=== PATIENT | male | born 1945 | race Hispanic/Latino ===

== ENCOUNTER 2018-02-08 18:35 | Emergency (ER) | payer OTHER ==
--- OUTSIDE RECORDS SUMMARY | 2018-02-08 18:37 | XMS REPORT | Clinical Summary ---
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 qualitative assessment is normal (55-60%). Normal diastolic function. LA size is normal (16-34 ml/m2). 2. The right ventricular chamber size and systolic function are within normal limits. RA cavity size is normal. Unable to estimate peak systolic PA pressure; inadequate TR velocity signal. 3. No significant valvular abnormalities. Previous Study No prior exam available for comparison. Signature Findings Technical Quality: Technically adequate exam. Rhythm/BP Sinus bradycardia during the exam. Left Ventricle The LV endocardium is partially visualized. Consider IV ultrasound enhancing agent for improved endocardial border detection. The left ventricle is chamber size (by PSLAX dimension) is normal (male - LVIDd 4.2-5.8cm) . Mild concentric LV hypertrophy. All of the LV segments contract normally . Global LV systolic function normal . Estimated LVEF by qualitative assessment is normal (55-60%) . Normal diastolic function. Left Atrium LA is adequately visualized. LA size is normal (16-34 ml/m2) . Right Ventricle The right ventricular chamber size and systolic function are within normal limits. Right Atrium The RA is well visualized. RA cavity size is normal . Aortic Valve Mild AoV cusp thickening. No evidence of aortic stenosis. No evidence of aortic regurgitation. Mitral Valve Normal MV structure. Trace mitral regurgitation. Tricuspid Valve TV structure is normal. A trace of tricuspid regurgitation. Unable to estimate peak systolic PA pressure; inadequate TR velocity signal. Pulmonic Valve Normal PV structure and function by limited views and Doppler. Aorta Aortic root size (SInus of Valsalva diameter) is normal . Pericardium No pericardial effusion is visualized. IVC/SVC/PA/PV/Pleural The inferior vena cava is adequately visualized. The inferior vena cava size is normal . The estimated RA pressure by IVC dynamics 5-10mmHg . A left pleural effusion is noted. Left pleural effusion appears small in size. Chambers/Structures Left Atrium LA Dimension: 3.76 cm LA Area: 19.72 cm^2 LA Volume: 54.78 ml LA Vol. Index: 29 ml/m^2 Left Ventricle LVIDd: 4.8 cm LVIDs: 3.27 cm LV Septum Diastolic: 1.27 cm LV PW Diastolic: 1.22 cm LV FS: 31.9 % LVOT Diameter: 2.1 cm Aorta Ao Root S of Wendy.: 2.99 cm Doppler/Quantitative Measurements Mitral Valve MV Peak E-Wave: 0.75 m/s MV Peak A-Wave: 0.51 m/s E/A Ratio: 1.49 Peak Gradient: 2.26 mmHg Deceleration Time: 144.6 msec MV Fabian. Peak: Tissue Doppler E' Lateral Velocity: 0.12 m/s A' Lateral Velocity: 0.08 m/s E/E': 6.38 Aortic Valve Peak Velocity: 0.82 m/s Mean Velocity: 0.59 m/s Peak Gradient: 2.67 mmHg Mean Gradient: 1.51 mmHg AV Area (continuity): 2.89 cm^2 AV VTI: 19.28 cm AV DVI: 0.84 LVOT Peak Velocity: 0.68 m/s Peak Gradient: 1.85 mmHg Mean Velocity: 0.44 m/s Mean Gradient: 0.92 mmHg LVOT Diameter: 2.1 cm LVOT VTI: 16.11 cm LVOT Area: 3.46 cm^2 LVOT SV:55.77 ml LVOT CO: 3.29 l/min LVOT CI: 1.73 l/min/m^2 Troponin I (07/12/2017 11:08 PM) Component Value Ref Range Troponin I 0.03 0.00 - 0.03 ng/mL Specimen Performing Laboratory Blood [address] [address] Narrative Troponin I (TnI) levels must be interpreted in the context of the presenting symptoms and the clinical findings. Elevated TnI levels indicate myocardial damage, but are not specific for ischemic heart disease. Elevated TnI levels are seen in patients with other cardiac conditions (including myocarditis and congestive heart failure), and slight TnI elevations occur in patients with other conditions, including sepsis, renal failure, acidosis, acute neurological disease, and persistent tachyarrhythmia. Creatine Kinase (CK), Total and MB (07/12/2017 11:08 PM) Component Value Ref Range Total CK 224 (H) 29 - 200 U/L CK-MB 2.8 0.0 - 6.6 ng/mL MB Relative Index 1.3 % Specimen Performing Laboratory Blood [address] [address] Narrative CK-MB Reference Range: <6.7Normal 6.7-10.0Borderline >10.0 Abnormal Blood gas, arterial (07/09/2017 6:32 PM) Component Value Ref Range pH, Arterial 7.34 (L) 7.35 - 7.45 pCO2, Arterial 43 35 - 45 mmHg pO2, Arterial 86 80 - 90 mmHg O2 Sat, Arterial 96.0 96.0 - 97.0 % HCO3, Arterial 23 21 - 29 mmol/L Base Excess, Arterial -3.2 (L) -2.0 - 3.0 mmol/L Patient Temperature 37.0 C FIO2 36.0 % Specimen Performing Laboratory Blood, Arterial - Line, Arterial [address] [address] CBC with platelet count + automated diff (07/09/2017 6:30 PM)Only the most recent of3 resultswithin the time period is included. Component Value Ref Range WBC 15.2 (H) 3.5 - 10.5 K/L RBC 3.37 (L) 4.63 - 6.08 M/L Hemoglobin 11.1 (L) 13.7 - 17.5 GM/DL Hematocrit 32.7 (L) 40.1 - 51.0 % MCV 97.0 (H) 79.0 - 92.2 fL MCH 32.9 (H) 25.7 - 32.2 pg MCHC 33.9 32.3 - 36.5 GM/DL RDW 13.1 11.6 - 14.4 % Platelets 428 150 - 450 K/CU MM MPV 9.3 (L) 9.4 - 12.4 fL nRBC 0 0 - 0 /100 WBC % Neutros 80 % % Lymphs 14 % % Monos 4 % % Eos 0 % % Baso 0 % # Neutros 12.19 (H) 1.78 - 5.38 K/L # Lymphs 2.11 1.32 - 3.57 K/L # Monos 0.66 0.30 - 0.82 K/L # Eos 0.03 (L) 0.04 - 0.54 K/L # Baso 0.06 0.01 - 0.08 K/L Immature Granulocytes-Relative 1 0 - 1 % Specimen Performing Laboratory Blood [address] [address] Prothrombin time/INR (07/09/2017 6:30 PM)Only the most recent of4 resultswithin the time period is included. Component Value Ref Range Protime 14.6 11.7 - 14.7 seconds INR 1.1 <=5.9 Specimen Performing Laboratory Blood [address] [address] Narrative RECOMMENDED COUMADIN/WARFARIN INR THERAPY RANGES STANDARD DOSE: 2.0 - 3.0 Includes: PROPHYLAXIS for venous thrombosis, systemic embolization; TREATMENT for venous thrombosis and/or pulmonary embolus. HIGH RISK: Target INR is 2.5-3.5 for patients with mechanical heart valves. CBC with platelet count + automated diff (07/09/2017 6:30 PM)Only the most recent of3 resultswithin the time period is included. Specimen Performing Laboratory Blood Narrative The following orders were created for panel order CBC with platelet count + automated diff. Procedure Abnormality Status --------- ------ CBC with platelet count ...[[id number]]AbnormalFinal result Please view results for these tests on the individual orders. Comprehensive metabolic panel (07/09/2017 6:30 PM) Component Value Ref Range Protein, Total 6.4 6.0 - 8.3 gm/dL Albumin 2.7 (L) 3.5 - 5.0 g/dL Alkaline Phosphatase 121 40 - 150 U/L Total Bilirubin 0.5 0.2 - 1.2 mg/dL Sodium 135 (L) 136 - 145 meq/L Potassium 3.3 (L) 3.5 - 5.1 meq/L Chloride 106 98 - 107 meq/L CO2 22 22 - 29 meq/L BUN 6 (L) 7 - 21 mg/dL Creatinine 0.55 (L) 0.57 - 1.25 mg/dL Glucose 108 (H) 70 - 105 mg/dL Calcium 8.5 8.4 - 10.2 mg/dL AST 27 5 - 34 U/L ALT 16 6 - 55 U/L EGFR 147Comment: ESTIMATED GFR IS NOT ACCURATE mL/min/1.73 sq m CREATININE CLEARANCE IN PREDICTING GLOMERULAR FILTRATION RATE. ESTIMATED GFR IS NOT APPLICABLE FOR DIALYSIS PATIENTS. Specimen Performing Laboratory Blood [address] [address] POC ACTIVATED CLOTTING TIME (07/09/2017 4:51 PM)Only the most recent of4 resultswithin the time period is included. Component Value Ref Range Activated Clotting Time 142Comment: TESTED AT [address] sec [address] Specimen Performing Laboratory [address] [address] Electrolytes (07/06/2017 1:11 PM) Component Value Ref Range Sodium 134 (L) 136 - 145 meq/L Potassium 3.9 3.5 - 5.1 meq/L Chloride 98 98 - 107 meq/L CO2 27 22 - 29 meq/L Specimen Performing Laboratory Blood [address] [address] PERIPHERAL VASCULAR REPORT - SCAN (07/02/2017 12:50 PM)Only the most recent of2 resultswithin the time period is included.Arterial doppler legs bilateral (07/02 9:30 AM) Component Value Ref Range Ejection Fraction Specimen Performing Laboratory [facility] CPACS Impressions Right Impression 1. The common femoral and profunda arteries are patent with triphasic/biphasic flow and calcified vessels. 2. There is > 50% stenosis of the common femoral artery with a peak velocity of 220 cm/s. 3. The superficial femoral, popliteal, peroneal and proximal and mid posterior tibial arteries are occluded. 4. The femoral to posterior tibial bypass is occluded. 5. The anterior tibial artery is patent with slow velocity monophasic flow. 6. The PT and DP MARC's were unobtainable due to the doppler not being able to milk pickup truck driver the low monophasic flow. 7. The TBI was unobtainable for the toes had no detectable flow by PPG. Left Impression 1. The common femoral, profunda femoral, popliteal, and anterior tibial arteries are patent with triphasic to monophasic Doppler waveforms throughout with calcified vessels. 2. The superficial femoral, posterior tibial and peroneal arteries are occluded. 3. There is > 50% stenosis of the proximal anterior tibial artery with an elevated velocity of 256 cm/s. 4. The PT MARC is unobtainable. The DP MARC is 0.58, within severe obstruction range. 5. The TBI was unobtainable for the digit had no flow by PPG. 6. Digits two through five had reduced flow by PPG. Digit one had no flow by PPG. Conclusions Summary Arterial pressures and Doppler analysis were performed bilaterally. Adequate Doppler signals were obtained. On the right, the common femoral and profunda arteries were patent with triphasic/biphasic flow and calcified vessels. There was stenosis of the femoral artery. The superficial femoral, popliteal, peroneal and proximal and mid posterior tibial, and the femoral to posterior tibial bypass are occluded. The anterior tibial artery was patent with slow velocity monophasic flow. The PT and DP MARC's were unobtainable due to the doppler not being able to milk pickup truck driver the low monophasic flow. The TBI was unobtainable for the toes had no detectable flow by PPG. On the left, the common femoral, profunda femoral, popliteal, and anterior tibial arteries were patent with triphasic to monophasic Doppler waveforms throughout with calcified vessels. The superficial femoral, posterior tibial and peroneal arteries were occluded. There was stenosis of the proximal anterior tibial artery. The PT MARC was unobtainable. The DP MARC was within the severe obstruction range. The TBI was unobtainable for the digit had no flow by PPG. Digits two through five had reduced flow by PPG. Digit one had no flow by PPG. Signature Velocities are measured in cm/s ; Diameters are measured in cm LE Duplex Measurements Right Left + + + + + + + + + + !Location ! !PSV !EDV!Waveform ! !PSV !EDV!Waveform ! + + + + + + + + + + !Mid Common Femoral ! !220 ! !Triphasic! !149 ! !Triphasic! + + + + + + + + + + !Prox PFA ! !87.4! !Biphasic ! !111 ! !Biphasic ! + + + + + + + + + + !Prox SFA ! !! !Absent ! !! !Absent ! + + + + + + + + + + !Mid SFA ! !! !Absent ! !! !Absent ! + + + + + + + + + + !Dist SFA ! !! !Absent ! !! !Absent ! + + + + + + + + + + !Prox Popliteal ! !! !Absent ! !57.4! !Monophasic ! + + + + + + + + + + !Dist Popliteal ! !! !Absent ! !58.1! !Monophasic ! + + + + + + + + + + !Prox WORKFORCE CONSULTANT ! !! !Absent ! !! !Absent ! + + + + + + + + + + !Mid WORKFORCE CONSULTANT ! !! !Absent ! !! !Absent ! + + + + + + + + + + !Dist WORKFORCE CONSULTANT ! !24.4! !Monophasic ! !! !Absent ! + + + + + + + + + + !Prox LEIDY ! !17.9! !Monophasic ! !256 ! !Monophasic ! + + + + + + + + + + !Mid LEIDY ! !17.9! !Monophasic ! !44.4! !Monophasic ! + + + + + + + + + + !Dist LEIDY ! !11.8! !Monophasic ! !53! !Monophasic ! + + + + + + + + + + !Prox Peroneal ! !! !Absent ! !! !Absent ! + + + + + + + + + + !Dist Peroneal ! !! !Absent ! !! !Absent ! + + + + + + + + + + Narrative [facility] - Lower Extremity Arterial Duplex Demographics Patient NameJOSE DANIEL WALKER Date of Study 07/02/2017 72 Visit [id number] Male of 1945 Number Referring Orlin MainRoom Number 1110 Physician Dietary Internship Robert William. InterpretingJ. Meek Gutierres RVT, Theodora NARVAEZ, RPVI Procedure Type of Study: Extremities Arteries: Lower Extremities Arterial Duplex, ARTERIAL DOPPLER LEGS, BILATERAL. Patient Status:TODAY. Study Location:Vascular Lab. Technical Quality:Adequate visualization. Risk Factors History of Disease + + + + !Diagnosis !Date!Comments ! + + + + !History/Risk Factors: !06/30/2017!PVD ! !!!Smoker ! !!!HTN ! !!!S/P Right LE bypass graft(occluded) ! + + + + Procedure Note Interface, External Ris In - 07/02/2017 12:06 PM CDT [facility] - Lower Extremity Arterial Duplex Demographics Patient Name JOSE DANIEL WALKER Date of Study 07/02/2017 Age 72 Visit Number [id number] Gender Male Date of 1945 Number Referring Orlin Main Room Number 1110 Physician Dietary Internship Robert William. Stefan Gutierres Pawan, ARS Physician , RPELE Procedure Type of Study: Extremities Arteries: Lower Extremities Arterial Duplex, ARTERIAL DOPPLER LEGS, BILATERAL. Patient Status:TODAY. Study Location:Vascular Lab. Technical Quality:Adequate visualization. Risk Factors History of Disease + + + + !Diagnosis !Date !Comments ! + + + + !History/Risk Factors: !06/30/2017!PVD ! ! ! !Smoker ! ! ! !HTN ! ! ! !S/P Right LE bypass graft(occluded) ! + + + + Impressions Right Impression 1. The common femoral and profunda arteries are patent with triphasic/biphasic flow and calcified vessels. 2. There is > 50% stenosis of the common femoral artery with a peak velocity of 220 cm/s. 3. The superficial femoral, popliteal, peroneal and proximal and mid posterior tibial arteries are occluded. 4. The femoral to posterior tibial bypass is occluded. 5. The anterior tibial artery is patent with slow velocity monophasic flow. 6. The PT and DP MARC's were unobtainable due to the doppler not being able to milk pickup truck driver the low monophasic flow. 7. The TBI was unobtainable for the toes had no detectable flow by PPG. Left Impression 1. The common femoral, profunda femoral, popliteal, and anterior tibial arteries are patent with triphasic to monophasic Doppler waveforms throughout with calcified vessels. 2. The superficial femoral, posterior tibial and peroneal arteries are occluded. 3. There is > 50% stenosis of the proximal anterior tibial artery with an elevated velocity of 256 cm/s. 4. The PT MARC is unobtainable. The DP MARC is 0.58, within severe obstruction range. 5. The TBI was unobtainable for the digit had no flow by PPG. 6. Digits two through five had reduced flow by PPG. Digit one had no flow by PPG. Conclusions Summary Arterial pressures and Doppler analysis were performed bilaterally. Adequate Doppler signals were obtained. On the right, the common femoral and profunda arteries were patent with triphasic/biphasic flow and calcified vessels. There was stenosis of the femoral artery. The superficial femoral, popliteal, peroneal and proximal and mid posterior tibial, and the femoral to posterior tibial bypass are occluded. The anterior tibial artery was patent with slow velocity monophasic flow. The PT and DP MARC's were unobtainable due to the doppler not being able to milk pickup truck driver the low monophasic flow. The TBI was unobtainable for the toes had no detectable flow by PPG. On the left, the common femoral, profunda femoral, popliteal, and anterior tibial arteries were patent with triphasic to monophasic Doppler waveforms throughout with calcified vessels. The superficial femoral, posterior tibial and peroneal arteries were occluded. There was stenosis of the proximal anterior tibial artery. The PT MRAC was unobtainable. The DP MARC was within the severe obstruction range. The TBI was unobtainable for the digit had no flow by PPG. Digits two through five had reduced flow by PPG. Digit one had no flow by PPG. Signature Velocities are measured in cm/s ; Diameters are measured in cm LE Duplex Measurements Right Left + + + ------+ + + + +-------- ---------+ + !Location ! !PSV !EDV !Waveform ! !PSV !EDV !Waveform ! + + + ------+ + + + +-------- ---------+ + !Mid Common Femoral ! !220 ! !Triphasic ! !149 ! !Triphasic ! + + + ------+ + + + +-------- ---------+ + !Prox PFA ! !87.4 ! !Biphasic ! !111 ! !Biphasic ! + + + ------+ + + + +-------- ---------+ + !Prox SFA ! ! ! !Absent ! ! ! !Absent ! + + + ------+ + + + +-------- ---------+ + !Mid SFA ! ! ! !Absent ! ! ! !Absent ! + + + ------+ + + + +-------- ---------+ + !Dist SFA ! ! ! !Absent ! ! ! !Absent ! + + + ------+ + + + +-------- ---------+ + !Prox Popliteal ! ! ! !Absent ! !57.4 ! !Monophasic ! + + + ------+ + + + +-------- ---------+ + !Dist Popliteal ! ! ! !Absent ! !58.1 ! !Monophasic ! + + + ------+ + + + +-------- ---------+ + !Prox WORKFORCE CONSULTANT ! ! ! !Absent ! ! ! !Absent ! + + + ------+ + + + +-------- ---------+ + !Mid WORKFORCE CONSULTANT ! ! ! !Absent ! ! ! !Absent ! + + + ------+ + + + +-------- ---------+ + !Dist WORKFORCE CONSULTANT ! !24.4 ! !Monophasic ! ! ! !Absent ! + + + ------+ + + + +-------- ---------+ + !Prox LEIDY ! !17.9 ! !Monophasic ! !256 ! !Monophasic ! + + + ------+ + + + +-------- ---------+ + !Mid LEIDY ! !17.9 ! !Monophasic ! !44.4 ! !Monophasic ! + + + ------+ + + + +-------- ---------+ + !Dist LEIDY ! !11.8 ! !Monophasic ! !53 ! !Monophasic ! + + + ------+ + + + +-------- ---------+ + !Prox Peroneal ! ! ! !Absent ! ! ! !Absent ! + + + ------+ + + + +-------- ---------+ + !Dist Peroneal ! ! ! !Absent ! ! ! !Absent ! + + + ------+ + + + +-------- ---------+ + PT/aPTT (07/02/2017 3:55 AM) Component Value Ref Range Protime 14.6 11.7 - 14.7 seconds INR 1.2 <=5.9 PTT 39.3 (H) 22.5 - 36.0 seconds Specimen Performing Laboratory [place] [address] Narrative RECOMMENDED COUMADIN/WARFARIN INR THERAPY RANGES STANDARD DOSE: 2.0 - 3.0 Includes: PROPHYLAXIS for venous thrombosis, systemic embolization; TREATMENT for venous thrombosis and/or pulmonary embolus. HIGH RISK: Target INR is 2.5-3.5 for patients with mechanical heart valves. Vein Mapping Legs Bilateral (06/30/2017 6:35 PM) Component Value Ref Range Ejection Fraction Specimen Performing Laboratory [facility] CPACS Impressions Right Impression 1. There is no deep venous venous obstruction in the common femoral, profunda femoral, femoral, popliteal or posterior tibial veins. 2. Both peroneal and one posterior tibial veins are not seen. 3. The Great saphenous vein graft is occluded. 4. Small saphenous vein is not seen. Left Impression 1. There is no deep venous venous obstruction in the common femoral, profunda femoral, femoral, popliteal or posterior tibial veins. 2. Both peroneal and one posterior tibial veins are not seen. 3. There is no superficial venous obstruction in the great saphenous vein. 4. Small saphenous vein is not seen. Conclusions Summary Venous duplex imaging and compression of the bilateral lower extremities was performed. The veins were difficult to visualize due to arterial wall calcific shadowing. The bilateral deep venous systems were patent and compressible with no evidence of thrombus where visualized. The right Great saphenous vein graft is occluded. Usable greater Saphenous vein conduit in the left lower extremity. Superficial venous measurements are documented below. The venous Doppler waveforms were phasic with respiration. Signature Velocities are measured in cm/s ; Diameters are measured in cm LE Vein Mapping Superficial - Great Saphenous Vein Right Left + + + + + + + + !Location ! !Diameter!Depth ! !Diameter!Depth ! + + + + + + + + !GSV High Thigh ! !0.31 ! ! + + + + ------ -----+ !GSV Mid Thigh ! !0.35 ! ! + + + + ------ -----+ !GSV Low Thigh ! !0.36 ! ! + + + + ------ -----+ !GSV High Calf ! !0.35 ! ! + + + + ------ -----+ !GSV Mid Calf ! !0.34 ! ! + + + + ------ -----+ !GSV Low Calf ! !0.33 ! ! + + + + ------ -----+ !GSV Ankle ! !0.36 ! ! + + + + ------ -----+ Narrative [facility] - Lower Extremities Vein Mapping Demographics Patient Name El WALKER of Study06/30/2017 [id number] Age72 Visit Number [id number] Gender Male Accession Number [id number] [facility] of [facility]1945 [facility] [id number] Physician Brandi MenaInterpreting Aliza Wilder MD, VI Procedure Type of Study: Veins: Lower Extremity Vein Mapping, VEIN MAPPING, LOWER EXTREMITY, BILATERAL. Indications for Study:Pre-Op Vein Mapping for Arterial Venous Fistula or Graft. Patient Status:TODAY. Study Location:Portable. Technical Quality:Technically Difficult. Risk Factors History of Disease + + + + !Diagnosis !Date!Comments ! + + + + !History/Risk Factors: !06/30/2017!PVD ! !!!Smoker ! !!!HTN ! !!!S/P Right LE bypass graft(occluded) ! + + + + Procedure Note Interface, External Ris In - 07/01/2017 6:18 AM CDT [facility] - Lower Extremities Vein Mapping Demographics Patient Name JOSE DANIEL WALKER Date of Study 06/30/2017 Age 72 Visit Number [id number] Gender Male Accession Number [id number] Date of 1945 Referring Orlin Main Room Number 1110 Physician Dietary Internship Caitlin Gutierres T Physician , RPVI Procedure Type of Study: Veins: Lower Extremity Vein Mapping, VEIN MAPPING, LOWER EXTREMITY, BILATERAL. Indications for Study:Pre-Op Vein Mapping for Arterial Venous Fistula or Graft. Patient Status:TODAY. Study Location:Portable. Technical Quality:Technically Difficult. Risk Factors History of Disease + + + + !Diagnosis !Date !Comments ! + + + + !History/Risk Factors: !06/30/2017!PVD ! ! ! !Smoker ! ! ! !HTN ! ! ! !S/P Right LE bypass graft(occluded) ! + + + + Impressions Right Impression 1. There is no deep venous venous obstruction in the common femoral, profunda femoral, femoral, popliteal or posterior tibial veins. 2. Both peroneal and one posterior tibial veins are not seen. 3. The Great saphenous vein graft is occluded. 4. Small saphenous vein is not seen. Left Impression 1. There is no deep venous venous obstruction in the common femoral, profunda femoral, femoral, popliteal or posterior tibial veins. 2. Both peroneal and one posterior tibial veins are not seen. 3. There is no superficial venous obstruction in the great saphenous vein. 4. Small saphenous vein is not seen. Conclusions Summary Venous duplex imaging and compression of the bilateral lower extremities was performed. The veins were difficult to visualize due to arterial wall calcific shadowing. The bilateral deep venous systems were patent and compressible with no evidence of thrombus where visualized. The right Great saphenous vein graft is occluded. Usable greater Saphenous vein conduit in the left lower extremity. Superficial venous measurements are documented below. The venous Doppler waveforms were phasic with respiration. Signature Velocities are measured in cm/s ; Diameters are measured in cm LE Vein Mapping Superficial - Great Saphenous Vein Right Left + + + + + + -----+ + !Location ! !Diameter !Depth ! !Diameter !Depth ! + + + + + + -----+ + !GSV High Thigh ! !0.31 ! ! + + + ------+ + !GSV Mid Thigh ! !0.35 ! ! + + + ------+ + !GSV Low Thigh ! !0.36 ! ! + + + ------+ + !GSV High Calf ! !0.35 ! ! + + + ------+ + !GSV Mid Calf ! !0.34 ! ! + + + ------+ + !GSV Low Calf ! !0.33 ! ! + + + ------+ + !GSV Ankle ! !0.36 ! ! + + + ------+ + XR chest AP portable (06/27/2017 10:40 PM) Specimen Performing Laboratory GE RIS Narrative FINAL REPORT Comparison examination: None No pneumothorax, focal pulmonary consolidation, or significant pleural effusion. Normal cardiomediastinal contours. Demineralized skeleton. Multiple old healed left rib fractures. Normal soft tissues. Impression: No acute abnormality. Signed: Edmar Carmona MD Report Verified Date/Time:06/28/2017 01:35:21 Reading Location: [facility] [id number] Ortho Consult Reading Room Procedure Note Interface, External Ris In - 06/28/2017 1:37 AM CDT FINAL REPORT Comparison examination: None No pneumothorax, focal pulmonary consolidation, or significant pleural effusion. Normal cardiomediastinal contours. Demineralized skeleton. Multiple old healed left rib fractures. Normal soft tissues. Impression: No acute abnormality. Signed: Edmar Carmona MD Report Verified Date/Time: 06/28/2017 01:35:21 Reading Location: [facility] [address] [id number] Ortho Consult Reading Room after 02/07/2017
--- OUTSIDE RECORDS SUMMARY | 2018-02-08 18:39 | XMS REPORT ---
:1945 [facility] Address [address] [place] [address] Care Team Providers Name Role Phone STEPHANIE BONE Unavailable Unavailable EMORYBARBER Unavailable Unavailable Problems This patient has no known problems. Allergies, Adverse Reactions, Alerts This patient has no known allergies or adverse reactions. Medications This patient has no known medications. Results Test Description Test Time Test Comments Text Results Atomic Results Result Comments TISSUE EXAM 2017-07-30 11:00:00 Surgical Pathology Report Case: [id number] Authorizing Provider: Stephanie Bone MD Collected: 07/22/2017 1348 Ordering Location: [facility] PERI[facility] Received: 07/23/2017 0851 SERVICES Pathologist: Marquis Carolina MD Specimen: Leg, Right, RIGHT ABOVE KNEE AMPUTATION BONE AND SOFT TISSUE, RIGHT LEG, AMPUTATION: -GANGRENOUS NECROSIS -BONE AND SOFT TISSUE MARGINS VIABLE Signing Pathologist Direct Phone Line: [phone] signed by Marquis Carolina MD on 07/30/2017 at 11:00 [id number] leg acute ischemiaRight above-knee amputation The specimen is received in a biohazard bag labeled with the patient's information and labeled "right above-knee amputation" and consists of a right majra-vrb-uwup amputation with exposed femur measuring 7 cm in length x 3 cm in diameter, leg from resection margin to heel measuring 20 x 9 cm and foot from heel to great toe measuring 21 x 7 cm. The entire foot has a blue-purple discoloration with all toes completely involved with gangrene. The area measures ___ 13 x 7 cm in greatest dimension. There are also two gangrenous wounds, one on the lateral malleolus measuring 1.5 cm and on the heel measuring 4 cm in greatest dimension. The anterior and posterior tibialis vessels have atherosclerotic changes with thrombi.Section code: A1, skin margin en face; A2, area of gangrene and underlying bone on lateral malleolus; A3, gangrenous skin from other areas described; A4, cross section of 5th digit submitted for decalcification; A5, femoropopliteal vessels; A6, anterior tibialis vessels; A7, posterior tibialis vessels (A5 through A7 for light decal); A8, bone marrow from femur submitted for light decal. CG/ewThe soft tissue sections demonstrate marked acute and chronic inflammation with necrosis and overlying ulceration of the epidermis. The bone shows marrow necrosis with fibrovascular replacement, chronic inflammation, and bony remodeling POCT-GLUCOSE METER 2017-07-25 12:09:00 Test Item Value Reference Range Comments POC-GLUCOSE METER (BEAKER) (test 100 mg/dL 70-110 TESTED AT [facility] [address] [facility] exgc=5360) [facility] [address] [id number] 09:25:00 Test Item Value Reference Range Comments PHOSPHORUS (BEAKER) (test dfua=680) 2.8 mg/dL 2.3-4.7 [id number] 09:25:00 Test Item Value Reference Range Comments MAGNESIUM (BEAKER) (test buvr=363) 1.9 mg/dL 1.6-2.6 BASIC METABOLIC [id number] 09:25:00 Test Item Value Reference Range Comments SODIUM (BEAKER) (test 129 meq/L 136-145 bpgn=248) POTASSIUM (BEAKER) (test 4.5 meq/L 3.5-5.1 widu=187) CHLORIDE (BEAKER) (test 98 meq/L 98-107 jale=256) CO2 (BEAKER) (test 23 meq/L 22-29 ooge=889) BLOOD UREA NITROGEN 10 mg/dL 7-21 (BEAKER) (test bqmn=567) CREATININE (BEAKER) (test 0.57 mg/dL 0.57-1.25 ktgi=231) GLUCOSE RANDOM (BEAKER) 92 mg/dL 70-105 (test phak=237) CALCIUM (BEAKER) (test 8.7 mg/dL 8.4-10.2 medc=249) EGFR (BEAKER) (test 141 mL/min/1.73 sq m ESTIMATED GFR IS NOT iljk=9627) ACCURATE CREATININE CLEARANCE IN PREDICTING GLOMERULAR FILTRATION RATE. ESTIMATED GFR IS NOT APPLICABLE FOR DIALYSIS PATIENTS. POCT-GLUCOSE [id number] 08:41:00 Test Item Value Reference Range Comments POC-GLUCOSE METER (BEAKER) 94 mg/dL 70-110 TESTED AT [address] (test hylr=3436) [facility] [address] CBC (HEMOGRAM ONLY)2017-07-25 07:20:00 Test Item Value Reference Range Comments WHITE BLOOD CELL COUNT (BEAKER) (test mkij=108) 10.3 K/ L 3.5-10.5 RED BLOOD CELL COUNT (BEAKER) (test lyco=585) 3.19 M/ L 4.63-6.08 HEMOGLOBIN (BEAKER) (test sqca=785) 10.0 GM/DL 13.7-17.5 HEMATOCRIT (BEAKER) (test gvjd=261) 30.3 % 40.1-51.0 MEAN CORPUSCULAR VOLUME (BEAKER) (test sicy=565) 95.0 fL 79.0-92.2 MEAN CORPUSCULAR HEMOGLOBIN (BEAKER) (test 31.3 pg 25.7-32.2 zwlj=720) MEAN CORPUSCULAR HEMOGLOBIN CONC (BEAKER) (test 33.0 GM/DL 32.3-36.5 dkdz=827) RED CELL DISTRIBUTION WIDTH (BEAKER) (test 13.8 % 11.6-14.4 uuil=787) PLATELET COUNT (BEAKER) (test fksl=022) 576 K/CU MM 150-450 MEAN PLATELET VOLUME (BEAKER) (test tpyh=104) 9.2 fL 9.4-12.4 NUCLEATED RED BLOOD CELLS (BEAKER) (test 0 /100 WBC 0-0 zsnl=161) POCT-GLUCOSE [id number] 22:44:00 Test Item Value Reference Range Comments POC-GLUCOSE METER (BEAKER) 118 mg/dL 70-110 TESTED AT [address] (test wtax=0868) [facility] [address] POCT-GLUCOSE [id number] 17:45:00 Test Item Value Reference Range Comments POC-GLUCOSE METER (BEAKER) 96 mg/dL 70-110 TESTED AT [address] (test fgxy=2415) [place] [id number] POCT-GLUCOSE [id number] 12:54:00 Test Item Value Reference Range Comments POC-GLUCOSE METER (BEAKER) 94 mg/dL 70-110 TESTED AT [facility] [address] [facility] (test irhb=7675) [facility] [address] POCT-GLUCOSE [id number] 07:59:00 Test Item Value Reference Range Comments POC-GLUCOSE METER (BEAKER) 123 mg/dL 70-110 TESTED AT [facility] [address] [facility] (test cjtr=8688) [facility] [address] [id number] 07:44:00 Test Item Value Reference Range Comments MAGNESIUM (BEAKER) (test ppso=069) 1.8 mg/dL 1.6-2.6 [id number] 07:44:00 Test Item Value Reference Range Comments PHOSPHORUS (BEAKER) (test svwr=539) 3.3 mg/dL 2.3-4.7 BASIC METABOLIC [id number] 07:44:00 Test Item Value Reference Range Comments SODIUM (BEAKER) (test 132 meq/L 136-145 yqmb=832) POTASSIUM (BEAKER) (test 3.7 meq/L 3.5-5.1 catl=611) CHLORIDE (BEAKER) (test 100 meq/L 98-107 kkig=316) CO2 (BEAKER) (test 26 meq/L 22-29 evlt=982) BLOOD UREA NITROGEN 5 mg/dL 7-21 (BEAKER) (test ztyl=329) CREATININE (BEAKER) (test 0.56 mg/dL 0.57-1.25 lfhc=958) GLUCOSE RANDOM (BEAKER) 87 mg/dL 70-105 (test pewh=053) CALCIUM (BEAKER) (test 8.6 mg/dL 8.4-10.2 hvkl=284) EGFR (BEAKER) (test 144 mL/min/1.73 sq m ESTIMATED GFR IS NOT xtvm=1643) ACCURATE CREATININE CLEARANCE IN PREDICTING GLOMERULAR FILTRATION RATE. ESTIMATED GFR IS NOT APPLICABLE FOR DIALYSIS PATIENTS. CBC (HEMOGRAM ONLY)2017-07-24 07:38:00 Test Item Value Reference Range Comments WHITE BLOOD CELL COUNT (BEAKER) (test wmxh=090) 10.1 K/ L 3.5-10.5 RED BLOOD CELL COUNT (BEAKER) (test szyx=155) 3.07 M/ L 4.63-6.08 HEMOGLOBIN (BEAKER) (test wiiu=878) 9.7 GM/DL 13.7-17.5 HEMATOCRIT (BEAKER) (test evvt=994) 28.9 % 40.1-51.0 MEAN CORPUSCULAR VOLUME (BEAKER) (test qhkq=436) 94.1 fL 79.0-92.2 MEAN CORPUSCULAR HEMOGLOBIN (BEAKER) (test 31.6 pg 25.7-32.2 fvwt=015) MEAN CORPUSCULAR HEMOGLOBIN CONC (BEAKER) (test 33.6 GM/DL 32.3-36.5 gwjq=515) RED CELL DISTRIBUTION WIDTH (BEAKER) (test 14.0 % 11.6-14.4 grwu=237) PLATELET COUNT (BEAKER) (test ecxi=569) 576 K/CU MM 150-450 MEAN PLATELET VOLUME (BEAKER) (test icam=463) 9.4 fL 9.4-12.4 NUCLEATED RED BLOOD CELLS (BEAKER) (test 0 /100 WBC 0-0 dkxk=827) POCT-GLUCOSE [id number] 21:18:00 Test Item Value Reference Range Comments POC-GLUCOSE METER (BEAKER) 122 mg/dL 70-110 TESTED AT [address] (test zzhf=5469) [place] [address] POCT-GLUCOSE [id number] 17:07:00 Test Item Value Reference Range Comments POC-GLUCOSE METER (BEAKER) 99 mg/dL 70-110 TESTED AT [address] (test bxtz=8663) [place] [address] POCT-GLUCOSE [id number] 11:53:00 Test Item Value Reference Range Comments POC-GLUCOSE METER (BEAKER) 123 mg/dL 70-110 TESTED AT [address] (test ikxj=5542) [place] [address] POCT-GLUCOSE [id number] 08:08:00 Test Item Value Reference Range Comments POC-GLUCOSE METER (BEAKER) 124 mg/dL 70-110 TESTED AT [address] (test tnxe=9127) [place] [address] [id number] 06:48:00 Test Item Value Reference Range Comments MAGNESIUM (BEAKER) (test 1.8 mg/dL 1.6-2.6 Specimen slightly hemolyzed lhts=263) [id number] 06:48:00 Test Item Value Reference Range Comments PHOSPHORUS (BEAKER) (test 3.5 mg/dL 2.3-4.7 Specimen slightly hemolyzed ymyl=888) BASIC METABOLIC [id number] 06:48:00 Test Item Value Reference Range Comments SODIUM (BEAKER) (test 129 meq/L 136-145 dyow=392) POTASSIUM (BEAKER) (test 4.0 meq/L 3.5-5.1 Specimen slightly enuv=031) hemolyzed CHLORIDE (BEAKER) (test 98 meq/L 98-107 dmxf=817) CO2 (BEAKER) (test 23 meq/L 22-29 bkni=096) BLOOD UREA NITROGEN 5 mg/dL 7-21 (BEAKER) (test wimk=614) CREATININE (BEAKER) (test 0.57 mg/dL 0.57-1.25 Specimen slightly nrgr=223) hemolyzed GLUCOSE RANDOM (BEAKER) 123 mg/dL 70-105 (test rkeb=044) CALCIUM (BEAKER) (test 8.8 mg/dL 8.4-10.2 mudm=764) EGFR (BEAKER) (test 141 mL/min/1.73 sq m ESTIMATED GFR IS NOT aznu=8423) ACCURATE CREATININE CLEARANCE IN PREDICTING GLOMERULAR FILTRATION RATE. ESTIMATED GFR IS NOT APPLICABLE FOR DIALYSIS PATIENTS. CBC (HEMOGRAM ONLY)2017-07-23 06:23:00 Test Item Value Reference Range Comments WHITE BLOOD CELL COUNT (BEAKER) (test bjtm=990) 14.6 K/ L 3.5-10.5 RED BLOOD CELL COUNT (BEAKER) (test hxtu=686) 3.43 M/ L 4.63-6.08 HEMOGLOBIN (BEAKER) (test dffm=364) 10.9 GM/DL 13.7-17.5 HEMATOCRIT (BEAKER) (test tmio=476) 32.2 % 40.1-51.0 MEAN CORPUSCULAR VOLUME (BEAKER) (test eomy=400) 93.9 fL 79.0-92.2 MEAN CORPUSCULAR HEMOGLOBIN (BEAKER) (test 31.8 pg 25.7-32.2 vkfw=710) MEAN CORPUSCULAR HEMOGLOBIN CONC (BEAKER) (test 33.9 GM/DL 32.3-36.5 qcoo=136) RED CELL DISTRIBUTION WIDTH (BEAKER) (test 13.7 % 11.6-14.4 tnaa=193) PLATELET COUNT (BEAKER) (test tpeh=014) 565 K/CU MM 150-450 MEAN PLATELET VOLUME (BEAKER) (test jjvd=321) 9.5 fL 9.4-12.4 NUCLEATED RED BLOOD CELLS (BEAKER) (test 0 /100 WBC 0-0 ddgr=177) POCT-GLUCOSE [id number] 07:35:00 Test Item Value Reference Range Comments POC-GLUCOSE METER (BEAKER) 106 mg/dL 70-110 TESTED AT [facility] [address] [facility] (test bvid=5569) [facility] [address] [id number] 06:24:00 Test Item Value Reference Range Comments PHOSPHORUS (BEAKER) (test ubmm=326) 3.3 mg/dL 2.3-4.7 [id number] 06:24:00 Test Item Value Reference Range Comments MAGNESIUM (BEAKER) (test cyab=101) 1.9 mg/dL 1.6-2.6 BASIC METABOLIC [id number] 06:24:00 Test Item Value Reference Range Comments SODIUM (BEAKER) (test 131 meq/L 136-145 kpnh=376) POTASSIUM (BEAKER) (test 4.4 meq/L 3.5-5.1 ptlk=391) CHLORIDE (BEAKER) (test 99 meq/L 98-107 atdy=974) CO2 (BEAKER) (test 24 meq/L 22-29 xnqu=895) BLOOD UREA NITROGEN 3 mg/dL 7-21 (BEAKER) (test jdxp=990) CREATININE (BEAKER) (test 0.60 mg/dL 0.57-1.25 dwfs=665) GLUCOSE RANDOM (BEAKER) 101 mg/dL 70-105 (test aqsx=663) CALCIUM (BEAKER) (test 8.7 mg/dL 8.4-10.2 jnxz=164) EGFR (BEAKER) (test 133 mL/min/1.73 sq m ESTIMATED GFR IS NOT pjek=0411) ACCURATE CREATININE CLEARANCE IN PREDICTING GLOMERULAR FILTRATION RATE. ESTIMATED GFR IS NOT APPLICABLE FOR DIALYSIS PATIENTS. CBC (HEMOGRAM ONLY)2017-07-22 06:15:00 Test Item Value Reference Range Comments WHITE BLOOD CELL COUNT (BEAKER) (test avki=306) 10.7 K/ L 3.5-10.5 RED BLOOD CELL COUNT (BEAKER) (test jvbp=334) 3.54 M/ L 4.63-6.08 HEMOGLOBIN (BEAKER) (test ewnr=889) 11.2 GM/DL 13.7-17.5 HEMATOCRIT (BEAKER) (test njan=232) 33.0 % 40.1-51.0 MEAN CORPUSCULAR VOLUME (BEAKER) (test magy=365) 93.2 fL 79.0-92.2 MEAN CORPUSCULAR HEMOGLOBIN (BEAKER) (test 31.6 pg 25.7-32.2 hbwy=901) MEAN CORPUSCULAR HEMOGLOBIN CONC (BEAKER) (test 33.9 GM/DL 32.3-36.5 wtxr=063) RED CELL DISTRIBUTION WIDTH (BEAKER) (test 13.7 % 11.6-14.4 yjqd=029) PLATELET COUNT (BEAKER) (test kgke=453) 548 K/CU MM 150-450 MEAN PLATELET VOLUME (BEAKER) (test cgqg=567) 8.9 fL 9.4-12.4 NUCLEATED RED BLOOD CELLS (BEAKER) (test 0 /100 WBC 0-0 ezqw=082) POCT-GLUCOSE [id number] 21:17:00 Test Item Value Reference Range Comments POC-GLUCOSE METER (BEAKER) 121 mg/dL 70-110 TESTED AT [address] (test khbo=8671) [place] [address] POCT-GLUCOSE [id number] 17:44:00 Test Item Value Reference Range Comments POC-GLUCOSE METER (BEAKER) 128 mg/dL 70-110 TESTED AT [address] (test mwns=5780) [place] [address] POCT-GLUCOSE [id number] 12:33:00 Test Item Value Reference Range Comments POC-GLUCOSE METER (BEAKER) 107 mg/dL 70-110 TESTED AT [address] (test gqii=8423) [place] [address] CBC (HEMOGRAM ONLY)2017-07-21 08:20:00 Test Item Value Reference Range Comments WHITE BLOOD CELL COUNT (BEAKER) (test qkpy=512) 12.1 K/ L 3.5-10.5 RED BLOOD CELL COUNT (BEAKER) (test wtst=829) 3.67 M/ L 4.63-6.08 HEMOGLOBIN (BEAKER) (test hiys=378) 11.6 GM/DL 13.7-17.5 HEMATOCRIT (BEAKER) (test qaqo=442) 34.6 % 40.1-51.0 MEAN CORPUSCULAR VOLUME (BEAKER) (test hogk=702) 94.3 fL 79.0-92.2 MEAN CORPUSCULAR HEMOGLOBIN (BEAKER) (test 31.6 pg 25.7-32.2 jhqo=926) MEAN CORPUSCULAR HEMOGLOBIN CONC (BEAKER) (test 33.5 GM/DL 32.3-36.5 crks=845) RED CELL DISTRIBUTION WIDTH (BEAKER) (test 13.9 % 11.6-14.4 gvzk=578) PLATELET COUNT (BEAKER) (test tpim=018) 566 K/CU MM 150-450 MEAN PLATELET VOLUME (BEAKER) (test hekg=269) 9.4 fL 9.4-12.4 NUCLEATED RED BLOOD CELLS (BEAKER) (test 0 /100 WBC 0-0 ttgs=507) [id number] 07:52:00 Test Item Value Reference Range Comments PHOSPHORUS (BEAKER) (test ffhw=997) 3.3 mg/dL 2.3-4.7 [id number] 07:52:00 Test Item Value Reference Range Comments MAGNESIUM (BEAKER) (test xcck=018) 1.7 mg/dL 1.6-2.6 BASIC METABOLIC [id number] 07:52:00 Test Item Value Reference Range Comments SODIUM (BEAKER) (test 129 meq/L 136-145 illl=419) POTASSIUM (BEAKER) (test 4.1 meq/L 3.5-5.1 xttw=567) CHLORIDE (BEAKER) (test 97 meq/L 98-107 yvir=803) CO2 (BEAKER) (test 25 meq/L 22-29 aksa=059) BLOOD UREA NITROGEN 4 mg/dL 7-21 (BEAKER) (test mqrg=620) CREATININE (BEAKER) (test 0.62 mg/dL 0.57-1.25 qamu=903) GLUCOSE RANDOM (BEAKER) 90 mg/dL 70-105 (test vxkv=503) CALCIUM (BEAKER) (test 8.7 mg/dL 8.4-10.2 sgyv=874) EGFR (BEAKER) (test 128 mL/min/1.73 sq m ESTIMATED GFR IS NOT cvli=9671) ACCURATE CREATININE CLEARANCE IN PREDICTING GLOMERULAR FILTRATION RATE. ESTIMATED GFR IS NOT APPLICABLE FOR DIALYSIS PATIENTS. POCT-GLUCOSE [id number] 22:43:00 Test Item Value Reference Range Comments POC-GLUCOSE METER (BEAKER) 99 mg/dL 70-110 TESTED AT [place] [id number] [facility] (test jjvc=2133) [facility] [address] POCT-GLUCOSE [id number] 12:13:00 Test Item Value Reference Range Comments POC-GLUCOSE METER (BEAKER) 97 mg/dL 70-110 TESTED AT [address] (test xmlw=6464) [facility] [address] [id number] 06:22:00 Test Item Value Reference Range Comments PHOSPHORUS (BEAKER) (test aybj=030) 3.5 mg/dL 2.3-4.7 [id number] 06:22:00 Test Item Value Reference Range Comments MAGNESIUM (BEAKER) (test vjno=282) 1.8 mg/dL 1.6-2.6 BASIC METABOLIC [id number] 06:22:00 Test Item Value Reference Range Comments SODIUM (BEAKER) (test 132 meq/L 136-145 uyni=433) POTASSIUM (BEAKER) (test 4.2 meq/L 3.5-5.1 daqy=520) CHLORIDE (BEAKER) (test 101 meq/L 98-107 jumc=388) CO2 (BEAKER) (test 23 meq/L 22-29 rlrm=612) BLOOD UREA NITROGEN 7 mg/dL 7-21 (BEAKER) (test zoyc=008) CREATININE (BEAKER) (test 0.60 mg/dL 0.57-1.25 kedd=607) GLUCOSE RANDOM (BEAKER) 95 mg/dL 70-105 (test suym=110) CALCIUM (BEAKER) (test 8.5 mg/dL 8.4-10.2 vomx=428) EGFR (BEAKER) (test 133 mL/min/1.73 sq m ESTIMATED GFR IS NOT zaci=5949) ACCURATE CREATININE CLEARANCE IN PREDICTING GLOMERULAR FILTRATION RATE. ESTIMATED GFR IS NOT APPLICABLE FOR DIALYSIS PATIENTS. CBC (HEMOGRAM ONLY)2017-07-20 05:43:00 Test Item Value Reference Range Comments WHITE BLOOD CELL COUNT (BEAKER) (test cvxh=678) 10.9 K/ L 3.5-10.5 RED BLOOD CELL COUNT (BEAKER) (test qeos=544) 3.58 M/ L 4.63-6.08 HEMOGLOBIN (BEAKER) (test iypq=911) 11.2 GM/DL 13.7-17.5 HEMATOCRIT (BEAKER) (test hhco=549) 33.6 % 40.1-51.0 MEAN CORPUSCULAR VOLUME (BEAKER) (test frzl=547) 93.9 fL 79.0-92.2 MEAN CORPUSCULAR HEMOGLOBIN (BEAKER) (test 31.3 pg 25.7-32.2 oltv=054) MEAN CORPUSCULAR HEMOGLOBIN CONC (BEAKER) (test 33.3 GM/DL 32.3-36.5 regv=084) RED CELL DISTRIBUTION WIDTH (BEAKER) (test 14.0 % 11.6-14.4 mkux=200) PLATELET COUNT (BEAKER) (test cjtv=762) 532 K/CU MM 150-450 MEAN PLATELET VOLUME (BEAKER) (test pevm=469) 9.3 fL 9.4-12.4 NUCLEATED RED BLOOD CELLS (BEAKER) (test 0 /100 WBC 0-0 gulh=744) POCT-GLUCOSE [id number] 20:13:00 Test Item Value Reference Range Comments POC-GLUCOSE METER (BEAKER) 113 mg/dL 70-110 TESTED AT [address] (test yftt=9612) [facility] [address] POCT-GLUCOSE [id number] 08:04:00 Test Item Value Reference Range Comments POC-GLUCOSE METER (BEAKER) 101 mg/dL 70-110 TESTED AT [address] (test hicr=9573) [facility] [address] [id number] 05:24:00 Test Item Value Reference Range Comments PHOSPHORUS (BEAKER) (test bzaz=860) 3.4 mg/dL 2.3-4.7 [id number] 05:24:00 Test Item Value Reference Range Comments MAGNESIUM (BEAKER) (test tuja=403) 1.8 mg/dL 1.6-2.6 BASIC METABOLIC [id number] 05:24:00 Test Item Value Reference Range Comments SODIUM (BEAKER) (test 128 meq/L 136-145 vcqn=669) POTASSIUM (BEAKER) (test 4.1 meq/L 3.5-5.1 ccgz=418) CHLORIDE (BEAKER) (test 96 meq/L 98-107 vxyn=887) CO2 (BEAKER) (test 23 meq/L 22-29 oeca=462) BLOOD UREA NITROGEN 4 mg/dL 7-21 (BEAKER) (test oktc=841) CREATININE (BEAKER) (test 0.64 mg/dL 0.57-1.25 swzp=702) GLUCOSE RANDOM (BEAKER) 105 mg/dL 70-105 (test qdao=492) CALCIUM (BEAKER) (test 9.1 mg/dL 8.4-10.2 bbxx=727) EGFR (BEAKER) (test 124 mL/min/1.73 sq m ESTIMATED GFR IS NOT lyec=5614) ACCURATE CREATININE CLEARANCE IN PREDICTING GLOMERULAR FILTRATION RATE. ESTIMATED GFR IS NOT APPLICABLE FOR DIALYSIS PATIENTS. CBC (HEMOGRAM ONLY)2017-07-19 05:20:00 Test Item Value Reference Range Comments WHITE BLOOD CELL COUNT (BEAKER) (test zogg=979) 11.1 K/ L 3.5-10.5 RED BLOOD CELL COUNT (BEAKER) (test ffiy=470) 3.72 M/ L 4.63-6.08 HEMOGLOBIN (BEAKER) (test yper=244) 11.7 GM/DL 13.7-17.5 HEMATOCRIT (BEAKER) (test opfd=904) 34.5 % 40.1-51.0 MEAN CORPUSCULAR VOLUME (BEAKER) (test jwbb=355) 92.7 fL 79.0-92.2 MEAN CORPUSCULAR HEMOGLOBIN (BEAKER) (test 31.5 pg 25.7-32.2 wyet=815) MEAN CORPUSCULAR HEMOGLOBIN CONC (BEAKER) (test 33.9 GM/DL 32.3-36.5 ezpn=942) RED CELL DISTRIBUTION WIDTH (BEAKER) (test 14.2 % 11.6-14.4 dntr=966) PLATELET COUNT (BEAKER) (test rnlm=138) 519 K/CU MM 150-450 MEAN PLATELET VOLUME (BEAKER) (test qptj=646) 9.1 fL 9.4-12.4 NUCLEATED RED BLOOD CELLS (BEAKER) (test 0 /100 WBC 0-0 mifj=242) POCT-GLUCOSE [id number] 22:11:00 Test Item Value Reference Range Comments POC-GLUCOSE METER (BEAKER) 98 mg/dL 70-110 TESTED AT [place] [id number] [facility] (test qhok=3961) [facility] [address] POCT-GLUCOSE [id number] 07:39:00 Test Item Value Reference Range Comments POC-GLUCOSE METER (BEAKER) 96 mg/dL 70-110 TESTED AT [address] (test auaw=3928) [facility] [address] [id number] 05:43:00 Test Item Value Reference Range Comments PHOSPHORUS (BEAKER) (test qiyc=586) 3.3 mg/dL 2.3-4.7 [id number] 05:43:00 Test Item Value Reference Range Comments MAGNESIUM (BEAKER) (test fkqy=020) 1.9 mg/dL 1.6-2.6 BASIC METABOLIC [id number] 05:43:00 Test Item Value Reference Range Comments SODIUM (BEAKER) (test 130 meq/L 136-145 uhfp=841) POTASSIUM (BEAKER) (test 4.1 meq/L 3.5-5.1 tujz=588) CHLORIDE (BEAKER) (test 98 meq/L 98-107 cwce=245) CO2 (BEAKER) (test 24 meq/L 22-29 xpio=650) BLOOD UREA NITROGEN 4 mg/dL 7-21 (BEAKER) (test ozdh=631) CREATININE (BEAKER) (test 0.60 mg/dL 0.57-1.25 usiw=593) GLUCOSE RANDOM (BEAKER) 100 mg/dL 70-105 (test myet=692) CALCIUM (BEAKER) (test 8.7 mg/dL 8.4-10.2 saxx=465) EGFR (BEAKER) (test 133 mL/min/1.73 sq m ESTIMATED GFR IS NOT wwqh=2381) ACCURATE CREATININE CLEARANCE IN PREDICTING GLOMERULAR FILTRATION RATE. ESTIMATED GFR IS NOT APPLICABLE FOR DIALYSIS PATIENTS. CBC (HEMOGRAM ONLY)2017-07-18 05:15:00 Test Item Value Reference Range Comments WHITE BLOOD CELL COUNT (BEAKER) (test eepu=936) 11.9 K/ L 3.5-10.5 RED BLOOD CELL COUNT (BEAKER) (test etgi=174) 3.72 M/ L 4.63-6.08 HEMOGLOBIN (BEAKER) (test owzw=533) 11.8 GM/DL 13.7-17.5 HEMATOCRIT (BEAKER) (test smxe=617) 34.4 % 40.1-51.0 MEAN CORPUSCULAR VOLUME (BEAKER) (test lnzs=621) 92.5 fL 79.0-92.2 MEAN CORPUSCULAR HEMOGLOBIN (BEAKER) (test 31.7 pg 25.7-32.2 qufv=905) MEAN CORPUSCULAR HEMOGLOBIN CONC (BEAKER) (test 34.3 GM/DL 32.3-36.5 maim=039) RED CELL DISTRIBUTION WIDTH (BEAKER) (test 14.6 % 11.6-14.4 mtto=021) PLATELET COUNT (BEAKER) (test zhhh=014) 519 K/CU MM 150-450 MEAN PLATELET VOLUME (BEAKER) (test vvhh=332) 9.2 fL 9.4-12.4 NUCLEATED RED BLOOD CELLS (BEAKER) (test 0 /100 WBC 0-0 kopk=743) POCT-GLUCOSE [id number] 20:53:00 Test Item Value Reference Range Comments POC-GLUCOSE METER (BEAKER) 113 mg/dL 70-110 TESTED AT [address] (test dzst=6986) [facility] [address] [facility], MULTI, PHARM, [id number] 20:10:00FINAL REPORT PROCEDURE: Rest/Stress MYOCARDIAL PERFUSION SPECT with regadenoson\\XA9\\ CPT CODE: 29449 INDICATION: Preoperative evaluation, PAD HISTORY:Cardiac risk factors: Hypertension, hyperlipidemia, tobacco use. Other cardiovascular history: No reported CAD. Current cardiovascular-related medications: Aspirin, amiodarone, atorvastatin, metoprolol, heparin. PROTOCOL: 10.1 mCi of Tc-99m sestamibi was injected iv at rest, and SPECT (tomographic) images were obtained. Also, 30.6 mCi of Tc-99m sestamibi was injected iv at expected peak pharmacologiceffect, and gated SPECT images were obtained. PRELIMINARY STRESS TEST DATA FROM NONINVASIVE CARDIOLOGY : Pharmacologic stress was by 10-second iv infusion of 0.4 mg of regadenoson. Radiotracer was injected 30 seconds after start of stress. Heart rate was 68 beats/min at rest and 82 beats/min (54 % ofMPHR) at tracer injection. BP was 153 /55 mmHg at rest and 144/48 mmHg at [...] wall motion and thickening. QGS LVEF is >70% . IMPRESSION: 1. Normal study. 2. Appropriate pharmacologic stress. 3. Normal myocardial perfusion. 4. Normal resting LV function. 5. Normal extracardiac tracer distribution. 6. No previous [facility] study for comparison. Signed: Jeanie Carolina MDReport Verified Date/Time: 07/17/2017 20:10:02 Reading Location: [address] Reading Room POCT-GLUCOSE [id number] 14: 53:00 Test Item Value Reference Range Comments POC-GLUCOSE METER (BEAKER) 93 mg/dL 70-110 TESTED AT [address] (test doqy=0491) [facility] [address] POCT-GLUCOSE [id number] 08:04:00 Test Item Value Reference Range Comments POC-GLUCOSE METER (BEAKER) 109 mg/dL 70-110 TESTED AT [address] (test sjff=3273) [facility] [address] [id number] 04:51:00 Test Item Value Reference Range Comments PHOSPHORUS (BEAKER) (test oyeq=660) 3.3 mg/dL 2.3-4.7 [id number] 04:51:00 Test Item Value Reference Range Comments MAGNESIUM (BEAKER) (test tnan=902) 1.8 mg/dL 1.6-2.6 BASIC METABOLIC [id number] 04:51:00 Test Item Value Reference Range Comments SODIUM (BEAKER) (test 131 meq/L 136-145 bsma=134) POTASSIUM (BEAKER) (test 3.8 meq/L 3.5-5.1 zmgz=498) CHLORIDE (BEAKER) (test 98 meq/L 98-107 ohah=569) CO2 (BEAKER) (test 24 meq/L 22-29 zsnv=464) BLOOD UREA NITROGEN 5 mg/dL 7-21 (BEAKER) (test vzyk=259) CREATININE (BEAKER) (test 0.59 mg/dL 0.57-1.25 sbvg=905) GLUCOSE RANDOM (BEAKER) 98 mg/dL 70-105 (test ddsn=162) CALCIUM (BEAKER) (test 8.8 mg/dL 8.4-10.2 lfwy=940) EGFR (BEAKER) (test 136 mL/min/1.73 sq m ESTIMATED GFR IS NOT iyub=8249) ACCURATE CREATININE CLEARANCE IN PREDICTING GLOMERULAR FILTRATION RATE. ESTIMATED GFR IS NOT APPLICABLE FOR DIALYSIS PATIENTS. CBC (HEMOGRAM ONLY)2017-07-17 04:33:00 Test Item Value Reference Range Comments WHITE BLOOD CELL COUNT (BEAKER) (test nzze=416) 11.4 K/ L 3.5-10.5 RED BLOOD CELL COUNT (BEAKER) (test vggl=671) 3.61 M/ L 4.63-6.08 HEMOGLOBIN (BEAKER) (test bneu=401) 11.3 GM/DL 13.7-17.5 HEMATOCRIT (BEAKER) (test gqeg=638) 33.2 % 40.1-51.0 MEAN CORPUSCULAR VOLUME (BEAKER) (test rzbz=103) 92.0 fL 79.0-92.2 MEAN CORPUSCULAR HEMOGLOBIN (BEAKER) (test 31.3 pg 25.7-32.2 gojx=780) MEAN CORPUSCULAR HEMOGLOBIN CONC (BEAKER) (test 34.0 GM/DL 32.3-36.5 xhgk=010) RED CELL DISTRIBUTION WIDTH (BEAKER) (test 14.7 % 11.6-14.4 ebbb=107) PLATELET COUNT (BEAKER) (test gyvc=887) 498 K/CU MM 150-450 MEAN PLATELET VOLUME (BEAKER) (test ygur=147) 9.2 fL 9.4-12.4 NUCLEATED RED BLOOD CELLS (BEAKER) (test 0 /100 WBC 0-0 pngm=951) POCT-GLUCOSE [id number] 21:21:00 Test Item Value Reference Range Comments POC-GLUCOSE METER (BEAKER) 120 mg/dL 70-110 TESTED AT [facility] [address] [facility] (test ddys=3475) [facility] [id number] BASIC METABOLIC [id number] 19:38:00 Test Item Value Reference Range Comments SODIUM (BEAKER) (test 131 meq/L 136-145 zqki=548) POTASSIUM (BEAKER) (test 4.1 meq/L 3.5-5.1 lsjx=134) CHLORIDE (BEAKER) (test 98 meq/L 98-107 sfbc=994) CO2 (BEAKER) (test 27 meq/L 22-29 qahs=269) BLOOD UREA NITROGEN 6 mg/dL 7-21 (BEAKER) (test mlpy=657) CREATININE (BEAKER) (test 0.61 mg/dL 0.57-1.25 imgt=827) GLUCOSE RANDOM (BEAKER) 98 mg/dL 70-105 (test ulqe=572) CALCIUM (BEAKER) (test 8.9 mg/dL 8.4-10.2 zdio=503) EGFR (BEAKER) (test 131 mL/min/1.73 sq m ESTIMATED GFR IS NOT dbay=4200) ACCURATE CREATININE CLEARANCE IN PREDICTING GLOMERULAR FILTRATION RATE. ESTIMATED GFR IS NOT APPLICABLE FOR DIALYSIS PATIENTS. [id number] 19:25:00 Test Item Value Reference Range Comments PARTIAL THROMBOPLASTIN TIME (BEAKER) (test 35.0 seconds 22.5-36.0 xpaw=353) CBC (HEMOGRAM ONLY)2017-07-16 19:13:00 Test Item Value Reference Range Comments WHITE BLOOD CELL COUNT (BEAKER) (test xkzq=866) 12.7 K/ L 3.5-10.5 RED BLOOD CELL COUNT (BEAKER) (test ojlv=716) 3.65 M/ L 4.63-6.08 HEMOGLOBIN (BEAKER) (test namy=760) 11.5 GM/DL 13.7-17.5 HEMATOCRIT (BEAKER) (test chwp=707) 33.5 % 40.1-51.0 MEAN CORPUSCULAR VOLUME (BEAKER) (test pofx=591) 91.8 fL 79.0-92.2 MEAN CORPUSCULAR HEMOGLOBIN (BEAKER) (test 31.5 pg 25.7-32.2 rgue=657) MEAN CORPUSCULAR HEMOGLOBIN CONC (BEAKER) (test 34.3 GM/DL 32.3-36.5 zhep=451) RED CELL DISTRIBUTION WIDTH (BEAKER) (test 14.8 % 11.6-14.4 ilgh=798) PLATELET COUNT (BEAKER) (test xaot=748) 495 K/CU MM 150-450 MEAN PLATELET VOLUME (BEAKER) (test hozq=313) 9.0 fL 9.4-12.4 NUCLEATED RED BLOOD CELLS (BEAKER) (test 0 /100 WBC 0-0 jjlz=703) POCT-GLUCOSE [id number] 07:50:00 Test Item Value Reference Range Comments POC-GLUCOSE METER (BEAKER) 109 mg/dL 70-110 TESTED AT [facility] [address] [facility] (test uwmb=6590) [facility] [address] [id number] 07:16:00 Test Item Value Reference Range Comments PARTIAL THROMBOPLASTIN TIME (BEAKER) (test 101.3 seconds 22.5-36.0 aoea=933) [id number] 05:32:00 Test Item Value Reference Range Comments MAGNESIUM (BEAKER) (test 1.8 mg/dL 1.6-2.6 Specimen slightly hemolyzed bwlj=309) [id number] 05:32:00 Test Item Value Reference Range Comments PHOSPHORUS (BEAKER) (test 3.7 mg/dL 2.3-4.7 Specimen slightly hemolyzed fysj=160) BASIC METABOLIC [id number] 05:32:00 Test Item Value Reference Range Comments SODIUM (BEAKER) (test 132 meq/L 136-145 niss=649) POTASSIUM (BEAKER) (test 3.9 meq/L 3.5-5.1 Specimen slightly ruve=428) hemolyzed CHLORIDE (BEAKER) (test 99 meq/L 98-107 jjcg=922) CO2 (BEAKER) (test 25 meq/L 22-29 varl=081) BLOOD UREA NITROGEN 4 mg/dL 7-21 (BEAKER) (test bswz=161) CREATININE (BEAKER) (test 0.60 mg/dL 0.57-1.25 Specimen slightly mhvp=881) hemolyzed GLUCOSE RANDOM (BEAKER) 102 mg/dL 70-105 (test drxa=675) CALCIUM (BEAKER) (test 8.8 mg/dL 8.4-10.2 dnzr=897) EGFR (BEAKER) (test 133 mL/min/1.73 sq m ESTIMATED GFR IS NOT oeel=5341) ACCURATE CREATININE CLEARANCE IN PREDICTING GLOMERULAR FILTRATION RATE. ESTIMATED GFR IS NOT APPLICABLE FOR DIALYSIS PATIENTS. CBC (HEMOGRAM ONLY)2017-07-16 05:14:00 Test Item Value Reference Range Comments WHITE BLOOD CELL COUNT (BEAKER) (test druv=584) 10.4 K/ L 3.5-10.5 RED BLOOD CELL COUNT (BEAKER) (test ngyn=426) 3.29 M/ L 4.63-6.08 HEMOGLOBIN (BEAKER) (test blif=907) 10.8 GM/DL 13.7-17.5 HEMATOCRIT (BEAKER) (test yjrr=123) 30.7 % 40.1-51.0 MEAN CORPUSCULAR VOLUME (BEAKER) (test ejoq=868) 93.3 fL 79.0-92.2 MEAN CORPUSCULAR HEMOGLOBIN (BEAKER) (test 32.8 pg 25.7-32.2 kykf=000) MEAN CORPUSCULAR HEMOGLOBIN CONC (BEAKER) (test 35.2 GM/DL 32.3-36.5 cfyh=157) RED CELL DISTRIBUTION WIDTH (BEAKER) (test 13.2 % 11.6-14.4 yfes=926) PLATELET COUNT (BEAKER) (test mbdz=347) 529 K/CU MM 150-450 MEAN PLATELET VOLUME (BEAKER) (test mbwo=485) 9.4 fL 9.4-12.4 NUCLEATED RED BLOOD CELLS (BEAKER) (test 0 /100 WBC 0-0 tjyk=797) POCT-GLUCOSE [id number] 20:54:00 Test Item Value Reference Range Comments POC-GLUCOSE METER (BEAKER) 114 mg/dL 70-110 TESTED AT [address] (test zlsf=2630) [facility] [address] POCT-GLUCOSE [id number] 17:52:00 Test Item Value Reference Range Comments POC-GLUCOSE METER (BEAKER) 113 mg/dL 70-110 TESTED AT [address] (test cuuc=4933) [facility] [address] POCT-GLUCOSE [id number] 17:50:00 Test Item Value Reference Range Comments POC-GLUCOSE METER (BEAKER) 136 mg/dL 70-110 TESTED AT [address] (test dvnj=3085) [facility] [address] [id number] 14:38:00 Test Item Value Reference Range Comments PARTIAL THROMBOPLASTIN TIME (BEAKER) (test 90.2 seconds 22.5-36.0 zroc=625) [id number] 09:03:00 Test Item Value Reference Range Comments PARTIAL THROMBOPLASTIN TIME (BEAKER) (test 77.5 seconds 22.5-36.0 ctvp=092) POCT-GLUCOSE [id number] 08:06:00 Test Item Value Reference Range Comments POC-GLUCOSE METER (BEAKER) 89 mg/dL 70-110 TESTED AT [address] (test poxh=9371) [facility] [address] BASIC METABOLIC [id number] 01:59:00 Test Item Value Reference Range Comments SODIUM (BEAKER) (test 133 meq/L 136-145 yjtb=701) POTASSIUM (BEAKER) (test 3.9 meq/L 3.5-5.1 trga=958) CHLORIDE (BEAKER) (test 99 meq/L 98-107 oahm=436) CO2 (BEAKER) (test 23 meq/L 22-29 cvvq=706) BLOOD UREA NITROGEN 4 mg/dL 7-21 (BEAKER) (test hqeb=939) CREATININE (BEAKER) (test 0.59 mg/dL 0.57-1.25 fyjz=580) GLUCOSE RANDOM (BEAKER) 94 mg/dL 70-105 (test rdwa=071) CALCIUM (BEAKER) (test 8.8 mg/dL 8.4-10.2 kfvj=470) EGFR (BEAKER) (test 136 mL/min/1.73 sq m ESTIMATED GFR IS NOT rvuu=5598) ACCURATE CREATININE CLEARANCE IN PREDICTING GLOMERULAR FILTRATION RATE. ESTIMATED GFR IS NOT APPLICABLE FOR DIALYSIS PATIENTS. [id number] 01:58:00 Test Item Value Reference Range Comments PHOSPHORUS (BEAKER) (test cmmo=888) 3.7 mg/dL 2.3-4.7 [id number] 01:58:00 Test Item Value Reference Range Comments MAGNESIUM (BEAKER) (test gere=061) 1.8 mg/dL 1.6-2.6 [id number] 01:54:00 Test Item Value Reference Range Comments PARTIAL THROMBOPLASTIN TIME (BEAKER) (test 58.6 seconds 22.5-36.0 xgai=543) CBC (HEMOGRAM ONLY)2017-07-15 01:46:00 Test Item Value Reference Range Comments WHITE BLOOD CELL COUNT (BEAKER) (test kuxs=256) 11.0 K/ L 3.5-10.5 RED BLOOD CELL COUNT (BEAKER) (test pujg=258) 3.49 M/ L 4.63-6.08 HEMOGLOBIN (BEAKER) (test qaej=452) 11.5 GM/DL 13.7-17.5 HEMATOCRIT (BEAKER) (test iqvq=919) 33.1 % 40.1-51.0 MEAN CORPUSCULAR VOLUME (BEAKER) (test swvp=047) 94.8 fL 79.0-92.2 MEAN CORPUSCULAR HEMOGLOBIN (BEAKER) (test 33.0 pg 25.7-32.2 ipcx=078) MEAN CORPUSCULAR HEMOGLOBIN CONC (BEAKER) (test 34.7 GM/DL 32.3-36.5 jauf=549) RED CELL DISTRIBUTION WIDTH (BEAKER) (test 13.2 % 11.6-14.4 zxwx=246) PLATELET COUNT (BEAKER) (test pmbf=829) 495 K/CU MM 150-450 MEAN PLATELET VOLUME (BEAKER) (test fmdj=700) 9.1 fL 9.4-12.4 NUCLEATED RED BLOOD CELLS (BEAKER) (test 0 /100 WBC 0-0 mdem=359) [id number] 23:30:00 Test Item Value Reference Range Comments PARTIAL THROMBOPLASTIN TIME (BEAKER) (test 116.8 seconds 22.5-36.0 bqxc=613) POCT-GLUCOSE [id number] 21:26:00 Test Item Value Reference Range Comments POC-GLUCOSE METER (BEAKER) 101 mg/dL 70-110 TESTED AT [facility] [address] [facility] (test evid=8349) [facility] [address] POCT-GLUCOSE [id number] 18:14:00 Test Item Value Reference Range Comments POC-GLUCOSE METER (BEAKER) 82 mg/dL 70-110 TESTED AT [address] (test cpys=2439) [facility] [address] [id number] 15:43:00 Test Item Value Reference Range Comments PARTIAL THROMBOPLASTIN TIME (BEAKER) (test 65.7 seconds 22.5-36.0 ackb=949) POCT-GLUCOSE [id number] 12:44:00 Test Item Value Reference Range Comments POC-GLUCOSE METER (BEAKER) 121 mg/dL 70-110 TESTED AT [address] (test jzux=5177) [place] [id number] POCT-GLUCOSE [id number] 08:26:00 Test Item Value Reference Range Comments POC-GLUCOSE METER (BEAKER) 99 mg/dL 70-110 TESTED AT [address] (test qerq=6112) [facility] [address] [id number] 07:58:00 Test Item Value Reference Range Comments PHOSPHORUS (BEAKER) (test owpw=287) 2.4 mg/dL 2.3-4.7 [id number] 07:58:00 Test Item Value Reference Range Comments MAGNESIUM (BEAKER) (test jjdq=835) 1.6 mg/dL 1.6-2.6 BASIC METABOLIC [id number] 07:58:00 Test Item Value Reference Range Comments SODIUM (BEAKER) (test 131 meq/L 136-145 cuza=039) POTASSIUM (BEAKER) (test 4.8 meq/L 3.5-5.1 rzib=118) CHLORIDE (BEAKER) (test 102 meq/L 98-107 xztw=218) CO2 (BEAKER) (test 22 meq/L 22-29 toji=288) BLOOD UREA NITROGEN 3 mg/dL 7-21 (BEAKER) (test bnyb=852) CREATININE (BEAKER) (test 0.58 mg/dL 0.57-1.25 tmgx=063) GLUCOSE RANDOM (BEAKER) 102 mg/dL 70-105 (test nefq=177) CALCIUM (BEAKER) (test 8.8 mg/dL 8.4-10.2 nkey=066) EGFR (BEAKER) (test 139 mL/min/1.73 sq m ESTIMATED GFR IS NOT viuo=9981) ACCURATE CREATININE CLEARANCE IN PREDICTING GLOMERULAR FILTRATION RATE. ESTIMATED GFR IS NOT APPLICABLE FOR DIALYSIS PATIENTS. [id number] 07:22:00 Test Item Value Reference Range Comments PARTIAL THROMBOPLASTIN TIME (BEAKER) (test 64.2 seconds 22.5-36.0 hlej=381) CBC (HEMOGRAM ONLY)2017-07-14 07:07:00 Test Item Value Reference Range Comments WHITE BLOOD CELL COUNT (BEAKER) (test agcw=127) 10.5 K/ L 3.5-10.5 RED BLOOD CELL COUNT (BEAKER) (test bdlq=520) 3.56 M/ L 4.63-6.08 HEMOGLOBIN (BEAKER) (test vvcj=149) 11.8 GM/DL 13.7-17.5 HEMATOCRIT (BEAKER) (test hnce=944) 34.6 % 40.1-51.0 MEAN CORPUSCULAR VOLUME (BEAKER) (test idfo=492) 97.2 fL 79.0-92.2 MEAN CORPUSCULAR HEMOGLOBIN (BEAKER) (test 33.1 pg 25.7-32.2 iuok=529) MEAN CORPUSCULAR HEMOGLOBIN CONC (BEAKER) (test 34.1 GM/DL 32.3-36.5 xhdx=304) RED CELL DISTRIBUTION WIDTH (BEAKER) (test 13.2 % 11.6-14.4 mdhj=730) PLATELET COUNT (BEAKER) (test vmac=222) 458 K/CU MM 150-450 MEAN PLATELET VOLUME (BEAKER) (test khyr=492) 9.2 fL 9.4-12.4 NUCLEATED RED BLOOD CELLS (BEAKER) (test 0 /100 WBC 0-0 miqs=695) [id number] 22:44:00 Test Item Value Reference Range Comments PARTIAL THROMBOPLASTIN TIME (BEAKER) (test 47.9 seconds 22.5-36.0 xthw=874) POCT-GLUCOSE [id number] 21:32:00 Test Item Value Reference Range Comments POC-GLUCOSE METER (BEAKER) 110 mg/dL 70-110 TESTED AT [address] (test nzlo=8673) [facility] [address] POCT-GLUCOSE [id number] 18:25:00 Test Item Value Reference Range Comments POC-GLUCOSE METER (BEAKER) 109 mg/dL 70-110 TESTED AT [address] (test wyat=3465) [facility] [address] [id number] 14:09:00 Test Item Value Reference Range Comments PARTIAL THROMBOPLASTIN TIME (BEAKER) (test 42.7 seconds 22.5-36.0 sqri=500) [id number] 10:34:00 Test Item Value Reference Range Comments PARTIAL THROMBOPLASTIN TIME (BEAKER) (test 124.2 seconds 22.5-36.0 ktoq=196) [id number] 01:47:00 Test Item Value Reference Range Comments PHOSPHORUS (BEAKER) (test rfnq=933) 2.5 mg/dL 2.3-4.7 [id number] 01:47:00 Test Item Value Reference Range Comments MAGNESIUM (BEAKER) (test lviy=888) 1.9 mg/dL 1.6-2.6 BASIC METABOLIC [id number] 01:47:00 Test Item Value Reference Range Comments SODIUM (BEAKER) (test 133 meq/L 136-145 sagm=076) POTASSIUM (BEAKER) (test 3.5 meq/L 3.5-5.1 jlbv=340) CHLORIDE (BEAKER) (test 101 meq/L 98-107 mran=370) CO2 (BEAKER) (test 26 meq/L 22-29 jsub=758) BLOOD UREA NITROGEN 4 mg/dL 7-21 (BEAKER) (test hysv=946) CREATININE (BEAKER) (test 0.53 mg/dL 0.57-1.25 muwr=402) GLUCOSE RANDOM (BEAKER) 125 mg/dL 70-105 (test umev=840) CALCIUM (BEAKER) (test 8.2 mg/dL 8.4-10.2 hyaf=124) EGFR (BEAKER) (test 154 mL/min/1.73 sq m ESTIMATED GFR IS NOT dizn=3494) ACCURATE CREATININE CLEARANCE IN PREDICTING GLOMERULAR FILTRATION RATE. ESTIMATED GFR IS NOT APPLICABLE FOR DIALYSIS PATIENTS. CBC (HEMOGRAM ONLY)2017-07-13 01:31:00 Test Item Value Reference Range Comments WHITE BLOOD CELL COUNT (BEAKER) (test osbn=187) 7.9 K/ L 3.5-10.5 RED BLOOD CELL COUNT (BEAKER) (test sgtv=958) 3.16 M/ L 4.63-6.08 HEMOGLOBIN (BEAKER) (test gwsn=146) 10.4 GM/DL 13.7-17.5 HEMATOCRIT (BEAKER) (test quol=734) 30.1 % 40.1-51.0 MEAN CORPUSCULAR VOLUME (BEAKER) (test gubn=653) 95.3 fL 79.0-92.2 MEAN CORPUSCULAR HEMOGLOBIN (BEAKER) (test 32.9 pg 25.7-32.2 tpxz=138) MEAN CORPUSCULAR HEMOGLOBIN CONC (BEAKER) (test 34.6 GM/DL 32.3-36.5 xnaw=162) RED CELL DISTRIBUTION WIDTH (BEAKER) (test 13.0 % 11.6-14.4 lizz=777) PLATELET COUNT (BEAKER) (test qnmk=434) 417 K/CU MM 150-450 MEAN PLATELET VOLUME (BEAKER) (test rzpe=097) 8.9 fL 9.4-12.4 NUCLEATED RED BLOOD CELLS (BEAKER) (test 0 /100 WBC 0-0 zeet=836) CREATINE KINASE (CK), TOTAL AND [id number] 23:45:00 Test Item Value Reference Range Comments CREATINE KINASE TOTAL (BEAKER) (test svvc=662) 224 U/L 29-200 CREATINE KINASE-MB (BEAKER) (test lpwt=877) 2.8 ng/mL 0.0-6.6 CREATINE KINASE-MB INDEX (BEAKER) (test vjwj=743) 1.3 % CK-MB Reference Range:<6.7 Normal6.7-10.0 Borderline>10.0 AbnormalTROPONIN [id number] 23:45:00 Test Item Value Reference Range Comments TROPONIN I (BEAKER) (test lzbz=455) 0.03 ng/mL 0.00-0.03 Troponin I (TnI) levels must be interpreted [...] failure, acidosis, acute neurological disease, and persistent tachyarrhythmia.[id number] 23:39:00 Test Item Value Reference Range Comments MAGNESIUM (BEAKER) (test gcdj=378) 1.5 mg/dL 1.6-2.6 BASIC METABOLIC [id number] 23:39:00 Test Item Value Reference Range Comments SODIUM (BEAKER) (test 135 meq/L 136-145 xxpm=699) POTASSIUM (BEAKER) (test 3.7 meq/L 3.5-5.1 fvxc=579) CHLORIDE (BEAKER) (test 100 meq/L 98-107 wdsf=546) CO2 (BEAKER) (test 27 meq/L 22-29 mnjn=535) BLOOD UREA NITROGEN 4 mg/dL 7-21 (BEAKER) (test pzxh=218) CREATININE (BEAKER) (test 0.54 mg/dL 0.57-1.25 cioi=280) GLUCOSE RANDOM (BEAKER) 117 mg/dL 70-105 (test hgmu=851) CALCIUM (BEAKER) (test 8.3 mg/dL 8.4-10.2 pgia=779) EGFR (BEAKER) (test 150 mL/min/1.73 sq m ESTIMATED GFR IS NOT rjem=6000) ACCURATE CREATININE CLEARANCE IN PREDICTING GLOMERULAR FILTRATION RATE. ESTIMATED GFR IS NOT APPLICABLE FOR DIALYSIS PATIENTS. POCT-GLUCOSE [id number] 17:55:00 Test Item Value Reference Range Comments POC-GLUCOSE METER (BEAKER) 93 mg/dL 70-110 TESTED AT [address] (test yvdh=0171) [place] [address] POCT-GLUCOSE [id number] 17:24:00 Test Item Value Reference Range Comments POC-GLUCOSE METER (BEAKER) 101 mg/dL 70-110 TESTED AT [address] (test yaid=4066) [place] [id number] POCT-GLUCOSE [id number] 06:58:00 Test Item Value Reference Range Comments POC-GLUCOSE METER (BEAKER) 116 mg/dL 70-110 TESTED AT [address] (test nstc=1195) [place] [address] [id number] 06:07:00 Test Item Value Reference Range Comments PHOSPHORUS (BEAKER) (test aovn=373) 2.3 mg/dL 2.3-4.7 [id number] 06:07:00 Test Item Value Reference Range Comments MAGNESIUM (BEAKER) (test ybea=179) 1.7 mg/dL 1.6-2.6 BASIC METABOLIC [id number] 06:07:00 Test Item Value Reference Range Comments SODIUM (BEAKER) (test 134 meq/L 136-145 wtmf=643) POTASSIUM (BEAKER) (test 3.3 meq/L 3.5-5.1 qdpa=435) CHLORIDE (BEAKER) (test 98 meq/L 98-107 vkvz=577) CO2 (BEAKER) (test 28 meq/L 22-29 slyf=018) BLOOD UREA NITROGEN 4 mg/dL 7-21 (BEAKER) (test mqtw=491) CREATININE (BEAKER) (test 0.57 mg/dL 0.57-1.25 iuch=577) GLUCOSE RANDOM (BEAKER) 94 mg/dL 70-105 (test tosl=263) CALCIUM (BEAKER) (test 8.6 mg/dL 8.4-10.2 hkxz=185) EGFR (BEAKER) (test 141 mL/min/1.73 sq m ESTIMATED GFR IS NOT kmim=5836) ACCURATE CREATININE CLEARANCE IN PREDICTING GLOMERULAR FILTRATION RATE. ESTIMATED GFR IS NOT APPLICABLE FOR DIALYSIS PATIENTS. [id number] 05:55:00 Test Item Value Reference Range Comments PARTIAL THROMBOPLASTIN TIME (BEAKER) (test 81.2 seconds 22.5-36.0 qbjv=235) CBC (HEMOGRAM ONLY)2017-07-12 05:52:00 Test Item Value Reference Range Comments WHITE BLOOD CELL COUNT (BEAKER) (test eopj=951) 10.9 K/ L 3.5-10.5 RED BLOOD CELL COUNT (BEAKER) (test rlzq=115) 3.63 M/ L 4.63-6.08 HEMOGLOBIN (BEAKER) (test sdce=668) 11.8 GM/DL 13.7-17.5 HEMATOCRIT (BEAKER) (test qcbr=293) 35.3 % 40.1-51.0 MEAN CORPUSCULAR VOLUME (BEAKER) (test rmxm=751) 97.2 fL 79.0-92.2 MEAN CORPUSCULAR HEMOGLOBIN (BEAKER) (test 32.5 pg 25.7-32.2 ogax=019) MEAN CORPUSCULAR HEMOGLOBIN CONC (BEAKER) (test 33.4 GM/DL 32.3-36.5 ccca=119) RED CELL DISTRIBUTION WIDTH (BEAKER) (test 13.2 % 11.6-14.4 kdxb=094) PLATELET COUNT (BEAKER) (test kbuc=161) 406 K/CU MM 150-450 MEAN PLATELET VOLUME (BEAKER) (test csxt=615) 9.5 fL 9.4-12.4 NUCLEATED RED BLOOD CELLS (BEAKER) (test 0 /100 WBC 0-0 kiub=175) POCT-GLUCOSE [id number] 23:45:00 Test Item Value Reference Range Comments POC-GLUCOSE METER (BEAKER) 110 mg/dL 70-110 TESTED AT [address] (test dvgf=6477) [place] [address] [id number] 21:27:00 Test Item Value Reference Range Comments PARTIAL THROMBOPLASTIN TIME (BEAKER) (test 75.7 seconds 22.5-36.0 auxg=541) POCT-GLUCOSE [id number] 17:45:00 Test Item Value Reference Range Comments POC-GLUCOSE METER (BEAKER) 117 mg/dL 70-110 TESTED AT [address] (test hwij=6032) [place] [address] [id number] 14:32:00 Test Item Value Reference Range Comments PARTIAL THROMBOPLASTIN TIME (BEAKER) (test 59.1 seconds 22.5-36.0 jrfz=012) POCT-GLUCOSE [id number] 12:34:00 Test Item Value Reference Range Comments POC-GLUCOSE METER (BEAKER) 104 mg/dL 70-110 TESTED AT [address] (test yvmv=2467) [place] [address] [id number] 07:53:00 Test Item Value Reference Range Comments PHOSPHORUS (BEAKER) (test arob=403) 2.5 mg/dL 2.3-4.7 [id number] 07:53:00 Test Item Value Reference Range Comments MAGNESIUM (BEAKER) (test mqhy=564) 1.7 mg/dL 1.6-2.6 BASIC METABOLIC [id number] 07:53:00 Test Item Value Reference Range Comments SODIUM (BEAKER) (test 134 meq/L 136-145 uuod=994) POTASSIUM (BEAKER) (test 3.6 meq/L 3.5-5.1 zqtv=705) CHLORIDE (BEAKER) (test 99 meq/L 98-107 niit=157) CO2 (BEAKER) (test 26 meq/L 22-29 crzb=193) BLOOD UREA NITROGEN 3 mg/dL 7-21 (BEAKER) (test hemf=976) CREATININE (BEAKER) (test 0.57 mg/dL 0.57-1.25 upxd=737) GLUCOSE RANDOM (BEAKER) 98 mg/dL 70-105 (test xgml=746) CALCIUM (BEAKER) (test 8.4 mg/dL 8.4-10.2 pglw=169) EGFR (BEAKER) (test 141 mL/min/1.73 sq m ESTIMATED GFR IS NOT kbqw=2628) ACCURATE CREATININE CLEARANCE IN PREDICTING GLOMERULAR FILTRATION RATE. ESTIMATED GFR IS NOT APPLICABLE FOR DIALYSIS PATIENTS. [id number] 07:31:00 Test Item Value Reference Range Comments PARTIAL THROMBOPLASTIN TIME (BEAKER) (test 65.4 seconds 22.5-36.0 xwnu=718) CBC (HEMOGRAM ONLY)2017-07-11 07:17:00 Test Item Value Reference Range Comments WHITE BLOOD CELL COUNT (BEAKER) (test murr=444) 10.9 K/ L 3.5-10.5 RED BLOOD CELL COUNT (BEAKER) (test mbws=833) 3.66 M/ L 4.63-6.08 HEMOGLOBIN (BEAKER) (test qhcd=910) 12.0 GM/DL 13.7-17.5 HEMATOCRIT (BEAKER) (test jdtv=489) 36.3 % 40.1-51.0 MEAN CORPUSCULAR VOLUME (BEAKER) (test inth=958) 99.2 fL 79.0-92.2 MEAN CORPUSCULAR HEMOGLOBIN (BEAKER) (test 32.8 pg 25.7-32.2 qpqh=911) MEAN CORPUSCULAR HEMOGLOBIN CONC (BEAKER) (test 33.1 GM/DL 32.3-36.5 odmf=723) RED CELL DISTRIBUTION WIDTH (BEAKER) (test 13.4 % 11.6-14.4 pitg=724) PLATELET COUNT (BEAKER) (test nkdb=892) 373 K/CU MM 150-450 MEAN PLATELET VOLUME (BEAKER) (test mqao=652) 9.3 fL 9.4-12.4 NUCLEATED RED BLOOD CELLS (BEAKER) (test 0 /100 WBC 0-0 vtkg=874) [id number] 00:35:00 Test Item Value Reference Range Comments PARTIAL THROMBOPLASTIN TIME (BEAKER) (test 112.1 seconds 22.5-36.0 ohqi=049) [id number] 19:22:00 Test Item Value Reference Range Comments PARTIAL THROMBOPLASTIN TIME (BEAKER) (test 62.3 seconds 22.5-36.0 wwfc=803) POCT-GLUCOSE [id number] 18:01:00 Test Item Value Reference Range Comments POC-GLUCOSE METER (BEAKER) 101 mg/dL 70-110 TESTED AT [address] (test nrfo=3433) [place] [id number] 17:27:00 Test Item Value Reference Range Comments PARTIAL THROMBOPLASTIN TIME (BEAKER) (test 132.8 seconds 22.5-36.0 psrt=531) POCT-GLUCOSE [id number] 11:28:00 Test Item Value Reference Range Comments POC-GLUCOSE METER (BEAKER) 105 mg/dL 70-110 TESTED AT [address] (test xazp=0108) [place] [id number] 09:30:00 Test Item Value Reference Range Comments PARTIAL THROMBOPLASTIN TIME (BEAKER) (test 47.3 seconds 22.5-36.0 svgb=036) Prior to initiating [id number] 06:09:00 Test Item Value Reference Range Comments PHOSPHORUS (BEAKER) (test xpkg=481) 1.8 mg/dL 2.3-4.7 [id number] 06:09:00 Test Item Value Reference Range Comments MAGNESIUM (BEAKER) (test zcyi=857) 1.9 mg/dL 1.6-2.6 BASIC METABOLIC [id number] 06:09:00 Test Item Value Reference Range Comments SODIUM (BEAKER) (test 133 meq/L 136-145 kmvp=805) POTASSIUM (BEAKER) (test 3.9 meq/L 3.5-5.1 xtrk=055) CHLORIDE (BEAKER) (test 103 meq/L 98-107 bsrh=597) CO2 (BEAKER) (test 22 meq/L 22-29 fzel=300) BLOOD UREA NITROGEN 4 mg/dL 7-21 (BEAKER) (test bidz=279) CREATININE (BEAKER) (test 0.57 mg/dL 0.57-1.25 vxzd=820) GLUCOSE RANDOM (BEAKER) 98 mg/dL 70-105 (test faba=976) CALCIUM (BEAKER) (test 8.0 mg/dL 8.4-10.2 zaud=712) EGFR (BEAKER) (test 141 mL/min/1.73 sq m ESTIMATED GFR IS NOT aeio=9024) ACCURATE CREATININE CLEARANCE IN PREDICTING GLOMERULAR FILTRATION RATE. ESTIMATED GFR IS NOT APPLICABLE FOR DIALYSIS PATIENTS. CBC (HEMOGRAM ONLY)2017-07-10 04:55:00 Test Item Value Reference Range Comments WHITE BLOOD CELL COUNT (BEAKER) (test duhd=797) 11.8 K/ L 3.5-10.5 RED BLOOD CELL COUNT (BEAKER) (test hctk=959) 3.18 M/ L 4.63-6.08 HEMOGLOBIN (BEAKER) (test uxlf=778) 10.5 GM/DL 13.7-17.5 HEMATOCRIT (BEAKER) (test gmbo=374) 30.3 % 40.1-51.0 MEAN CORPUSCULAR VOLUME (BEAKER) (test zobm=400) 95.3 fL 79.0-92.2 MEAN CORPUSCULAR HEMOGLOBIN (BEAKER) (test 33.0 pg 25.7-32.2 noap=426) MEAN CORPUSCULAR HEMOGLOBIN CONC (BEAKER) (test 34.7 GM/DL 32.3-36.5 bfst=338) RED CELL DISTRIBUTION WIDTH (BEAKER) (test 13.1 % 11.6-14.4 ovvo=634) PLATELET COUNT (BEAKER) (test ztbn=648) 420 K/CU MM 150-450 MEAN PLATELET VOLUME (BEAKER) (test ntfz=164) 9.4 fL 9.4-12.4 NUCLEATED RED BLOOD CELLS (BEAKER) (test 0 /100 WBC 0-0 sgmw=527) [id number] 19:26:00 Test Item Value Reference Range Comments PHOSPHORUS (BEAKER) (test tewy=855) 3.5 mg/dL 2.3-4.7 [id number] 19:26:00 Test Item Value Reference Range Comments MAGNESIUM (BEAKER) (test gmiv=400) 1.5 mg/dL 1.6-2.6 COMPREHENSIVE METABOLIC [id number] 19:26:00 Test Item Value Reference Range Comments TOTAL PROTEIN (BEAKER) 6.4 gm/dL 6.0-8.3 (test xbav=341) ALBUMIN (BEAKER) (test 2.7 g/dL 3.5-5.0 dtpz=1391) ALKALINE PHOSPHATASE 121 U/L 40-150 (BEAKER) (test xhmv=210) BILIRUBIN TOTAL (BEAKER) 0.5 mg/dL 0.2-1.2 (test adtj=670) SODIUM (BEAKER) (test 135 meq/L 136-145 phso=556) POTASSIUM (BEAKER) (test 3.3 meq/L 3.5-5.1 msfg=710) CHLORIDE (BEAKER) (test 106 meq/L 98-107 ijpk=536) CO2 (BEAKER) (test 22 meq/L 22-29 qslc=398) BLOOD UREA NITROGEN 6 mg/dL 7-21 (BEAKER) (test vplp=288) CREATININE (BEAKER) (test 0.55 mg/dL 0.57-1.25 rmot=745) GLUCOSE RANDOM (BEAKER) 108 mg/dL 70-105 (test lqqc=301) CALCIUM (BEAKER) (test 8.5 mg/dL 8.4-10.2 kxkv=696) AST (SGOT) (BEAKER) (test 27 U/L 5-34 mshs=055) ALT (SGPT) (BEAKER) (test 16 U/L 6-55 bkvd=782) EGFR (BEAKER) (test 147 mL/min/1.73 sq ESTIMATED GFR IS NOT vwhs=9963) m ACCURATE CREATININE CLEARANCE IN PREDICTING GLOMERULAR FILTRATION RATE. ESTIMATED GFR IS NOT APPLICABLE FOR DIALYSIS PATIENTS. CBC W/PLT COUNT & AUTO [id number] 19:24:00 Test Item Value Reference Range Comments WHITE BLOOD CELL COUNT (BEAKER) (test xkpl=522) 15.2 K/ L 3.5-10.5 RED BLOOD CELL COUNT (BEAKER) (test mlbq=295) 3.37 M/ L 4.63-6.08 HEMOGLOBIN (BEAKER) (test frxb=064) 11.1 GM/DL 13.7-17.5 HEMATOCRIT (BEAKER) (test ekgj=814) 32.7 % 40.1-51.0 MEAN CORPUSCULAR VOLUME (BEAKER) (test zfzz=192) 97.0 fL 79.0-92.2 MEAN CORPUSCULAR HEMOGLOBIN (BEAKER) (test 32.9 pg 25.7-32.2 cibp=368) MEAN CORPUSCULAR HEMOGLOBIN CONC (BEAKER) (test 33.9 GM/DL 32.3-36.5 hsze=771) RED CELL DISTRIBUTION WIDTH (BEAKER) (test 13.1 % 11.6-14.4 ticf=448) PLATELET COUNT (BEAKER) (test uqdk=468) 428 K/CU MM 150-450 MEAN PLATELET VOLUME (BEAKER) (test jrxa=613) 9.3 fL 9.4-12.4 NUCLEATED RED BLOOD CELLS (BEAKER) (test 0 /100 WBC 0-0 uurh=704) NEUTROPHILS RELATIVE PERCENT (BEAKER) (test 80 % frym=152) LYMPHOCYTES RELATIVE PERCENT (BEAKER) (test 14 % lhdq=318) MONOCYTES RELATIVE PERCENT (BEAKER) (test 4 % hftw=420) EOSINOPHILS RELATIVE PERCENT (BEAKER) (test 0 % ulee=919) BASOPHILS RELATIVE PERCENT (BEAKER) (test 0 % hxap=449) NEUTROPHILS ABSOLUTE COUNT (BEAKER) (test 12.19 K/ L 1.78-5.38 lsvf=332) LYMPHOCYTES ABSOLUTE COUNT (BEAKER) (test 2.11 K/ L 1.32-3.57 qmby=833) MONOCYTES ABSOLUTE COUNT (BEAKER) (test 0.66 K/ L 0.30-0.82 zsqd=668) EOSINOPHILS ABSOLUTE COUNT (BEAKER) (test 0.03 K/ L 0.04-0.54 uljo=327) BASOPHILS ABSOLUTE COUNT (BEAKER) (test 0.06 K/ L 0.01-0.08 liqu=732) IMMATURE GRANULOCYTES-RELATIVE PERCENT (BEAKER) 1 % 0-1 (test pqtq=5440) PROTHROMBIN [id number] 18:59:00 Test Item Value Reference Range Comments PROTIME (BEAKER) (test wdgt=281) 14.6 seconds 11.7-14.7 INR (BEAKER) (test qwax=561) 1.1 <=5.9 RECOMMENDED COUMADIN/WARFARIN INR THERAPY RANGESSTANDARD DOSE: 2.0 - 3.0 Includes: PROPHYLAXIS forvenous thrombosis, systemic embolization; TREATMENT for venous thrombosis and/or pulmonary embolus.HIGH RISK: Target INR is 2.5-3.5 for patients with mechanical heart valves.[id number] 18:59:00 Test Item Value Reference Range Comments PARTIAL THROMBOPLASTIN TIME (BEAKER) (test 37.7 seconds 22.5-36.0 soyu=700) BLOOD GAS, [id number] 18:46:00 Test Item Value Reference Range Comments PH ARTERIAL (BEAKER) (test kkbh=582) 7.34 7.35-7.45 PCO2 ARTERIAL (BEAKER) (test zvhu=715) 43 mmHg 35-45 PO2 ARTERIAL (BEAKER) (test uggs=530) 86 mmHg 80-90 O2 SATURATION ARTERIAL (BEAKER) (test pxxo=260) 96.0 % 96.0-97.0 HCO3 ARTERIAL (BEAKER) (test fduz=881) 23 mmol/L 21-29 BASE EXCESS ARTERIAL (BEAKER) (test xarc=978) -3.2 mmol/L -2.0-3.0 PATIENT TEMPERATURE (BEAKER) (test wudu=4367) 37.0 C FIO2 (BEAKER) (test xicb=6027) 36.0 % POCT-GLUCOSE [id number] 18:10:00 Test Item Value Reference Range Comments POC-GLUCOSE METER (BEAKER) 116 mg/dL 70-110 TESTED AT [address] (test tjpz=7087) [place] [address] [id number] 16:58:00 Test Item Value Reference Range Comments ACTIVATED CLOTTING TIME 142 sec TESTED AT [address] [facility] (test wrmt=094) [place] [address] [id number] 16:58:00 Test Item Value Reference Range Comments ACTIVATED CLOTTING TIME 230 sec TESTED AT [address] ([facility]) (test yioj=972) [place] [address] [id number] 16:58:00 Test Item Value Reference Range Comments ACTIVATED CLOTTING TIME 208 sec TESTED AT [address] ([facility]) (test kztv=828) [place] [address] [id number] 16:57:00 Test Item Value Reference Range Comments ACTIVATED CLOTTING TIME 268 sec TESTED AT [facility] [address] (BEAKER) (test laxz=319) [place] [address] [id number] 13:32:00 Test Item Value Reference Range Comments SODIUM (BEAKER) (test jzsd=015) 134 meq/L 136-145 POTASSIUM (BEAKER) (test geap=281) 3.9 meq/L 3.5-5.1 CHLORIDE (BEAKER) (test sfxs=640) 98 meq/L 98-107 CO2 (BEAKER) (test vsdx=594) 27 meq/L 22-29 POCT-GLUCOSE [id number] 12:08:00 Test Item Value Reference Range Comments POC-GLUCOSE METER (BEAKER) 80 mg/dL 70-110 TEST[facility] AT [place] [address] [facility] (test bvpa=0461[facility] [place] [address] [id number] 05:22:00 Test Item Value Reference Range Comments PHOSPHORUS (BEAKER) (test gtsq=278) 3.1 mg/dL 2.3-4.7 [id number] 05:22:00 Test Item Value Reference Range Comments MAGNESIUM (BEAKER) (test umzh=947) 1.6 mg/dL 1.6-2.6 BASIC METABOLIC [id number] 05:22:00 Test Item Value Reference Range Comments SODIUM (BEAKER) (test 131 meq/L 136-145 nasa=463) POTASSIUM (BEAKER) (test 3.2 meq/L 3.5-5.1 ystl=235) CHLORIDE (BEAKER) (test 96 meq/L 98-107 kksz=375) CO2 (BEAKER) (test 25 meq/L 22-29 dvhb=057) BLOOD UREA NITROGEN 9 mg/dL 7-21 (BEAKER) (test ztbi=259) CREATININE (BEAKER) (test 0.61 mg/dL 0.57-1.25 hbgz=723) GLUCOSE RANDOM (BEAKER) 63 mg/dL 70-105 (test mhqx=359) CALCIUM (BEAKER) (test 9.3 mg/dL 8.4-10.2 slpk=225) EGFR (BEAKER) (test 131 mL/min/1.73 sq m ESTIMATED GFR IS NOT hfcy=7798) ACCURATE CREATININE CLEARANCE IN PREDICTING GLOMERULAR FILTRATION RATE. ESTIMATED GFR IS NOT APPLICABLE FOR DIALYSIS PATIENTS. [id number] 05:21:00 Test Item Value Reference Range Comments PROTIME (BEAKER) (test blsd=492) 14.6 seconds 11.7-14.7 INR (BEAKER) (test nyvc=115) 1.2 <=5.9 PARTIAL THROMBOPLASTIN TIME (BEAKER) (test 39.3 seconds 22.5-36.0 yjcf=821) RECOMMENDED COUMADIN/WARFARIN INR THERAPY RANGESSTANDARD DOSE: 2.0 - 3.0 Includes: PROPHYLAXIS forvenous thrombosis, systemic embolization; TREATMENT for venous thrombosis and/or pulmonary embolus.HIGH RISK: Target INR is 2.5-3.5 for patients with mechanical heart valves.CBC W/PLT COUNT & AUTO [id number] 05:03:00 Test Item Value Reference Range Comments WHITE BLOOD CELL COUNT (BEAKER) (test dgow=060) 10.2 K/ L 3.5-10.5 RED BLOOD CELL COUNT (BEAKER) (test trem=574) 3.69 M/ L 4.63-6.08 HEMOGLOBIN (BEAKER) (test mgfa=170) 12.4 GM/DL 13.7-17.5 HEMATOCRIT (BEAKER) (test lrvt=734) 35.2 % 40.1-51.0 MEAN CORPUSCULAR VOLUME (BEAKER) (test xamt=646) 95.4 fL 79.0-92.2 MEAN CORPUSCULAR HEMOGLOBIN (BEAKER) (test 33.6 pg 25.7-32.2 igao=471) MEAN CORPUSCULAR HEMOGLOBIN CONC (BEAKER) (test 35.2 GM/DL 32.3-36.5 ktfx=029) RED CELL DISTRIBUTION WIDTH (BEAKER) (test 12.1 % 11.6-14.4 sxiq=097) PLATELET COUNT (BEAKER) (test gqty=306) 389 K/CU MM 150-450 MEAN PLATELET VOLUME (BEAKER) (test pndm=684) 9.9 fL 9.4-12.4 NUCLEATED RED BLOOD CELLS (BEAKER) (test 0 /100 WBC 0-0 utku=985) NEUTROPHILS RELATIVE PERCENT (BEAKER) (test 69 % lclh=672) LYMPHOCYTES RELATIVE PERCENT (BEAKER) (test 18 % lueo=834) MONOCYTES RELATIVE PERCENT (BEAKER) (test 10 % ycas=755) EOSINOPHILS RELATIVE PERCENT (BEAKER) (test 1 % lllh=388) BASOPHILS RELATIVE PERCENT (BEAKER) (test 1 % mbxj=359) NEUTROPHILS ABSOLUTE COUNT (BEAKER) (test 7.01 K/ L 1.78-5.38 qwfm=977) LYMPHOCYTES ABSOLUTE COUNT (BEAKER) (test 1.85 K/ L 1.32-3.57 xhgm=292) MONOCYTES ABSOLUTE COUNT (BEAKER) (test 1.06 K/ L 0.30-0.82 grqz=709) EOSINOPHILS ABSOLUTE COUNT (BEAKER) (test 0.13 K/ L 0.04-0.54 vevi=121) BASOPHILS ABSOLUTE COUNT (BEAKER) (test 0.07 K/ L 0.01-0.08 gupi=411) IMMATURE GRANULOCYTES-RELATIVE PERCENT (BEAKER) 0 % 0-1 (test gpxi=6900) POCT-GLUCOSE [id number] 16:38:00 Test Item Value Reference Range Comments POC-GLUCOSE METER (BEAKER) 106 mg/dL 70-110 TESTED AT [address] (test yksf=8593) [facility] [address] [id number] 06:15:00 Test Item Value Reference Range Comments PARTIAL THROMBOPLASTIN TIME (BEAKER) (test 40.6 seconds 22.5-36.0 ijao=710) PROTHROMBIN [id number] 06:14:00 Test Item Value Reference Range Comments PROTIME (BEAKER) (test tzso=455) 15.5 seconds 11.7-14.7 INR (BEAKER) (test nhew=314) 1.2 <=5.9 RECOMMENDED COUMADIN/WARFARIN INR THERAPY RANGESSTANDARD DOSE: 2.0 - 3.0 Includes: PROPHYLAXIS forvenous thrombosis, systemic embolization; TREATMENT for venous thrombosis and/or pulmonary embolus.HIGH RISK: Target INR is 2.5-3.5 for patients with mechanical heart valves.PROTHROMBIN [id number] 07:07: 00 Test Item Value Reference Range Comments PROTIME (BEAKER) (test zjbi=477) 15.4 seconds 11.7-14.7 INR (BEAKER) (test akoj=245) 1.2 <=5.9 RECOMMENDED COUMADIN/WARFARIN INR THERAPY RANGESSTANDARD DOSE: 2.0 - 3.0 Includes: PROPHYLAXIS forvenous thrombosis, systemic embolization; TREATMENT for venous thrombosis and/or pulmonary embolus.HIGH RISK: Target INR is 2.5-3.5 for patients with mechanical heart valves.[id number] 07:07:00 Test Item Value Reference Range Comments PARTIAL THROMBOPLASTIN TIME (BEAKER) (test 33.4 seconds 22.5-36.0 mhro=496) RAD, CHEST, 1 VIEW, NON [id number] 01:35:00Reason for exam:->preopShould this be performed at the bedside?->YesFINAL REPORT Comparison examination: None No pneumothorax, focal pulmonary consolidation, or significant pleural effusion. Normal cardiomediastinal contours. Demineralized skeleton. Multiple old healed left rib fractures. Normal soft tissues. Impression: No acute abnormality. Signed: Edmar Carmona MDReport Verified Date/Time: 06/28/2017 01:35:21 Reading Location: [address] Ortho Consult Reading Room Electronically signed by: EDMAR CARMONA M.D. on 06/28 01:35 AMBASIC METABOLIC [id number] 00:18:00 Test Item Value Reference Range Comments SODIUM (BEAKER) (test 133 meq/L 136-145 ynfq=220) POTASSIUM (BEAKER) (test 3.8 meq/L 3.5-5.1 Specimen slightly wvlz=705) hemolyzed CHLORIDE (BEAKER) (test 99 meq/L 98-107 jbcj=902) CO2 (BEAKER) (test 25 meq/L 22-29 vtfb=063) BLOOD UREA NITROGEN 5 mg/dL 7-21 (BEAKER) (test ihlm=978) CREATININE (BEAKER) (test 0.71 mg/dL 0.57-1.25 Specimen slightly xlvf=281) hemolyzed GLUCOSE RANDOM (BEAKER) 96 mg/dL 70-105 (test encn=517) CALCIUM (BEAKER) (test 9.4 mg/dL 8.4-10.2 kzvc=122) EGFR (BEAKER) (test 110 mL/min/1.73 sq m ESTIMATED GFR IS NOT wzyf=4348) ACCURATE CREATININE CLEARANCE IN PREDICTING GLOMERULAR FILTRATION RATE. ESTIMATED GFR IS NOT APPLICABLE FOR DIALYSIS PATIENTS. [id number] 00:08:00 Test Item Value Reference Range Comments PARTIAL THROMBOPLASTIN TIME (BEAKER) (test 38.7 seconds 22.5-36.0 cwab=204) PROTHROMBIN [id number] 00:07:00 Test Item Value Reference Range Comments PROTIME (BEAKER) (test okjw=918) 13.6 seconds 11.7-14.7 INR (BEAKER) (test rpkn=502) 1.1 <=5.9 RECOMMENDED COUMADIN/WARFARIN INR THERAPY RANGESSTANDARD DOSE: 2.0 - 3.0 Includes: PROPHYLAXIS forvenous thrombosis, systemic embolization; TREATMENT for venous thrombosis and/or pulmonary embolus.HIGH RISK: Target INR is 2.5-3.5 for patients with mechanical heart valves.CBC W/PLT COUNT & AUTO [id number] 23:56:00 Test Item Value Reference Range Comments WHITE BLOOD CELL COUNT (BEAKER) (test lqeu=207) 9.8 K/ L 3.5-10.5 RED BLOOD CELL COUNT (BEAKER) (test zmxx=644) 4.08 M/ L 4.63-6.08 HEMOGLOBIN (BEAKER) (test rjhi=873) 13.7 GM/DL 13.7-17.5 HEMATOCRIT (BEAKER) (test dzzq=009) 40.0 % 40.1-51.0 MEAN CORPUSCULAR VOLUME (BEAKER) (test hkae=913) 98.0 fL 79.0-92.2 MEAN CORPUSCULAR HEMOGLOBIN (BEAKER) (test 33.6 pg 25.7-32.2 kbbr=837) MEAN CORPUSCULAR HEMOGLOBIN CONC (BEAKER) (test 34.3 GM/DL 32.3-36.5 txbr=616) RED CELL DISTRIBUTION WIDTH (BEAKER) (test 12.6 % 11.6-14.4 rzuz=973) PLATELET COUNT (BEAKER) (test aure=168) 408 K/CU MM 150-450 MEAN PLATELET VOLUME (BEAKER) (test lnyx=506) 9.0 fL 9.4-12.4 NUCLEATED RED BLOOD CELLS (BEAKER) (test 0 /100 WBC 0-0 lwpw=301) NEUTROPHILS RELATIVE PERCENT (BEAKER) (test 61 % mcfx=096) LYMPHOCYTES RELATIVE PERCENT (BEAKER) (test 29 % gdxu=600) MONOCYTES RELATIVE PERCENT (BEAKER) (test 8 % hqyi=931) EOSINOPHILS RELATIVE PERCENT (BEAKER) (test 1 % kbbi=092) BASOPHILS RELATIVE PERCENT (BEAKER) (test 1 % vhqx=752) NEUTROPHILS ABSOLUTE COUNT (BEAKER) (test 5.98 K/ L 1.78-5.38 nhgy=310) LYMPHOCYTES ABSOLUTE COUNT (BEAKER) (test 2.81 K/ L 1.32-3.57 edgi=659) MONOCYTES ABSOLUTE COUNT (BEAKER) (test 0.82 K/ L 0.30-0.82 ftxw=861) EOSINOPHILS ABSOLUTE COUNT (BEAKER) (test 0.13 K/ L 0.04-0.54 ltpp=859) BASOPHILS ABSOLUTE COUNT (BEAKER) (test 0.08 K/ L 0.01-0.08 uevl=922) IMMATURE GRANULOCYTES-RELATIVE PERCENT (BEAKER) 0 % 0-1 (test ofte=3437)
[2018-02-08] MEDS ORDERED: ALBUTEROL 2.5 MG/3 ML NEB SOL ONE ×2 (19:19→19:23)
--- NOTE | 2018-02-08 20:05 | RAD REPORT ---
EXAM DESCRIPTION: Gerri Holland (2 Views)02/08/2018 7:59 pm CLINICAL HISTORY: Cough COMPARISON: June 2017 FINDINGS: The lungs appear clear of acute infiltrate. The heart is normal size Old rib fractures are present IMPRESSION: No acute abnormalities displayed
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
--- NOTE | 2018-02-08 20:08 | RAD REPORT ---
EXAM DESCRIPTION: RAD - Lumbar Spine 3 Views - 02/08/2018 7:53 pm CLINICAL HISTORY: Back pain FINDINGS: The alignment of the lumbar spine is satisfactory. The bones are osteoporotic. Mild compression deformity involves the L4 vertebral body. Prior exams are not available for comparis on. I suspect it is old. If the patient has clinical symptoms to suggest that this is acute then MRI would be recommended. Osteoarthritis involves the facet joints of the lower lumbar spine. Spinal stenosis is suspected. Mil d spondylosis is seen
--- NOTE | 2018-02-08 20:10 | RAD REPORT ---
EXAM DESCRIPTION: RADSacrum And Coccyx02/08/2018 7:55 pm CLINICAL HISTORY: Back pain status post fall FINDINGS: The bones are osteoporotic. No gross fracture is seen
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
[2018-02-08 22:04] VITALS: TEMP 97.6
[2018-02-08 22:07] VITALS: BP 145/61; O2SAT 96
== END 2018-02-08 20:35 | disposition home or self-care (01) ==
LOC: ER 18:35
DX: R05 Cough (principal); W19.XXXA Unspecified fall, initial encounter; Y93.9 Activity, unspecified; Y92.9 Unspecified place or not applicable; Z72.0 Tobacco use; I10 Essential (primary) hypertension
CPT/HCPCS: 71046; 72100; 72170; 72220; 99285

== ENCOUNTER 2018-06-04 18:16 | Emergency (ER) | payer OTHER ==
--- OUTSIDE RECORDS SUMMARY | 2018-06-04 18:17 | XMS REPORT | Clinical Summary ---
:[address] [facility] Address [address] [place] [address] Phone Care Team Providers Name Role Phone [...] Ryan Cook OR CASE CANCELED IN A., [facility] ROOM 07/11/2017 Anesthesia Event Adrien Heredia MD 07/09/2017 - Hospital Encounter Cardiology Stephanie Bone, Gangrene of right foot 07/25/2017 ([facility]);Ischemic Shiekh foot;Gangrene of toe Juana Chacon of right foot MD Roland ([facility]);PAD (peripheral Gadicherla, artery disease) Ellen ([facility]);Acute blood loss MD Indira as cause of [place]kov[place]uri, postoperative MD Faby anemia;Acute post-operative pain;Hypertension, unspecified type;Hypophosphatemia; Dilutional hyponatremia;Paroxysma l atrial fibrillation ([facility]);Preop cardiovascular exam 07/09/2017 Anesthesia Event Joey Syed AA 07/09/2017 Procedure Pass 07/09/2017 Surgery Stephanie Bone, BYPASS,FEMORAL-TIBIAL 07/06/2017 Hospital Encounter Pre-Admission Stephanie Bone Testing 06/29/2017 Procedure Pass 06/29/2017 Surgery Stephanie Bone ANGIOGRAM,CORONARY 06/27/2017 - Hospital Encounter Cardiology Juanpablo Ordaz PAD (peripheral artery 07/03/2017 MD Ian disease) Stephanie Bone, ([facility]);Gangrene of toe MD of right foot ([facility]);Ischemic foot;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, stage 4 ([facility]);Onychomycosis of right great toe;Onychomycosis of left great toe;Ingrown left greater toenail;Ingrown right greater toenail;Dystrophic nail;Preoperative cardiovascular examination after 06/03/2017 Social History Tobacco Use Types Packs/Day Years [...] Taken Blood Pressure 114/53 07/25/2017 11:00 AM [employer] Pulse 53 07/25/2017 11:00 AM [employer] Temperature 36.9 C (98.4 F) 07/25/2017 11:00 AM [employer] Respiratory Rate 18 07/25/2017 11:00 AM [employer] Oxygen Saturation 100% 07/25/2017 11:00 AM [employer] Inhaled Oxygen Concentration - - Weight 59.1 kg (130 lb 3.2 oz) 07/25/2017 6:09 AM [employer] Height 182.9 cm (6') 07/09/2017 11:24 AM [employer] Body Mass Index 17.66 07/25/2017 6:09 AM [employer] Plan of Treatment Not on file Implants Implanted Type Area Wheel Tuner Device Expiration Model / Identifier Date Serial / Lot Device Clsr Angio-Seal Vip 6fr [id number] - [id number] Cardiovascular N/A: [employer] 04/02/2018 [id number] / Implanted: Qty: 1 on 06/29/2017 by Stephanie Bone MD Groin MED:CARDIAC [id number] / SURG Device Clsr Angio-Seal Vip 6fr [id number] - [id number] Cardiovascular Left: [employer] 05/03/2018 [id number] / Implanted: Qty: 1 on 07/16/2017 by Stephanie Bone MD Grond MED:CARDIAC / SURG [id number] Grft Eptfe-Heparin Rng [id number] - [id number] Graft/Patch Right: BEN GORE & 07/11/2020 [id number] / Implanted: Qty: 1 on 07/09/2017 by Stephanie Bone MD Leg ASSC:MED PRDT [id number] / Synergy Stents-Periphera BOSTON [id number] 10/23/2017 [id number] / Implanted: Qty: 1 on 07/16/2017 by Stephanie Bone MD [facility] / [id number] Procedures Procedure Name Priority Date/Time Associated Diagnosis Comments AMPUTATION,ABOVE KNEE 07/22/2017 1:00 PM RIGHT LEG ACUTE [employer] ESCHEMIA Special Needs (REQ. 1100) ANGIOGRAM,CORONARY 07/16/2017 10:07 AM [employer] chest pain right lower ext angios OR CASE CANCELED IN ROOM 07/12/2017 8:34 PM [employer] Gangrene (HCC) Special Needs (PULSE LAVAGE, GRAFT JACKET, WOUND VAC)REQ TO FOLLOW BYPASS,FEMORAL-TIBIAL 07/09/2017 4:00 PM [employer] PAD (peripheral artery disease) ([facility]) ANGIOGRAM,CORONARY 06/29/2017 1:50 PM CDT PAD (peripheral artery disease) ([facility]) Case Notes POP6 R LOWER ANGIOGRAM W/POSSIBLE INTERVENTION Special Needs PER SUSY LIU TO ADD NEXT DAY PER RADHA REQ CASE TO FOLLOW 11AM after 06/03/2017 Results RHYTHM STRIP - SCAN (07/31/2017 8:52 AM)Only the most recent of4 resultswithin the time period is included.POC-Glucose meter (07/25/2017 12:05 PM)Only the most recent of46 resultswithin the time period is included. Component Value Ref Range POC-Glucose Meter 100Comment: TESTED AT [address] 70 - 110 mg/dL [address] Specimen Performing Laboratory Blood [address] [address] CBC (Hemogram only) (07/25/2017 6:14 AM)Only the [...] WBC Specimen Performing Laboratory Blood - Arm, [address] [address] Phosphorus (07/25/2017 6:14 AM)Only the most recent of18 resultswithin the time period is included. Component Value Ref Range Phosphorus 2.8 2.3 - 4.7 mg/dL Specimen Performing Laboratory Blood - Arm, [address] [place] [address] Magnesium (07/25/2017 6:14 AM)Only the most recent of19 resultswithin the time period is included. Component Value Ref Range Magnesium 1.9 1.6 - 2.6 mg/dL Specimen Performing Laboratory Blood - Arm, [address] [address] Basic Metabolic Panel (07/25/2017 6:14 AM)Only the [...] PATIENTS. Specimen Performing Laboratory Blood - Arm, [address] [address] ECG 12 lead (07/24/2017 3:03 PM)Only the most recent of9 resultswithin the time period is included. Specimen Performing Laboratory GE MUSE Narrative Ventricular Rate 129 BPM Atrial Rate 147 BPM QRS Duration 80 ms Q-T Interval 316 ms QTC Calculation(Bazett) 462 ms R [place] 9 degrees T [place] 68 degrees Atrial fibrillation with rapid ventricular [...] External Ris In - 07/25/2017 6:16 AM [employer] Ventricular Rate 129 BPM Atrial Rate 147 BPM QRS Duration 80 ms Q-T Interval 316 ms QTC Calculation(Bazett) 462 ms R [place] 9 degrees T [place] 68 degrees Atrial fibrillation with rapid ventricular [...] Range Case Report Surgical Pathology Report Case: [id number] Authorizing Provider:Stephanie Bone MD Collected: 07/22/2017 1348 Ordering Location: [facility] PERIOPERATIVE Received: 07/23/2017 0851 SERVICES Pathologist: Marquis Carolina MD Specimen:Leg, Right, RIGHT ABOVE KNEE AMPUTATION DIAGNOSIS BONE AND SOFT TISSUE, RIGHT LEG, AMPUTATION: -GANGRENOUS NECROSIS -BONE AND SOFT TISSUE MARGINS VIABLE Signing Pathologist Direct Phone Line: [phone] CPT Code(s) 36264 50534 CLINICAL HISTORY Right leg acute ischemia SPECIMEN SOURCE Right above-knee amputation GROSS DESCRIPTION The specimen is received in a biohazard bag labeled with the patient's information and labeled "right above-knee amputation" and consists of a right [id number] amputation with exposed femur measurin g 7 [...] Specimen Performing Laboratory Tissue - Leg, Right [address] [address] Prepare Leuko-Red RBC (07/22/2017 8:03 AM)Only the most recent of2 resultswithin the time period is included. Component Value Ref Range CROSSMATCH COMPATIBLE Unit ABO A Pos UNIT NUMBER [id number] Status READY Blood Bank Product RED BLOOD CELLS PRODUCT CODE H9954C35 CROSSMATCH COMPATIBLE Unit ABO A Pos UNIT NUMBER [id number] Status READY Blood Bank Product RED BLOOD CELLS PRODUCT CODE [id number] Specimen Performing Laboratory Other [place] Type and screen, automated (07/21/2017 11:08 PM)Only the most recent of3 resultswithin the time period is included. Component Value Ref Range ABO/RH AUTOMATED (BEAKER) A POSITIVE Ab Scrn NEGATIVE Specimen Performing Laboratory Blood [address] [address] CARDIAC CATH REPORT - SCAN (07/17/2017 3:42 PM)Only the most recent of2 resultswithin the time period is included.NM myocardial perfusion SPECT, pharm( Lexiscan) (07/17/2017 2:24 PM) Specimen Performing Laboratory [facility] Narrative FINAL REPORT PROCEDURE:Rest/Stress MYOCARDIAL PERFUSION SPECT with regadenoson\\XA9\\ CPT CODE:92396 INDICATION:Preoperative evaluation, PAD HISTORY:Cardiac risk factors: Hypertension, [...] function.5. Normal extracardiac tracer distribution.6. No previous [facility] study for comparison. Signed: Jeanie Carolina MD Report Verified Date/Time:07/17/2017 20:10:02 Reading Location: [place] [id number] Reading Room Procedure Note Interface, External Ris In - 07/17/2017 8:12 PM [employer] FINAL REPORT PROCEDURE: Rest/Stress MYOCARDIAL PERFUSION SPECT with regadenoson\\XA9\\ CPT CODE: 19154 INDICATION: Preoperative evaluation, PAD HISTORY: Cardiac risk [...] Normal extracardiac tracer distribution. 6. No previous [facility] study for comparison. Signed: Jeanie Carolina MD Report Verified Date/Time: 07/17/2017 20:10:02 Reading Location: [address] P327B [facility] Reading Room Treadmill tolerance(Non-Nuclear Treadmill) (07/17/2017 11:48 AM) Specimen Performing Laboratory CircleUp Narrative Protocol Name Lexiscan Time In Exercise [...] 2:00:25 PM Confirmed by MD ZAMORA YOCHAI ([id number]) on 07/17/2017 3:20:22 PM Procedure Note Interface, External Ris In - 07/17/2017 3:20 PM [employer] Protocol Name Lexiscan Time In Exercise Phase [...] Performing Laboratory Blood - Arm, [place] [address] Transfuse Leuko-Red RBC (07/16/2017 2:11 PM)ECHOCARDIOGRAM REPORT - SCAN (07/13 5:05 PM)2D Echo W/Doppler(CW/PW/Color) (07/13/2017 11:01 AM) Component Value Ref Range Ejection Fraction Specimen Performing Laboratory [facility] ECHO HEART[facility] MKCKESSON CPACS Narrative Transthoracic Echocardiography Report (TTE) Demographics Patient Name El WALKER of Study 07/13/2017 CELIA [id number] GenderMale Visit Number [id number] RaceCaucasian [id number] Number 1015 Number Date of Birth1945 Referring Physician Toño Simpson MD Age72 year(s) Lead Ramp Service Man Benoit Heath [facility] Tahira Key CS InterpretingDonovan Damon MD Physician [...] External Ris In - 07/13/2017 4:00 PM [employer] Transthoracic Echocardiography Report (TTE) Demographics Patient Name JOSE DANIEL WALKER Date of Study 07/13/2017 CELIA Gender Male Visit Number [id number] Race Room Number 1015 Number Date of 1945 Referring Physician Toño Simpson MD Age 72 year(s) Lead Ramp Service Man Benoit Heath [facility] Curb Setter Helper Steffanie Key RDCS Interpreting Donovan Damon MD [...] - 0.03 ng/mL Specimen Performing Laboratory Blood [address] [address] Narrative Troponin I (TnI) levels must be [...] Index 1.3 % Specimen Performing Laboratory Blood [address] [address] Narrative CK-MB Reference Range: <6.7Normal 6.7-10.0Borderline >10.0 [...] Performing Laboratory Blood, Arterial - Line, Arterial [address] [address] CBC with platelet count + automated diff [...] - 1 % Specimen Performing Laboratory Blood [address] [address] Prothrombin time/INR (07/09/2017 6:30 PM)Only the most recent of4 resultswithin the time period is included. Component Value Ref Range Protime 14.6 11.7 - 14.7 seconds INR 1.1 <=5.9 Specimen Performing Laboratory Blood [address] [address] Narrative RECOMMENDED COUMADIN/WARFARIN INR THERAPY RANGES STANDARD [...] Status --------- ------ CBC with platelet count ...[[id number]]AbnormalFinal result Please view results for these tests [...] FOR DIALYSIS PATIENTS. Specimen Performing Laboratory Blood [address] [address] POC ACTIVATED CLOTTING TIME (07/09/2017 4:51 PM)Only the most recent of4 resultswithin the time period is included. Component Value Ref Range Activated Clotting Time 142Comment: TESTED AT [address] sec [address] Specimen Performing Laboratory [address] [address] Electrolytes (07/06/2017 1:11 PM) Component Value Ref Range Sodium 134 (L) 136 - 145 meq/L Potassium 3.9 3.5 - 5.1 meq/L Chloride 98 98 - 107 meq/L CO2 27 22 - 29 meq/L Specimen Performing Laboratory Blood [address] [address] PERIPHERAL VASCULAR REPORT - SCAN (07/02/2017 12:50 PM)Only the most recent of2 resultswithin the time period is included.Arterial doppler legs bilateral (07/02 9:30 AM) Component Value Ref Range Ejection Fraction Specimen Performing Laboratory [facility] ECHO HEARTLAB MKCKESSON CPACS Impressions Right Impression [...] to the doppler not being able to black pickler the low monophasic flow. 7. The TBI [...] to the doppler not being able to black pickler the low monophasic flow. The TBI was [...] + + + + + + !Prox UNDER BASTER ! !! !Absent ! !! !Absent ! + + + + + + + + + + !Mid UNDER BASTER ! !! !Absent ! !! !Absent ! + + + + + + + + + + !Dist UNDER BASTER ! !24.4! !Monophasic ! !! !Absent ! [...] WALKER Date of Study 07/02/2017 72 Visit [id number] Male of 1945 Number Referring Orlin MainRoom Number 1110 Physician Lead Ramp Service Man Robert William. InterpretingJ. Meek Gutierres RVT, Theodora [...] of Study 07/02/2017 Age 72 Visit Number [id number] Gender Male Date of 1945 Number Referring Orlin Main Room Number 1110 Physician Lead Ramp Service Man Robert Willima. Stefan Gutierres Pawan, ARS Physician , RPELE [...] to the doppler not being able to black pickler the low monophasic flow. 7. The TBI [...] to the doppler not being able to black pickler the low monophasic flow. The TBI was [...] + + + +-------- ---------+ + !Prox UNDER BASTER ! ! ! !Absent ! ! ! !Absent ! + + + ------+ + + + +-------- ---------+ + !Mid UNDER BASTER ! ! ! !Absent ! ! ! !Absent ! + + + ------+ + + + +-------- ---------+ + !Dist UNDER BASTER ! !24.4 ! !Monophasic ! ! ! [...] 36.0 seconds Specimen Performing Laboratory [place] [address] Narrative RECOMMENDED COUMADIN/WARFARIN INR THERAPY RANGES STANDARD DOSE: 2.0 - 3.0 Includes: PROPHYLAXIS for venous thrombosis, systemic embolization; TREATMENT for venous thrombosis and/or pulmonary embolus. HIGH RISK: Target INR is 2.5-3.5 for patients with mechanical heart valves. Vein Mapping Legs Bilateral (06/30/2017 6:35 PM) Component Value Ref Range Ejection Fraction Specimen Performing Laboratory [facility] ECHO HEARTLAB MKCKESSON CPACS Impressions Right Impression [...] Demographics Patient Name El WALKER of Study06/30/2017 [id number] Age72 Visit Number [id number] Gender Male Accession Number [id number] [facility]1945 [facility] [id number] Physician Brandi MenaInterpreting Aliza Wilder MD, VI [...] of Study 06/30/2017 Age 72 Visit Number [id number] Gender Male Accession Number [id number] Date of 1945 Referring Orlin Main Room Number 1110 Physician Lead Ramp Service Man Caitlin Gutierres T Physician , RPVI Procedure [...] MD Report Verified Date/Time:06/28/2017 01:35:21 Reading Location: [facility] C013X Ortho Consult Reading Room Procedure Note Interface, External Ris In - 06/28/2017 1:37 AM CDT FINAL REPORT Comparison examination: None No pneumothorax, focal pulmonary consolidation, or significant pleural effusion. Normal cardiomediastinal contours. Demineralized skeleton. Multiple old healed left rib fractures. Normal soft tissues. Impression: No acute abnormality. Signed: Edmar Carmona MD Report Verified Date/Time: 06/28/2017 01:35:21 Reading Location: [facility] B1 C013X Ortho Consult Reading Room after 06/03/2017
--- OUTSIDE RECORDS SUMMARY | 2018-06-04 18:19 | XMS REPORT ---
:1945 [facility] Address [address] [place] [address] [address] [place] [address] Care Team Providers Name Role Phone STEPHANIE BONE Unavailable Unavailable EMORYBARBER Unavailable Unavailable Problems This patient has no known problems. Allergies, Adverse Reactions, Alerts This patient has no known allergies or adverse reactions. Medications This patient has no known medications. Results Test Description Test Time Test Comments Text Results Atomic Results Result Comments TISSUE EXAM 2017-07-30 11:00:00 Surgical Pathology Report Case: [id number] Authorizing Provider: Stephanie Bone MD Collected: 07/22/2017 1348 Ordering Location: [facility] PERIOPERATIVE Received: 07/23/2017 0851 SERVICES Pathologist: Marquis Carolina MD Specimen: Leg, Right, RIGHT ABOVE KNEE AMPUTATION BONE AND SOFT TISSUE, RIGHT LEG, AMPUTATION: -GANGRENOUS NECROSIS -BONE AND SOFT TISSUE MARGINS VIABLE Signing Pathologist Direct Phone Line: [phone] signed by Marquis Carolina MD on 07/30/2017 at 11:00 [id number] leg acute ischemiaRight above-knee amputation The specimen is received in a biohazard bag labeled with the patient's information and labeled "right above-knee amputation" and consists of a right hbisg-qbt-tcsb amputation with exposed femur measuring 7 cm [...] (BEAKER) (test 100 mg/dL 70-110 TESTED AT [facility] [address] [facility] ylqu=[id number]) [facility] [address] [id number] 09:25:00 Test Item Value Reference Range Comments PHOSPHORUS (BEAKER) (test vyoc=957) 2.8 mg/dL 2.3-4.7 [id number] 09:25:00 Test Item Value Reference Range Comments MAGNESIUM (BEAKER) (test hbkw=091) 1.9 mg/dL 1.6-2.6 BASIC METABOLIC [id number] 09:25:00 Test Item Value Reference Range Comments SODIUM (BEAKER) (test 129 meq/L 136-145 opkm=714) POTASSIUM (BEAKER) (test 4.5 meq/L 3.5-5.1 oxry=758) CHLORIDE (BEAKER) (test 98 meq/L 98-107 jwec=224) CO2 (BEAKER) (test 23 meq/L 22-29 jqpo=322) BLOOD UREA NITROGEN 10 mg/dL 7-21 (BEAKER) (test vnfl=596) CREATININE (BEAKER) (test 0.57 mg/dL 0.57-1.25 lnfv=800) GLUCOSE RANDOM (BEAKER) 92 mg/dL 70-105 (test qrkx=110) CALCIUM (BEAKER) (test 8.7 mg/dL 8.4-10.2 xdyx=147) EGFR (BEAKER) (test 141 mL/min/1.73 sq m ESTIMATED GFR IS NOT wydn=7618) ACCURATE CREATININE CLEARANCE IN PREDICTING GLOMERULAR FILTRATION RATE. ESTIMATED GFR IS NOT APPLICABLE FOR DIALYSIS PATIENTS. POCT-GLUCOSE [id number] 08:41:00 Test Item Value Reference Range Comments POC-GLUCOSE METER (BEAKER) 94 mg/dL 70-110 TESTED AT [address] (test rlcd=0104) [facility] [address] CBC (HEMOGRAM ONLY)2017-07-25 07:20:00 Test Item Value Reference Range Comments WHITE BLOOD CELL COUNT (BEAKER) (test oauh=810) 10.3 K/ L 3.5-10.5 RED BLOOD CELL COUNT (BEAKER) (test oqhy=898) 3.19 M/ L 4.63-6.08 HEMOGLOBIN (BEAKER) (test vyrc=121) 10.0 GM/DL 13.7-17.5 HEMATOCRIT (BEAKER) (test klnn=299) 30.3 % 40.1-51.0 MEAN CORPUSCULAR VOLUME (BEAKER) (test gyog=943) 95.0 fL 79.0-92.2 MEAN CORPUSCULAR HEMOGLOBIN (BEAKER) (test 31.3 pg 25.7-32.2 ucal=420) MEAN CORPUSCULAR HEMOGLOBIN CONC (BEAKER) (test 33.0 GM/DL 32.3-36.5 shui=840) RED CELL DISTRIBUTION WIDTH (BEAKER) (test 13.8 % 11.6-14.4 grsv=448) PLATELET COUNT (BEAKER) (test zgiu=892) 576 K/CU MM 150-450 MEAN PLATELET VOLUME (BEAKER) (test pebl=459) 9.2 fL 9.4-12.4 NUCLEATED RED BLOOD CELLS (BEAKER) (test 0 /100 WBC 0-0 ffzp=452) POCT-GLUCOSE [id number] 22:44:00 Test Item Value Reference Range Comments POC-GLUCOSE METER (BEAKER) 118 mg/dL 70-110 TESTED AT [address] (test pjbi=7051) [place] [id number] POCT-GLUCOSE [id number] 17:45:00 Test Item Value Reference Range Comments POC-GLUCOSE METER (BEAKER) 96 mg/dL 70-110 TESTED AT [address] (test myvw=9554) [place] [address] POCT-GLUCOSE [id number] 12:54:00 Test Item Value Reference Range Comments POC-GLUCOSE METER (BEAKER) 94 mg/dL 70-110 TESTED AT [facility] [address] [facility] (test ofew=5739) [facility] [address] POCT-GLUCOSE [id number] 07:59:00 Test Item Value Reference Range Comments POC-GLUCOSE METER (BEAKER) 123 mg/dL 70-110 TESTED AT [facility] [address] [facility] (test vlpc=4374) [facility] [address] [id number] 07:44:00 Test Item Value Reference Range Comments MAGNESIUM (BEAKER) (test fhcl=453) 1.8 mg/dL 1.6-2.6 [id number] 07:44:00 Test Item Value Reference Range Comments PHOSPHORUS (BEAKER) (test sdfx=375) 3.3 mg/dL 2.3-4.7 BASIC METABOLIC [id number] 07:44:00 Test Item Value Reference Range Comments SODIUM (BEAKER) (test 132 meq/L 136-145 ycof=073) POTASSIUM (BEAKER) (test 3.7 meq/L 3.5-5.1 vono=241) CHLORIDE (BEAKER) (test 100 meq/L 98-107 kain=946) CO2 (BEAKER) (test 26 meq/L 22-29 voys=936) BLOOD UREA NITROGEN 5 mg/dL 7-21 (BEAKER) (test xkhl=244) CREATININE (BEAKER) (test 0.56 mg/dL 0.57-1.25 acvf=752) GLUCOSE RANDOM (BEAKER) 87 mg/dL 70-105 (test gzdc=125) CALCIUM (BEAKER) (test 8.6 mg/dL 8.4-10.2 ahdv=732) EGFR (BEAKER) (test 144 mL/min/1.73 sq m ESTIMATED GFR IS NOT vorc=6907) ACCURATE CREATININE CLEARANCE IN PREDICTING GLOMERULAR FILTRATION RATE. ESTIMATED GFR IS NOT APPLICABLE FOR DIALYSIS PATIENTS. CBC (HEMOGRAM ONLY)2017-07-24 07:38:00 Test Item Value Reference Range Comments WHITE BLOOD CELL COUNT (BEAKER) (test gpoz=887) 10.1 K/ L 3.5-10.5 RED BLOOD CELL COUNT (BEAKER) (test pqvf=907) 3.07 M/ L 4.63-6.08 HEMOGLOBIN (BEAKER) (test wfty=388) 9.7 GM/DL 13.7-17.5 HEMATOCRIT (BEAKER) (test bzyp=632) 28.9 % 40.1-51.0 MEAN CORPUSCULAR VOLUME (BEAKER) (test cmxb=085) 94.1 fL 79.0-92.2 MEAN CORPUSCULAR HEMOGLOBIN (BEAKER) (test 31.6 pg 25.7-32.2 didm=868) MEAN CORPUSCULAR HEMOGLOBIN CONC (BEAKER) (test 33.6 GM/DL 32.3-36.5 zacf=673) RED CELL DISTRIBUTION WIDTH (BEAKER) (test 14.0 % 11.6-14.4 fyui=065) PLATELET COUNT (BEAKER) (test yutr=395) 576 K/CU MM 150-450 MEAN PLATELET VOLUME (BEAKER) (test yrci=836) 9.4 fL 9.4-12.4 NUCLEATED RED BLOOD CELLS (BEAKER) (test 0 /100 WBC 0-0 ybyh=308) POCT-GLUCOSE [id number] 21:18:00 Test Item Value Reference Range Comments POC-GLUCOSE METER (BEAKER) 122 mg/dL 70-110 TESTED AT [address] (test neur=6803) [place] [address] POCT-GLUCOSE [id number] 17:07:00 Test Item Value Reference Range Comments POC-GLUCOSE METER (BEAKER) 99 mg/dL 70-110 TESTED AT [address] (test jfzv=6220) [place] [address] POCT-GLUCOSE [id number] 11:53:00 Test Item Value Reference Range Comments POC-GLUCOSE METER (BEAKER) 123 mg/dL 70-110 TESTED AT [address] (test tgpn=5719) [place] [address] POCT-GLUCOSE [id number] 08:08:00 Test Item Value Reference Range Comments POC-GLUCOSE METER (BEAKER) 124 mg/dL 70-110 TESTED AT [address] (test ykvq=3249) [place] [address] [id number] 06:48:00 Test Item Value Reference Range Comments MAGNESIUM (BEAKER) (test 1.8 mg/dL 1.6-2.6 Specimen slightly hemolyzed misp=457) [id number] 06:48:00 Test Item Value Reference Range Comments PHOSPHORUS (BEAKER) (test 3.5 mg/dL 2.3-4.7 Specimen slightly hemolyzed gvyt=253) BASIC METABOLIC [id number] 06:48:00 Test Item Value Reference Range Comments SODIUM (BEAKER) (test 129 meq/L 136-145 hvzu=735) POTASSIUM (BEAKER) (test 4.0 meq/L 3.5-5.1 Specimen slightly nxpt=050) hemolyzed CHLORIDE (BEAKER) (test 98 meq/L 98-107 scgn=757) CO2 (BEAKER) (test 23 meq/L 22-29 eizq=340) BLOOD UREA NITROGEN 5 mg/dL 7-21 (BEAKER) (test gzet=419) CREATININE (BEAKER) (test 0.57 mg/dL 0.57-1.25 Specimen slightly yamo=452) hemolyzed GLUCOSE RANDOM (BEAKER) 123 mg/dL 70-105 (test ebfp=389) CALCIUM (BEAKER) (test 8.8 mg/dL 8.4-10.2 vptv=888) EGFR (BEAKER) (test 141 mL/min/1.73 sq m ESTIMATED GFR IS NOT roai=3001) ACCURATE CREATININE CLEARANCE IN PREDICTING GLOMERULAR FILTRATION RATE. ESTIMATED GFR IS NOT APPLICABLE FOR DIALYSIS PATIENTS. CBC (HEMOGRAM ONLY)2017-07-23 06:23:00 Test Item Value Reference Range Comments WHITE BLOOD CELL COUNT (BEAKER) (test klcb=608) 14.6 K/ L 3.5-10.5 RED BLOOD CELL COUNT (BEAKER) (test xapc=333) 3.43 M/ L 4.63-6.08 HEMOGLOBIN (BEAKER) (test jyrm=745) 10.9 GM/DL 13.7-17.5 HEMATOCRIT (BEAKER) (test xfkq=856) 32.2 % 40.1-51.0 MEAN CORPUSCULAR VOLUME (BEAKER) (test pean=756) 93.9 fL 79.0-92.2 MEAN CORPUSCULAR HEMOGLOBIN (BEAKER) (test 31.8 pg 25.7-32.2 ovww=385) MEAN CORPUSCULAR HEMOGLOBIN CONC (BEAKER) (test 33.9 GM/DL 32.3-36.5 vein=223) RED CELL DISTRIBUTION WIDTH (BEAKER) (test 13.7 % 11.6-14.4 heoq=843) PLATELET COUNT (BEAKER) (test icmt=669) 565 K/CU MM 150-450 MEAN PLATELET VOLUME (BEAKER) (test ehjv=951) 9.5 fL 9.4-12.4 NUCLEATED RED BLOOD CELLS (BEAKER) (test 0 /100 WBC 0-0 wzzc=803) POCT-GLUCOSE [id number] 07:35:00 Test Item Value Reference Range Comments POC-GLUCOSE METER (BEAKER) 106 mg/dL 70-110 TESTED AT [facility] [address] [facility] (test pcaq=0530) [facility] [address] [id number] 06:24:00 Test Item Value Reference Range Comments PHOSPHORUS (BEAKER) (test cpwj=520) 3.3 mg/dL 2.3-4.7 [id number] 06:24:00 Test Item Value Reference Range Comments MAGNESIUM (BEAKER) (test uaci=016) 1.9 mg/dL 1.6-2.6 BASIC METABOLIC [id number] 06:24:00 Test Item Value Reference Range Comments SODIUM (BEAKER) (test 131 meq/L 136-145 rnxg=322) POTASSIUM (BEAKER) (test 4.4 meq/L 3.5-5.1 ckae=243) CHLORIDE (BEAKER) (test 99 meq/L 98-107 wgjx=304) CO2 (BEAKER) (test 24 meq/L 22-29 oula=685) BLOOD UREA NITROGEN 3 mg/dL 7-21 (BEAKER) (test kvqb=972) CREATININE (BEAKER) (test 0.60 mg/dL 0.57-1.25 zoxw=739) GLUCOSE RANDOM (BEAKER) 101 mg/dL 70-105 (test yllp=772) CALCIUM (BEAKER) (test 8.7 mg/dL 8.4-10.2 fatc=146) EGFR (BEAKER) (test 133 mL/min/1.73 sq m ESTIMATED GFR IS NOT sbdl=3047) ACCURATE CREATININE CLEARANCE IN PREDICTING GLOMERULAR FILTRATION RATE. ESTIMATED GFR IS NOT APPLICABLE FOR DIALYSIS PATIENTS. CBC (HEMOGRAM ONLY)2017-07-22 06:15:00 Test Item Value Reference Range Comments WHITE BLOOD CELL COUNT (BEAKER) (test nmtn=462) 10.7 K/ L 3.5-10.5 RED BLOOD CELL COUNT (BEAKER) (test ancg=323) 3.54 M/ L 4.63-6.08 HEMOGLOBIN (BEAKER) (test hcag=115) 11.2 GM/DL 13.7-17.5 HEMATOCRIT (BEAKER) (test bubf=578) 33.0 % 40.1-51.0 MEAN CORPUSCULAR VOLUME (BEAKER) (test jqia=752) 93.2 fL 79.0-92.2 MEAN CORPUSCULAR HEMOGLOBIN (BEAKER) (test 31.6 pg 25.7-32.2 obuh=678) MEAN CORPUSCULAR HEMOGLOBIN CONC (BEAKER) (test 33.9 GM/DL 32.3-36.5 vcpd=206) RED CELL DISTRIBUTION WIDTH (BEAKER) (test 13.7 % 11.6-14.4 yxxw=692) PLATELET COUNT (BEAKER) (test rzxl=905) 548 K/CU MM 150-450 MEAN PLATELET VOLUME (BEAKER) (test hjlv=444) 8.9 fL 9.4-12.4 NUCLEATED RED BLOOD CELLS (BEAKER) (test 0 /100 WBC 0-0 zifd=163) POCT-GLUCOSE [id number] 21:17:00 Test Item Value Reference Range Comments POC-GLUCOSE METER (BEAKER) 121 mg/dL 70-110 TESTED AT [address] (test ttgp=9448) [place] [address] POCT-GLUCOSE [id number] 17:44:00 Test Item Value Reference Range Comments POC-GLUCOSE METER (BEAKER) 128 mg/dL 70-110 TESTED AT [address] (test wocj=3971) [place] [address] POCT-GLUCOSE [id number] 12:33:00 Test Item Value Reference Range Comments POC-GLUCOSE METER (BEAKER) 107 mg/dL 70-110 TESTED AT [address] (test xzny=7346) [place] [address] CBC (HEMOGRAM ONLY)2017-07-21 08:20:00 Test Item Value Reference Range Comments WHITE BLOOD CELL COUNT (BEAKER) (test onjn=213) 12.1 K/ L 3.5-10.5 RED BLOOD CELL COUNT (BEAKER) (test nyho=566) 3.67 M/ L 4.63-6.08 HEMOGLOBIN (BEAKER) (test foxs=435) 11.6 GM/DL 13.7-17.5 HEMATOCRIT (BEAKER) (test hqdv=375) 34.6 % 40.1-51.0 MEAN CORPUSCULAR VOLUME (BEAKER) (test ztqd=337) 94.3 fL 79.0-92.2 MEAN CORPUSCULAR HEMOGLOBIN (BEAKER) (test 31.6 pg 25.7-32.2 iqjo=324) MEAN CORPUSCULAR HEMOGLOBIN CONC (BEAKER) (test 33.5 GM/DL 32.3-36.5 vlxt=218) RED CELL DISTRIBUTION WIDTH (BEAKER) (test 13.9 % 11.6-14.4 ktew=428) PLATELET COUNT (BEAKER) (test jbjp=977) 566 K/CU MM 150-450 MEAN PLATELET VOLUME (BEAKER) (test mcfq=066) 9.4 fL 9.4-12.4 NUCLEATED RED BLOOD CELLS (BEAKER) (test 0 /100 WBC 0-0 tipw=082) [id number] 07:52:00 Test Item Value Reference Range Comments PHOSPHORUS (BEAKER) (test jhvm=269) 3.3 mg/dL 2.3-4.7 [id number] 07:52:00 Test Item Value Reference Range Comments MAGNESIUM (BEAKER) (test jtmb=597) 1.7 mg/dL 1.6-2.6 BASIC METABOLIC [id number] 07:52:00 Test Item Value Reference Range Comments SODIUM (BEAKER) (test 129 meq/L 136-145 qije=809) POTASSIUM (BEAKER) (test 4.1 meq/L 3.5-5.1 yhea=524) CHLORIDE (BEAKER) (test 97 meq/L 98-107 mgrl=385) CO2 (BEAKER) (test 25 meq/L 22-29 urft=726) BLOOD UREA NITROGEN 4 mg/dL 7-21 (BEAKER) (test elnp=143) CREATININE (BEAKER) (test 0.62 mg/dL 0.57-1.25 ykgn=686) GLUCOSE RANDOM (BEAKER) 90 mg/dL 70-105 (test fkyn=572) CALCIUM (BEAKER) (test 8.7 mg/dL 8.4-10.2 ybym=928) EGFR (BEAKER) (test 128 mL/min/1.73 sq m ESTIMATED GFR IS NOT vjhf=3083) ACCURATE CREATININE CLEARANCE IN PREDICTING GLOMERULAR FILTRATION RATE. ESTIMATED GFR IS NOT APPLICABLE FOR DIALYSIS PATIENTS. POCT-GLUCOSE [id number] 22:43:00 Test Item Value Reference Range Comments POC-GLUCOSE METER (BEAKER) 99 mg/dL 70-110 TESTED AT [facility] [address] [facility] (test rlsm=4385) [facility] [address] POCT-GLUCOSE [id number] 12:13:00 Test Item Value Reference Range Comments POC-GLUCOSE METER (BEAKER) 97 mg/dL 70-110 TESTED AT [address] (test xjoc=0091) [facility] [address] [id number] 06:22:00 Test Item Value Reference Range Comments PHOSPHORUS (BEAKER) (test dmgp=620) 3.5 mg/dL 2.3-4.7 [id number] 06:22:00 Test Item Value Reference Range Comments MAGNESIUM (BEAKER) (test gtdx=358) 1.8 mg/dL 1.6-2.6 BASIC METABOLIC [id number] 06:22:00 Test Item Value Reference Range Comments SODIUM (BEAKER) (test 132 meq/L 136-145 odhx=016) POTASSIUM (BEAKER) (test 4.2 meq/L 3.5-5.1 zaou=518) CHLORIDE (BEAKER) (test 101 meq/L 98-107 dolu=812) CO2 (BEAKER) (test 23 meq/L 22-29 aljz=109) BLOOD UREA NITROGEN 7 mg/dL 7-21 (BEAKER) (test dppf=140) CREATININE (BEAKER) (test 0.60 mg/dL 0.57-1.25 eohy=692) GLUCOSE RANDOM (BEAKER) 95 mg/dL 70-105 (test vqcc=166) CALCIUM (BEAKER) (test 8.5 mg/dL 8.4-10.2 dtbq=450) EGFR (BEAKER) (test 133 mL/min/1.73 sq m ESTIMATED GFR IS NOT yyuq=5638) ACCURATE CREATININE CLEARANCE IN PREDICTING GLOMERULAR FILTRATION RATE. ESTIMATED GFR IS NOT APPLICABLE FOR DIALYSIS PATIENTS. CBC (HEMOGRAM ONLY)2017-07-20 05:43:00 Test Item Value Reference Range Comments WHITE BLOOD CELL COUNT (BEAKER) (test asym=505) 10.9 K/ L 3.5-10.5 RED BLOOD CELL COUNT (BEAKER) (test ohub=418) 3.58 M/ L 4.63-6.08 HEMOGLOBIN (BEAKER) (test qwzv=812) 11.2 GM/DL 13.7-17.5 HEMATOCRIT (BEAKER) (test emfz=359) 33.6 % 40.1-51.0 MEAN CORPUSCULAR VOLUME (BEAKER) (test nhyk=044) 93.9 fL 79.0-92.2 MEAN CORPUSCULAR HEMOGLOBIN (BEAKER) (test 31.3 pg 25.7-32.2 mdes=473) MEAN CORPUSCULAR HEMOGLOBIN CONC (BEAKER) (test 33.3 GM/DL 32.3-36.5 hgab=147) RED CELL DISTRIBUTION WIDTH (BEAKER) (test 14.0 % 11.6-14.4 slkf=244) PLATELET COUNT (BEAKER) (test ulhf=762) 532 K/CU MM 150-450 MEAN PLATELET VOLUME (BEAKER) (test hskw=894) 9.3 fL 9.4-12.4 NUCLEATED RED BLOOD CELLS (BEAKER) (test 0 /100 WBC 0-0 btar=456) POCT-GLUCOSE [id number] 20:13:00 Test Item Value Reference Range Comments POC-GLUCOSE METER (BEAKER) 113 mg/dL 70-110 TESTED AT [address] (test gtrm=8378) [facility] [address] POCT-GLUCOSE [id number] 08:04:00 Test Item Value Reference Range Comments POC-GLUCOSE METER (BEAKER) 101 mg/dL 70-110 TESTED AT [address] (test jewt=0476) [facility] [address] [id number] 05:24:00 Test Item Value Reference Range Comments PHOSPHORUS (BEAKER) (test iygy=265) 3.4 mg/dL 2.3-4.7 [id number] 05:24:00 Test Item Value Reference Range Comments MAGNESIUM (BEAKER) (test dvpz=644) 1.8 mg/dL 1.6-2.6 BASIC METABOLIC [id number] 05:24:00 Test Item Value Reference Range Comments SODIUM (BEAKER) (test 128 meq/L 136-145 tfjo=305) POTASSIUM (BEAKER) (test 4.1 meq/L 3.5-5.1 xybr=743) CHLORIDE (BEAKER) (test 96 meq/L 98-107 pjob=231) CO2 (BEAKER) (test 23 meq/L 22-29 vxgw=143) BLOOD UREA NITROGEN 4 mg/dL 7-21 (BEAKER) (test lxbk=903) CREATININE (BEAKER) (test 0.64 mg/dL 0.57-1.25 nrsh=974) GLUCOSE RANDOM (BEAKER) 105 mg/dL 70-105 (test fphh=480) CALCIUM (BEAKER) (test 9.1 mg/dL 8.4-10.2 kqcn=449) EGFR (BEAKER) (test 124 mL/min/1.73 sq m ESTIMATED GFR IS NOT idio=8792) ACCURATE CREATININE CLEARANCE IN PREDICTING GLOMERULAR FILTRATION RATE. ESTIMATED GFR IS NOT APPLICABLE FOR DIALYSIS PATIENTS. CBC (HEMOGRAM ONLY)2017-07-19 05:20:00 Test Item Value Reference Range Comments WHITE BLOOD CELL COUNT (BEAKER) (test pyyu=688) 11.1 K/ L 3.5-10.5 RED BLOOD CELL COUNT (BEAKER) (test mgbe=969) 3.72 M/ L 4.63-6.08 HEMOGLOBIN (BEAKER) (test uugf=389) 11.7 GM/DL 13.7-17.5 HEMATOCRIT (BEAKER) (test varf=139) 34.5 % 40.1-51.0 MEAN CORPUSCULAR VOLUME (BEAKER) (test lwhu=330) 92.7 fL 79.0-92.2 MEAN CORPUSCULAR HEMOGLOBIN (BEAKER) (test 31.5 pg 25.7-32.2 bxzt=700) MEAN CORPUSCULAR HEMOGLOBIN CONC (BEAKER) (test 33.9 GM/DL 32.3-36.5 bdfb=336) RED CELL DISTRIBUTION WIDTH (BEAKER) (test 14.2 % 11.6-14.4 pmlk=202) PLATELET COUNT (BEAKER) (test whzy=520) 519 K/CU MM 150-450 MEAN PLATELET VOLUME (BEAKER) (test ubxg=887) 9.1 fL 9.4-12.4 NUCLEATED RED BLOOD CELLS (BEAKER) (test 0 /100 WBC 0-0 hphz=737) POCT-GLUCOSE [id number] 22:11:00 Test Item Value Reference Range Comments POC-GLUCOSE METER (BEAKER) 98 mg/dL 70-110 TESTED AT [facility] [address] [place] [address] (test rres=5743) [facility] [address] POCT-GLUCOSE [id number] 07:39:00 Test Item Value Reference Range Comments POC-GLUCOSE METER (BEAKER) 96 mg/dL 70-110 TESTED AT [address] (test dxjg=3730) [facility] [address] [id number] 05:43:00 Test Item Value Reference Range Comments PHOSPHORUS (BEAKER) (test edxz=567) 3.3 mg/dL 2.3-4.7 [id number] 05:43:00 Test Item Value Reference Range Comments MAGNESIUM (BEAKER) (test uruw=416) 1.9 mg/dL 1.6-2.6 BASIC METABOLIC [id number] 05:43:00 Test Item Value Reference Range Comments SODIUM (BEAKER) (test 130 meq/L 136-145 wquw=324) POTASSIUM (BEAKER) (test 4.1 meq/L 3.5-5.1 exem=129) CHLORIDE (BEAKER) (test 98 meq/L 98-107 rjjr=548) CO2 (BEAKER) (test 24 meq/L 22-29 tvno=567) BLOOD UREA NITROGEN 4 mg/dL 7-21 (BEAKER) (test hruk=531) CREATININE (BEAKER) (test 0.60 mg/dL 0.57-1.25 lixx=100) GLUCOSE RANDOM (BEAKER) 100 mg/dL 70-105 (test imgb=503) CALCIUM (BEAKER) (test 8.7 mg/dL 8.4-10.2 psfj=017) EGFR (BEAKER) (test 133 mL/min/1.73 sq m ESTIMATED GFR IS NOT ntju=8582) ACCURATE CREATININE CLEARANCE IN PREDICTING GLOMERULAR FILTRATION RATE. ESTIMATED GFR IS NOT APPLICABLE FOR DIALYSIS PATIENTS. CBC (HEMOGRAM ONLY)2017-07-18 05:15:00 Test Item Value Reference Range Comments WHITE BLOOD CELL COUNT (BEAKER) (test oiiw=837) 11.9 K/ L 3.5-10.5 RED BLOOD CELL COUNT (BEAKER) (test klfm=061) 3.72 M/ L 4.63-6.08 HEMOGLOBIN (BEAKER) (test iolk=933) 11.8 GM/DL 13.7-17.5 HEMATOCRIT (BEAKER) (test caxx=260) 34.4 % 40.1-51.0 MEAN CORPUSCULAR VOLUME (BEAKER) (test flgu=588) 92.5 fL 79.0-92.2 MEAN CORPUSCULAR HEMOGLOBIN (BEAKER) (test 31.7 pg 25.7-32.2 fidw=517) MEAN CORPUSCULAR HEMOGLOBIN CONC (BEAKER) (test 34.3 GM/DL 32.3-36.5 inbc=168) RED CELL DISTRIBUTION WIDTH (BEAKER) (test 14.6 % 11.6-14.4 wbkv=707) PLATELET COUNT (BEAKER) (test gzbw=633) 519 K/CU MM 150-450 MEAN PLATELET VOLUME (BEAKER) (test bftb=801) 9.2 fL 9.4-12.4 NUCLEATED RED BLOOD CELLS (BEAKER) (test 0 /100 WBC 0-0 lwvj=730) POCT-GLUCOSE [id number] 20:53:00 Test Item Value Reference Range Comments POC-GLUCOSE METER (BEAKER) 113 mg/dL 70-110 TESTED AT [facility] [address] [facility] (test yhgr=7496) [facility] [address] [facility], MULTI, PHARM, [id number] 20:10:00FINAL REPORT PROCEDURE: Rest/Stress MYOCARDIAL PERFUSION SPECT with regadenoson\\XA9\\ CPT CODE: 50031 INDICATION: Preoperative evaluation, PAD HISTORY:Cardiac risk factors: [...] Normal extracardiac tracer distribution. 6. No previous [facility] study for comparison. Signed: Jeanie Carolina MDReport Verified Date/Time: 07/17/2017 20:10:02 Reading Location: [id number] Reading Room POCT-GLUCOSE [id number] 14: 53:00 Test Item Value Reference Range Comments POC-GLUCOSE METER (BEAKER) 93 mg/dL 70-110 TESTED AT [address] (test dprv=6018) [facility] [id number] POCT-GLUCOSE [id number] 08:04:00 Test Item Value Reference Range Comments POC-GLUCOSE METER (BEAKER) 109 mg/dL 70-110 TESTED AT [address] (test dbcb=9640) [facility] [address] [id number] 04:51:00 Test Item Value Reference Range Comments PHOSPHORUS (BEAKER) (test kxce=167) 3.3 mg/dL 2.3-4.7 [id number] 04:51:00 Test Item Value Reference Range Comments MAGNESIUM (BEAKER) (test xrde=971) 1.8 mg/dL 1.6-2.6 BASIC METABOLIC [id number] 04:51:00 Test Item Value Reference Range Comments SODIUM (BEAKER) (test 131 meq/L 136-145 qfqz=737) POTASSIUM (BEAKER) (test 3.8 meq/L 3.5-5.1 bwxi=624) CHLORIDE (BEAKER) (test 98 meq/L 98-107 qnlr=121) CO2 (BEAKER) (test 24 meq/L 22-29 oyse=041) BLOOD UREA NITROGEN 5 mg/dL 7-21 (BEAKER) (test xngk=430) CREATININE (BEAKER) (test 0.59 mg/dL 0.57-1.25 cryt=016) GLUCOSE RANDOM (BEAKER) 98 mg/dL 70-105 (test qnoc=930) CALCIUM (BEAKER) (test 8.8 mg/dL 8.4-10.2 wqru=081) EGFR (BEAKER) (test 136 mL/min/1.73 sq m ESTIMATED GFR IS NOT gexv=6900) ACCURATE CREATININE CLEARANCE IN PREDICTING GLOMERULAR FILTRATION RATE. ESTIMATED GFR IS NOT APPLICABLE FOR DIALYSIS PATIENTS. CBC (HEMOGRAM ONLY)2017-07-17 04:33:00 Test Item Value Reference Range Comments WHITE BLOOD CELL COUNT (BEAKER) (test ttit=814) 11.4 K/ L 3.5-10.5 RED BLOOD CELL COUNT (BEAKER) (test uxfd=684) 3.61 M/ L 4.63-6.08 HEMOGLOBIN (BEAKER) (test hhrf=102) 11.3 GM/DL 13.7-17.5 HEMATOCRIT (BEAKER) (test debm=534) 33.2 % 40.1-51.0 MEAN CORPUSCULAR VOLUME (BEAKER) (test rrgo=481) 92.0 fL 79.0-92.2 MEAN CORPUSCULAR HEMOGLOBIN (BEAKER) (test 31.3 pg 25.7-32.2 didc=549) MEAN CORPUSCULAR HEMOGLOBIN CONC (BEAKER) (test 34.0 GM/DL 32.3-36.5 vhlt=167) RED CELL DISTRIBUTION WIDTH (BEAKER) (test 14.7 % 11.6-14.4 aala=877) PLATELET COUNT (BEAKER) (test dzsn=109) 498 K/CU MM 150-450 MEAN PLATELET VOLUME (BEAKER) (test yfiv=116) 9.2 fL 9.4-12.4 NUCLEATED RED BLOOD CELLS (BEAKER) (test 0 /100 WBC 0-0 qooh=488) POCT-GLUCOSE [id number] 21:21:00 Test Item Value Reference Range Comments POC-GLUCOSE METER (BEAKER) 120 mg/dL 70-110 TESTED AT [facility] [address] [facility] (test hxjm=1871) [facility] [address] BASIC METABOLIC [id number] 19:38:00 Test Item Value Reference Range Comments SODIUM (BEAKER) (test 131 meq/L 136-145 yjyy=674) POTASSIUM (BEAKER) (test 4.1 meq/L 3.5-5.1 izbb=479) CHLORIDE (BEAKER) (test 98 meq/L 98-107 tcij=121) CO2 (BEAKER) (test 27 meq/L 22-29 hkps=879) BLOOD UREA NITROGEN 6 mg/dL 7-21 (BEAKER) (test lova=842) CREATININE (BEAKER) (test 0.61 mg/dL 0.57-1.25 juil=301) GLUCOSE RANDOM (BEAKER) 98 mg/dL 70-105 (test takk=304) CALCIUM (BEAKER) (test 8.9 mg/dL 8.4-10.2 hhgx=153) EGFR (BEAKER) (test 131 mL/min/1.73 sq m ESTIMATED GFR IS NOT zkqa=3298) ACCURATE CREATININE CLEARANCE IN PREDICTING GLOMERULAR FILTRATION RATE. ESTIMATED GFR IS NOT APPLICABLE FOR DIALYSIS PATIENTS. [id number] 19:25:00 Test Item Value Reference Range Comments PARTIAL THROMBOPLASTIN TIME (BEAKER) (test 35.0 seconds 22.5-36.0 wenu=086) CBC (HEMOGRAM ONLY)2017-07-16 19:13:00 Test Item Value Reference Range Comments WHITE BLOOD CELL COUNT (BEAKER) (test muks=911) 12.7 K/ L 3.5-10.5 RED BLOOD CELL COUNT (BEAKER) (test haab=285) 3.65 M/ L 4.63-6.08 HEMOGLOBIN (BEAKER) (test bjoa=448) 11.5 GM/DL 13.7-17.5 HEMATOCRIT (BEAKER) (test vxob=769) 33.5 % 40.1-51.0 MEAN CORPUSCULAR VOLUME (BEAKER) (test dyqi=992) 91.8 fL 79.0-92.2 MEAN CORPUSCULAR HEMOGLOBIN (BEAKER) (test 31.5 pg 25.7-32.2 ddxv=445) MEAN CORPUSCULAR HEMOGLOBIN CONC (BEAKER) (test 34.3 GM/DL 32.3-36.5 ptre=912) RED CELL DISTRIBUTION WIDTH (BEAKER) (test 14.8 % 11.6-14.4 qxpv=931) PLATELET COUNT (BEAKER) (test xnry=373) 495 K/CU MM 150-450 MEAN PLATELET VOLUME (BEAKER) (test uloc=577) 9.0 fL 9.4-12.4 NUCLEATED RED BLOOD CELLS (BEAKER) (test 0 /100 WBC 0-0 fjrx=679) POCT-GLUCOSE [id number] 07:50:00 Test Item Value Reference Range Comments POC-GLUCOSE METER (BEAKER) 109 mg/dL 70-110 TESTED AT [facility] [address] [facility] (test vqlq=1278) [facility] [address] [id number] 07:16:00 Test Item Value Reference Range Comments PARTIAL THROMBOPLASTIN TIME (BEAKER) (test 101.3 seconds 22.5-36.0 whkq=935) [id number] 05:32:00 Test Item Value Reference Range Comments MAGNESIUM (BEAKER) (test 1.8 mg/dL 1.6-2.6 Specimen slightly hemolyzed oxxz=163) [id number] 05:32:00 Test Item Value Reference Range Comments PHOSPHORUS (BEAKER) (test 3.7 mg/dL 2.3-4.7 Specimen slightly hemolyzed adqk=920) BASIC METABOLIC [id number] 05:32:00 Test Item Value Reference Range Comments SODIUM (BEAKER) (test 132 meq/L 136-145 bixd=483) POTASSIUM (BEAKER) (test 3.9 meq/L 3.5-5.1 Specimen slightly bjdx=343) hemolyzed CHLORIDE (BEAKER) (test 99 meq/L 98-107 eyeg=974) CO2 (BEAKER) (test 25 meq/L 22-29 aulo=751) BLOOD UREA NITROGEN 4 mg/dL 7-21 (BEAKER) (test kgqa=096) CREATININE (BEAKER) (test 0.60 mg/dL 0.57-1.25 Specimen slightly qtao=394) hemolyzed GLUCOSE RANDOM (BEAKER) 102 mg/dL 70-105 (test evly=342) CALCIUM (BEAKER) (test 8.8 mg/dL 8.4-10.2 ixbf=172) EGFR (BEAKER) (test 133 mL/min/1.73 sq m ESTIMATED GFR IS NOT aats=1390) ACCURATE CREATININE CLEARANCE IN PREDICTING GLOMERULAR FILTRATION RATE. ESTIMATED GFR IS NOT APPLICABLE FOR DIALYSIS PATIENTS. CBC (HEMOGRAM ONLY)2017-07-16 05:14:00 Test Item Value Reference Range Comments WHITE BLOOD CELL COUNT (BEAKER) (test xdwy=266) 10.4 K/ L 3.5-10.5 RED BLOOD CELL COUNT (BEAKER) (test miek=626) 3.29 M/ L 4.63-6.08 HEMOGLOBIN (BEAKER) (test mppz=091) 10.8 GM/DL 13.7-17.5 HEMATOCRIT (BEAKER) (test uwyb=493) 30.7 % 40.1-51.0 MEAN CORPUSCULAR VOLUME (BEAKER) (test qovo=847) 93.3 fL 79.0-92.2 MEAN CORPUSCULAR HEMOGLOBIN (BEAKER) (test 32.8 pg 25.7-32.2 mihq=851) MEAN CORPUSCULAR HEMOGLOBIN CONC (BEAKER) (test 35.2 GM/DL 32.3-36.5 ogce=525) RED CELL DISTRIBUTION WIDTH (BEAKER) (test 13.2 % 11.6-14.4 ehoc=301) PLATELET COUNT (BEAKER) (test qloi=778) 529 K/CU MM 150-450 MEAN PLATELET VOLUME (BEAKER) (test xxzs=000) 9.4 fL 9.4-12.4 NUCLEATED RED BLOOD CELLS (BEAKER) (test 0 /100 WBC 0-0 zxyi=920) POCT-GLUCOSE [id number] 20:54:00 Test Item Value Reference Range Comments POC-GLUCOSE METER (BEAKER) 114 mg/dL 70-110 TESTED AT [address] (test xaus=2260) [facility] [address] POCT-GLUCOSE [id number] 17:52:00 Test Item Value Reference Range Comments POC-GLUCOSE METER (BEAKER) 113 mg/dL 70-110 TESTED AT [address] (test khra=2161) [place] [id number] POCT-GLUCOSE [id number] 17:50:00 Test Item Value Reference Range Comments POC-GLUCOSE METER (BEAKER) 136 mg/dL 70-110 TESTED AT [place] [id number] [facility] (test llsx=6128) [facility] [address] [id number] 14:38:00 Test Item Value Reference Range Comments PARTIAL THROMBOPLASTIN TIME (BEAKER) (test 90.2 seconds 22.5-36.0 eyzj=306) [id number] 09:03:00 Test Item Value Reference Range Comments PARTIAL THROMBOPLASTIN TIME (BEAKER) (test 77.5 seconds 22.5-36.0 vlbe=173) POCT-GLUCOSE [id number] 08:06:00 Test Item Value Reference Range Comments POC-GLUCOSE METER (BEAKER) 89 mg/dL 70-110 TESTED AT [address] (test qspk=7653) [place] [id number] BASIC METABOLIC [id number] 01:59:00 Test Item Value Reference Range Comments SODIUM (BEAKER) (test 133 meq/L 136-145 mjmh=364) POTASSIUM (BEAKER) (test 3.9 meq/L 3.5-5.1 srpi=430) CHLORIDE (BEAKER) (test 99 meq/L 98-107 fjoc=674) CO2 (BEAKER) (test 23 meq/L 22-29 clfu=833) BLOOD UREA NITROGEN 4 mg/dL 7-21 (BEAKER) (test ppxw=122) CREATININE (BEAKER) (test 0.59 mg/dL 0.57-1.25 cmjj=559) GLUCOSE RANDOM (BEAKER) 94 mg/dL 70-105 (test ujun=859) CALCIUM (BEAKER) (test 8.8 mg/dL 8.4-10.2 llht=676) EGFR (BEAKER) (test 136 mL/min/1.73 sq m ESTIMATED GFR IS NOT rivu=2472) ACCURATE CREATININE CLEARANCE IN PREDICTING GLOMERULAR FILTRATION RATE. ESTIMATED GFR IS NOT APPLICABLE FOR DIALYSIS PATIENTS. [id number] 01:58:00 Test Item Value Reference Range Comments PHOSPHORUS (BEAKER) (test orly=643) 3.7 mg/dL 2.3-4.7 [id number] 01:58:00 Test Item Value Reference Range Comments MAGNESIUM (BEAKER) (test jpqf=123) 1.8 mg/dL 1.6-2.6 [id number] 01:54:00 Test Item Value Reference Range Comments PARTIAL THROMBOPLASTIN TIME (BEAKER) (test 58.6 seconds 22.5-36.0 eant=586) CBC (HEMOGRAM ONLY)2017-07-15 01:46:00 Test Item Value Reference Range Comments WHITE BLOOD CELL COUNT (BEAKER) (test qwnb=860) 11.0 K/ L 3.5-10.5 RED BLOOD CELL COUNT (BEAKER) (test cfto=624) 3.49 M/ L 4.63-6.08 HEMOGLOBIN (BEAKER) (test usdf=868) 11.5 GM/DL 13.7-17.5 HEMATOCRIT (BEAKER) (test smcs=194) 33.1 % 40.1-51.0 MEAN CORPUSCULAR VOLUME (BEAKER) (test uono=774) 94.8 fL 79.0-92.2 MEAN CORPUSCULAR HEMOGLOBIN (BEAKER) (test 33.0 pg 25.7-32.2 xnsa=825) MEAN CORPUSCULAR HEMOGLOBIN CONC (BEAKER) (test 34.7 GM/DL 32.3-36.5 lqyd=689) RED CELL DISTRIBUTION WIDTH (BEAKER) (test 13.2 % 11.6-14.4 jpjr=060) PLATELET COUNT (BEAKER) (test mpbc=410) 495 K/CU MM 150-450 MEAN PLATELET VOLUME (BEAKER) (test wvqm=903) 9.1 fL 9.4-12.4 NUCLEATED RED BLOOD CELLS (BEAKER) (test 0 /100 WBC 0-0 schb=224) [id number] 23:30:00 Test Item Value Reference Range Comments PARTIAL THROMBOPLASTIN TIME (BEAKER) (test 116.8 seconds 22.5-36.0 jenp=195) POCT-GLUCOSE [id number] 21:26:00 Test Item Value Reference Range Comments POC-GLUCOSE METER (BEAKER) 101 mg/dL 70-110 TESTED AT [facility] [address] [facility] (test weps=5250) [facility] [address] POCT-GLUCOSE [id number] 18:14:00 Test Item Value Reference Range Comments POC-GLUCOSE METER (BEAKER) 82 mg/dL 70-110 TESTED AT [address] (test sflc=9823) [facility] [address] [id number] 15:43:00 Test Item Value Reference Range Comments PARTIAL THROMBOPLASTIN TIME (BEAKER) (test 65.7 seconds 22.5-36.0 vkvw=754) POCT-GLUCOSE [id number] 12:44:00 Test Item Value Reference Range Comments POC-GLUCOSE METER (BEAKER) 121 mg/dL 70-110 TESTED AT [address] (test pmba=8856) [facility] [address] POCT-GLUCOSE [id number] 08:26:00 Test Item Value Reference Range Comments POC-GLUCOSE METER (BEAKER) 99 mg/dL 70-110 TESTED AT [address] (test znro=1769) [facility] [address] [id number] 07:58:00 Test Item Value Reference Range Comments PHOSPHORUS (BEAKER) (test snit=690) 2.4 mg/dL 2.3-4.7 [id number] 07:58:00 Test Item Value Reference Range Comments MAGNESIUM (BEAKER) (test myhw=878) 1.6 mg/dL 1.6-2.6 BASIC METABOLIC [id number] 07:58:00 Test Item Value Reference Range Comments SODIUM (BEAKER) (test 131 meq/L 136-145 quyt=839) POTASSIUM (BEAKER) (test 4.8 meq/L 3.5-5.1 intk=377) CHLORIDE (BEAKER) (test 102 meq/L 98-107 oanl=511) CO2 (BEAKER) (test 22 meq/L 22-29 fwvy=475) BLOOD UREA NITROGEN 3 mg/dL 7-21 (BEAKER) (test najr=975) CREATININE (BEAKER) (test 0.58 mg/dL 0.57-1.25 omdk=091) GLUCOSE RANDOM (BEAKER) 102 mg/dL 70-105 (test yxiq=144) CALCIUM (BEAKER) (test 8.8 mg/dL 8.4-10.2 tynn=562) EGFR (BEAKER) (test 139 mL/min/1.73 sq m ESTIMATED GFR IS NOT udmh=0161) ACCURATE CREATININE CLEARANCE IN PREDICTING GLOMERULAR FILTRATION RATE. ESTIMATED GFR IS NOT APPLICABLE FOR DIALYSIS PATIENTS. [id number] 07:22:00 Test Item Value Reference Range Comments PARTIAL THROMBOPLASTIN TIME (BEAKER) (test 64.2 seconds 22.5-36.0 mtcf=075) CBC (HEMOGRAM ONLY)2017-07-14 07:07:00 Test Item Value Reference Range Comments WHITE BLOOD CELL COUNT (BEAKER) (test gdtq=690) 10.5 K/ L 3.5-10.5 RED BLOOD CELL COUNT (BEAKER) (test cktl=529) 3.56 M/ L 4.63-6.08 HEMOGLOBIN (BEAKER) (test aolc=865) 11.8 GM/DL 13.7-17.5 HEMATOCRIT (BEAKER) (test lxrw=133) 34.6 % 40.1-51.0 MEAN CORPUSCULAR VOLUME (BEAKER) (test uabi=416) 97.2 fL 79.0-92.2 MEAN CORPUSCULAR HEMOGLOBIN (BEAKER) (test 33.1 pg 25.7-32.2 lrms=430) MEAN CORPUSCULAR HEMOGLOBIN CONC (BEAKER) (test 34.1 GM/DL 32.3-36.5 imvo=549) RED CELL DISTRIBUTION WIDTH (BEAKER) (test 13.2 % 11.6-14.4 kves=678) PLATELET COUNT (BEAKER) (test unrp=931) 458 K/CU MM 150-450 MEAN PLATELET VOLUME (BEAKER) (test caoc=760) 9.2 fL 9.4-12.4 NUCLEATED RED BLOOD CELLS (BEAKER) (test 0 /100 WBC 0-0 rjmt=542) [id number] 22:44:00 Test Item Value Reference Range Comments PARTIAL THROMBOPLASTIN TIME (BEAKER) (test 47.9 seconds 22.5-36.0 hlbn=203) POCT-GLUCOSE [id number] 21:32:00 Test Item Value Reference Range Comments POC-GLUCOSE METER (BEAKER) 110 mg/dL 70-110 TESTED AT [facility] [address] (test jnwj=7711) [facility] [address] POCT-GLUCOSE [id number] 18:25:00 Test Item Value Reference Range Comments POC-GLUCOSE METER (BEAKER) 109 mg/dL 70-110 TESTED AT [facility] [address] (test awor=3226) [place] [address] [id number] 14:09:00 Test Item Value Reference Range Comments PARTIAL THROMBOPLASTIN TIME (BEAKER) (test 42.7 seconds 22.5-36.0 lkho=852) [id number] 10:34:00 Test Item Value Reference Range Comments PARTIAL THROMBOPLASTIN TIME (BEAKER) (test 124.2 seconds 22.5-36.0 kanp=916) [id number] 01:47:00 Test Item Value Reference Range Comments PHOSPHORUS (BEAKER) (test cmyw=824) 2.5 mg/dL 2.3-4.7 [id number] 01:47:00 Test Item Value Reference Range Comments MAGNESIUM (BEAKER) (test uebc=142) 1.9 mg/dL 1.6-2.6 BASIC METABOLIC [id number] 01:47:00 Test Item Value Reference Range Comments SODIUM (BEAKER) (test 133 meq/L 136-145 vuko=891) POTASSIUM (BEAKER) (test 3.5 meq/L 3.5-5.1 yyqc=288) CHLORIDE (BEAKER) (test 101 meq/L 98-107 mgda=362) CO2 (BEAKER) (test 26 meq/L 22-29 hsqc=015) BLOOD UREA NITROGEN 4 mg/dL 7-21 (BEAKER) (test apkf=962) CREATININE (BEAKER) (test 0.53 mg/dL 0.57-1.25 allu=134) GLUCOSE RANDOM (BEAKER) 125 mg/dL 70-105 (test vhhv=078) CALCIUM (BEAKER) (test 8.2 mg/dL 8.4-10.2 vlaa=346) EGFR (BEAKER) (test 154 mL/min/1.73 sq m ESTIMATED GFR IS NOT kzkm=3239) ACCURATE CREATININE CLEARANCE IN PREDICTING GLOMERULAR FILTRATION RATE. ESTIMATED GFR IS NOT APPLICABLE FOR DIALYSIS PATIENTS. CBC (HEMOGRAM ONLY)2017-07-13 01:31:00 Test Item Value Reference Range Comments WHITE BLOOD CELL COUNT (BEAKER) (test varr=185) 7.9 K/ L 3.5-10.5 RED BLOOD CELL COUNT (BEAKER) (test ajbg=983) 3.16 M/ L 4.63-6.08 HEMOGLOBIN (BEAKER) (test qvkp=527) 10.4 GM/DL 13.7-17.5 HEMATOCRIT (BEAKER) (test bjaq=364) 30.1 % 40.1-51.0 MEAN CORPUSCULAR VOLUME (BEAKER) (test wxon=512) 95.3 fL 79.0-92.2 MEAN CORPUSCULAR HEMOGLOBIN (BEAKER) (test 32.9 pg 25.7-32.2 mtht=268) MEAN CORPUSCULAR HEMOGLOBIN CONC (BEAKER) (test 34.6 GM/DL 32.3-36.5 fbej=988) RED CELL DISTRIBUTION WIDTH (BEAKER) (test 13.0 % 11.6-14.4 ztnq=938) PLATELET COUNT (BEAKER) (test gsgi=853) 417 K/CU MM 150-450 MEAN PLATELET VOLUME (BEAKER) (test ushn=237) 8.9 fL 9.4-12.4 NUCLEATED RED BLOOD CELLS (BEAKER) (test 0 /100 WBC 0-0 sdwn=013) CREATINE KINASE (CK), TOTAL AND [id number] 23:45:00 Test Item Value Reference Range Comments CREATINE KINASE TOTAL (BEAKER) (test peal=450) 224 U/L 29-200 CREATINE KINASE-MB (BEAKER) (test ufdn=061) 2.8 ng/mL 0.0-6.6 CREATINE KINASE-MB INDEX (BEAKER) (test euzg=796) 1.3 % CK-MB Reference Range:<6.7 Normal6.7-10.0 Borderline>10.0 AbnormalTROPONIN [id number] 23:45:00 Test Item Value Reference Range Comments TROPONIN I (BEAKER) (test nwmu=733) 0.03 ng/mL 0.00-0.03 Troponin I (TnI) levels [...] failure, acidosis, acute neurological disease, and persistent tachyarrhythmia.[id number] 23:39:00 Test Item Value Reference Range Comments MAGNESIUM (BEAKER) (test jrze=580) 1.5 mg/dL 1.6-2.6 BASIC METABOLIC [id number] 23:39:00 Test Item Value Reference Range Comments SODIUM (BEAKER) (test 135 meq/L 136-145 vqjh=888) POTASSIUM (BEAKER) (test 3.7 meq/L 3.5-5.1 aajq=979) CHLORIDE (BEAKER) (test 100 meq/L 98-107 fvuf=283) CO2 (BEAKER) (test 27 meq/L 22-29 dctw=459) BLOOD UREA NITROGEN 4 mg/dL 7-21 (BEAKER) (test tofg=135) CREATININE (BEAKER) (test 0.54 mg/dL 0.57-1.25 xhjf=797) GLUCOSE RANDOM (BEAKER) 117 mg/dL 70-105 (test bebs=731) CALCIUM (BEAKER) (test 8.3 mg/dL 8.4-10.2 nkxv=146) EGFR (BEAKER) (test 150 mL/min/1.73 sq m ESTIMATED GFR IS NOT nfew=3757) ACCURATE CREATININE CLEARANCE IN PREDICTING GLOMERULAR FILTRATION RATE. ESTIMATED GFR IS NOT APPLICABLE FOR DIALYSIS PATIENTS. POCT-GLUCOSE [id number] 17:55:00 Test Item Value Reference Range Comments POC-GLUCOSE METER (BEAKER) 93 mg/dL 70-110 TESTED AT [address] (test wpid=6913) [place] [address] POCT-GLUCOSE [id number] 17:24:00 Test Item Value Reference Range Comments POC-GLUCOSE METER (BEAKER) 101 mg/dL 70-110 TESTED AT [address] (test hpjs=8672) [place] [address] POCT-GLUCOSE [id number] 06:58:00 Test Item Value Reference Range Comments POC-GLUCOSE METER (BEAKER) 116 mg/dL 70-110 TESTED AT [address] (test cfvu=6526) [place] [address] [id number] 06:07:00 Test Item Value Reference Range Comments PHOSPHORUS (BEAKER) (test ddnc=368) 2.3 mg/dL 2.3-4.7 [id number] 06:07:00 Test Item Value Reference Range Comments MAGNESIUM (BEAKER) (test otqm=443) 1.7 mg/dL 1.6-2.6 BASIC METABOLIC [id number] 06:07:00 Test Item Value Reference Range Comments SODIUM (BEAKER) (test 134 meq/L 136-145 imfk=387) POTASSIUM (BEAKER) (test 3.3 meq/L 3.5-5.1 uhta=662) CHLORIDE (BEAKER) (test 98 meq/L 98-107 dhii=951) CO2 (BEAKER) (test 28 meq/L 22-29 zsws=212) BLOOD UREA NITROGEN 4 mg/dL 7-21 (BEAKER) (test prmt=012) CREATININE (BEAKER) (test 0.57 mg/dL 0.57-1.25 yqso=082) GLUCOSE RANDOM (BEAKER) 94 mg/dL 70-105 (test xflr=126) CALCIUM (BEAKER) (test 8.6 mg/dL 8.4-10.2 njal=959) EGFR (BEAKER) (test 141 mL/min/1.73 sq m ESTIMATED GFR IS NOT gtsp=2851) ACCURATE CREATININE CLEARANCE IN PREDICTING GLOMERULAR FILTRATION RATE. ESTIMATED GFR IS NOT APPLICABLE FOR DIALYSIS PATIENTS. [id number] 05:55:00 Test Item Value Reference Range Comments PARTIAL THROMBOPLASTIN TIME (BEAKER) (test 81.2 seconds 22.5-36.0 aqjo=355) CBC (HEMOGRAM ONLY)2017-07-12 05:52:00 Test Item Value Reference Range Comments WHITE BLOOD CELL COUNT (BEAKER) (test mxjk=103) 10.9 K/ L 3.5-10.5 RED BLOOD CELL COUNT (BEAKER) (test keru=951) 3.63 M/ L 4.63-6.08 HEMOGLOBIN (BEAKER) (test zfcz=998) 11.8 GM/DL 13.7-17.5 HEMATOCRIT (BEAKER) (test phna=218) 35.3 % 40.1-51.0 MEAN CORPUSCULAR VOLUME (BEAKER) (test cuau=530) 97.2 fL 79.0-92.2 MEAN CORPUSCULAR HEMOGLOBIN (BEAKER) (test 32.5 pg 25.7-32.2 uelc=168) MEAN CORPUSCULAR HEMOGLOBIN CONC (BEAKER) (test 33.4 GM/DL 32.3-36.5 hdcr=845) RED CELL DISTRIBUTION WIDTH (BEAKER) (test 13.2 % 11.6-14.4 bepc=249) PLATELET COUNT (BEAKER) (test dcig=766) 406 K/CU MM 150-450 MEAN PLATELET VOLUME (BEAKER) (test uzle=187) 9.5 fL 9.4-12.4 NUCLEATED RED BLOOD CELLS (BEAKER) (test 0 /100 WBC 0-0 ddcr=098) POCT-GLUCOSE [id number] 23:45:00 Test Item Value Reference Range Comments POC-GLUCOSE METER (BEAKER) 110 mg/dL 70-110 TESTED AT [address] (test kitb=0487) [place] [address] [id number] 21:27:00 Test Item Value Reference Range Comments PARTIAL THROMBOPLASTIN TIME (BEAKER) (test 75.7 seconds 22.5-36.0 vphz=867) POCT-GLUCOSE [id number] 17:45:00 Test Item Value Reference Range Comments POC-GLUCOSE METER (BEAKER) 117 mg/dL 70-110 TESTED AT [address] (test yqwk=7227) [place] [address] [id number] 14:32:00 Test Item Value Reference Range Comments PARTIAL THROMBOPLASTIN TIME (BEAKER) (test 59.1 seconds 22.5-36.0 kdqm=264) POCT-GLUCOSE [id number] 12:34:00 Test Item Value Reference Range Comments POC-GLUCOSE METER (BEAKER) 104 mg/dL 70-110 TESTED AT [address] (test wwpq=3812) [place] [address] [id number] 07:53:00 Test Item Value Reference Range Comments PHOSPHORUS (BEAKER) (test fryr=509) 2.5 mg/dL 2.3-4.7 [id number] 07:53:00 Test Item Value Reference Range Comments MAGNESIUM (BEAKER) (test cwgj=679) 1.7 mg/dL 1.6-2.6 BASIC METABOLIC [id number] 07:53:00 Test Item Value Reference Range Comments SODIUM (BEAKER) (test 134 meq/L 136-145 ijrx=789) POTASSIUM (BEAKER) (test 3.6 meq/L 3.5-5.1 ybty=338) CHLORIDE (BEAKER) (test 99 meq/L 98-107 tfuc=399) CO2 (BEAKER) (test 26 meq/L 22-29 npgx=071) BLOOD UREA NITROGEN 3 mg/dL 7-21 (BEAKER) (test slnh=531) CREATININE (BEAKER) (test 0.57 mg/dL 0.57-1.25 kdot=386) GLUCOSE RANDOM (BEAKER) 98 mg/dL 70-105 (test jury=471) CALCIUM (BEAKER) (test 8.4 mg/dL 8.4-10.2 pnwk=753) EGFR (BEAKER) (test 141 mL/min/1.73 sq m ESTIMATED GFR IS NOT shsd=1564) ACCURATE CREATININE CLEARANCE IN PREDICTING GLOMERULAR FILTRATION RATE. ESTIMATED GFR IS NOT APPLICABLE FOR DIALYSIS PATIENTS. [id number] 07:31:00 Test Item Value Reference Range Comments PARTIAL THROMBOPLASTIN TIME (BEAKER) (test 65.4 seconds 22.5-36.0 yete=227) CBC (HEMOGRAM ONLY)2017-07-11 07:17:00 Test Item Value Reference Range Comments WHITE BLOOD CELL COUNT (BEAKER) (test jegg=003) 10.9 K/ L 3.5-10.5 RED BLOOD CELL COUNT (BEAKER) (test mftq=159) 3.66 M/ L 4.63-6.08 HEMOGLOBIN (BEAKER) (test bveb=773) 12.0 GM/DL 13.7-17.5 HEMATOCRIT (BEAKER) (test omxm=637) 36.3 % 40.1-51.0 MEAN CORPUSCULAR VOLUME (BEAKER) (test ksda=833) 99.2 fL 79.0-92.2 MEAN CORPUSCULAR HEMOGLOBIN (BEAKER) (test 32.8 pg 25.7-32.2 ijzj=522) MEAN CORPUSCULAR HEMOGLOBIN CONC (BEAKER) (test 33.1 GM/DL 32.3-36.5 pojt=344) RED CELL DISTRIBUTION WIDTH (BEAKER) (test 13.4 % 11.6-14.4 mjmd=761) PLATELET COUNT (BEAKER) (test jtnm=787) 373 K/CU MM 150-450 MEAN PLATELET VOLUME (BEAKER) (test misq=211) 9.3 fL 9.4-12.4 NUCLEATED RED BLOOD CELLS (BEAKER) (test 0 /100 WBC 0-0 taeb=161) [id number] 00:35:00 Test Item Value Reference Range Comments PARTIAL THROMBOPLASTIN TIME (BEAKER) (test 112.1 seconds 22.5-36.0 lrpc=369) [id number] 19:22:00 Test Item Value Reference Range Comments PARTIAL THROMBOPLASTIN TIME (BEAKER) (test 62.3 seconds 22.5-36.0 toui=672) POCT-GLUCOSE [id number] 18:01:00 Test Item Value Reference Range Comments POC-GLUCOSE METER (BEAKER) 101 mg/dL 70-110 TESTED AT [address] (test yfmt=7408) [place] [address] [id number] 17:27:00 Test Item Value Reference Range Comments PARTIAL THROMBOPLASTIN TIME (BEAKER) (test 132.8 seconds 22.5-36.0 hmjf=396) POCT-GLUCOSE [id number] 11:28:00 Test Item Value Reference Range Comments POC-GLUCOSE METER (BEAKER) 105 mg/dL 70-110 TESTED AT [address] (test dlvo=7729) [place] [address] [id number] 09:30:00 Test Item Value Reference Range Comments PARTIAL THROMBOPLASTIN TIME (BEAKER) (test 47.3 seconds 22.5-36.0 zhec=494) Prior to initiating [id number] 06:09:00 Test Item Value Reference Range Comments PHOSPHORUS (BEAKER) (test ktni=427) 1.8 mg/dL 2.3-4.7 [id number] 06:09:00 Test Item Value Reference Range Comments MAGNESIUM (BEAKER) (test hftx=099) 1.9 mg/dL 1.6-2.6 BASIC METABOLIC [id number] 06:09:00 Test Item Value Reference Range Comments SODIUM (BEAKER) (test 133 meq/L 136-145 dpbb=130) POTASSIUM (BEAKER) (test 3.9 meq/L 3.5-5.1 scsw=789) CHLORIDE (BEAKER) (test 103 meq/L 98-107 ahwn=525) CO2 (BEAKER) (test 22 meq/L 22-29 echi=960) BLOOD UREA NITROGEN 4 mg/dL 7-21 (BEAKER) (test zehb=737) CREATININE (BEAKER) (test 0.57 mg/dL 0.57-1.25 pyka=076) GLUCOSE RANDOM (BEAKER) 98 mg/dL 70-105 (test zjcl=668) CALCIUM (BEAKER) (test 8.0 mg/dL 8.4-10.2 datj=705) EGFR (BEAKER) (test 141 mL/min/1.73 sq m ESTIMATED GFR IS NOT boke=4003) ACCURATE CREATININE CLEARANCE IN PREDICTING GLOMERULAR FILTRATION RATE. ESTIMATED GFR IS NOT APPLICABLE FOR DIALYSIS PATIENTS. CBC (HEMOGRAM ONLY)2017-07-10 04:55:00 Test Item Value Reference Range Comments WHITE BLOOD CELL COUNT (BEAKER) (test okrx=897) 11.8 K/ L 3.5-10.5 RED BLOOD CELL COUNT (BEAKER) (test aqfg=789) 3.18 M/ L 4.63-6.08 HEMOGLOBIN (BEAKER) (test hjgg=134) 10.5 GM/DL 13.7-17.5 HEMATOCRIT (BEAKER) (test xtwa=489) 30.3 % 40.1-51.0 MEAN CORPUSCULAR VOLUME (BEAKER) (test zevp=949) 95.3 fL 79.0-92.2 MEAN CORPUSCULAR HEMOGLOBIN (BEAKER) (test 33.0 pg 25.7-32.2 eupm=675) MEAN CORPUSCULAR HEMOGLOBIN CONC (BEAKER) (test 34.7 GM/DL 32.3-36.5 rsjq=484) RED CELL DISTRIBUTION WIDTH (BEAKER) (test 13.1 % 11.6-14.4 tlda=799) PLATELET COUNT (BEAKER) (test fwok=833) 420 K/CU MM 150-450 MEAN PLATELET VOLUME (BEAKER) (test kfqx=420) 9.4 fL 9.4-12.4 NUCLEATED RED BLOOD CELLS (BEAKER) (test 0 /100 WBC 0-0 lnrq=162) [id number] 19:26:00 Test Item Value Reference Range Comments PHOSPHORUS (BEAKER) (test yjzr=920) 3.5 mg/dL 2.3-4.7 [id number] 19:26:00 Test Item Value Reference Range Comments MAGNESIUM (BEAKER) (test momh=860) 1.5 mg/dL 1.6-2.6 COMPREHENSIVE METABOLIC [id number] 19:26:00 Test Item Value Reference Range Comments TOTAL PROTEIN (BEAKER) 6.4 gm/dL 6.0-8.3 (test nhpa=959) ALBUMIN (BEAKER) (test 2.7 g/dL 3.5-5.0 dquw=5338) ALKALINE PHOSPHATASE 121 U/L 40-150 (BEAKER) (test mjxq=020) BILIRUBIN TOTAL (BEAKER) 0.5 mg/dL 0.2-1.2 (test yzyy=756) SODIUM (BEAKER) (test 135 meq/L 136-145 lcru=939) POTASSIUM (BEAKER) (test 3.3 meq/L 3.5-5.1 lohe=748) CHLORIDE (BEAKER) (test 106 meq/L 98-107 cyof=973) CO2 (BEAKER) (test 22 meq/L 22-29 tsri=916) BLOOD UREA NITROGEN 6 mg/dL 7-21 (BEAKER) (test ntjt=437) CREATININE (BEAKER) (test 0.55 mg/dL 0.57-1.25 dntz=033) GLUCOSE RANDOM (BEAKER) 108 mg/dL 70-105 (test amvk=675) CALCIUM (BEAKER) (test 8.5 mg/dL 8.4-10.2 zcpu=798) AST (SGOT) (BEAKER) (test 27 U/L 5-34 grwt=234) ALT (SGPT) (BEAKER) (test 16 U/L 6-55 unde=429) EGFR (BEAKER) (test 147 mL/min/1.73 sq ESTIMATED GFR IS NOT zwhf=2004) m ACCURATE CREATININE CLEARANCE IN PREDICTING GLOMERULAR FILTRATION RATE. ESTIMATED GFR IS NOT APPLICABLE FOR DIALYSIS PATIENTS. CBC W/PLT COUNT & AUTO [id number] 19:24:00 Test Item Value Reference Range Comments WHITE BLOOD CELL COUNT (BEAKER) (test vzyw=169) 15.2 K/ L 3.5-10.5 RED BLOOD CELL COUNT (BEAKER) (test neew=952) 3.37 M/ L 4.63-6.08 HEMOGLOBIN (BEAKER) (test rfbs=598) 11.1 GM/DL 13.7-17.5 HEMATOCRIT (BEAKER) (test eacz=439) 32.7 % 40.1-51.0 MEAN CORPUSCULAR VOLUME (BEAKER) (test ofkq=007) 97.0 fL 79.0-92.2 MEAN CORPUSCULAR HEMOGLOBIN (BEAKER) (test 32.9 pg 25.7-32.2 bzpi=287) MEAN CORPUSCULAR HEMOGLOBIN CONC (BEAKER) (test 33.9 GM/DL 32.3-36.5 eito=687) RED CELL DISTRIBUTION WIDTH (BEAKER) (test 13.1 % 11.6-14.4 srgo=628) PLATELET COUNT (BEAKER) (test xsbq=690) 428 K/CU MM 150-450 MEAN PLATELET VOLUME (BEAKER) (test nmwv=474) 9.3 fL 9.4-12.4 NUCLEATED RED BLOOD CELLS (BEAKER) (test 0 /100 WBC 0-0 fsyx=422) NEUTROPHILS RELATIVE PERCENT (BEAKER) (test 80 % bjcg=298) LYMPHOCYTES RELATIVE PERCENT (BEAKER) (test 14 % wimf=180) MONOCYTES RELATIVE PERCENT (BEAKER) (test 4 % dzws=512) EOSINOPHILS RELATIVE PERCENT (BEAKER) (test 0 % zxov=680) BASOPHILS RELATIVE PERCENT (BEAKER) (test 0 % wetg=091) NEUTROPHILS ABSOLUTE COUNT (BEAKER) (test 12.19 K/ L 1.78-5.38 rueu=042) LYMPHOCYTES ABSOLUTE COUNT (BEAKER) (test 2.11 K/ L 1.32-3.57 dgnd=563) MONOCYTES ABSOLUTE COUNT (BEAKER) (test 0.66 K/ L 0.30-0.82 wzdh=484) EOSINOPHILS ABSOLUTE COUNT (BEAKER) (test 0.03 K/ L 0.04-0.54 glkk=714) BASOPHILS ABSOLUTE COUNT (BEAKER) (test 0.06 K/ L 0.01-0.08 fkqg=933) IMMATURE GRANULOCYTES-RELATIVE PERCENT (BEAKER) 1 % 0-1 (test pjzz=4654) PROTHROMBIN TIME/[id number] 18:59:00 Test Item Value Reference Range Comments PROTIME (BEAKER) (test pqbr=883) 14.6 seconds 11.7-14.7 INR (BEAKER) (test zxlp=731) 1.1 <=5.9 RECOMMENDED COUMADIN/WARFARIN INR THERAPY RANGESSTANDARD DOSE: 2.0 - 3.0 Includes: PROPHYLAXIS forvenous thrombosis, systemic embolization; TREATMENT for venous thrombosis and/or pulmonary embolus.HIGH RISK: Target INR is 2.5-3.5 for patients with mechanical heart valves.[id number] 18:59:00 Test Item Value Reference Range Comments PARTIAL THROMBOPLASTIN TIME (BEAKER) (test 37.7 seconds 22.5-36.0 xubt=115) BLOOD GAS, [id number] 18:46:00 Test Item Value Reference Range Comments PH ARTERIAL (BEAKER) (test utvz=449) 7.34 7.35-7.45 PCO2 ARTERIAL (BEAKER) (test ajnc=634) 43 mmHg 35-45 PO2 ARTERIAL (BEAKER) (test pzve=308) 86 mmHg 80-90 O2 SATURATION ARTERIAL (BEAKER) (test tooy=957) 96.0 % 96.0-97.0 HCO3 ARTERIAL (BEAKER) (test pivw=689) 23 mmol/L 21-29 BASE EXCESS ARTERIAL (BEAKER) (test yyzl=248) -3.2 mmol/L -2.0-3.0 PATIENT TEMPERATURE (BEAKER) (test kglf=3358) 37.0 C FIO2 (BEAKER) (test oqoq=2302) 36.0 % POCT-GLUCOSE [id number] 18:10:00 Test Item Value Reference Range Comments POC-GLUCOSE METER (BEAKER) 116 mg/dL 70-110 TESTED AT [address] (test cfti=6226) [place] [address] [id number] 16:58:00 Test Item Value Reference Range Comments ACTIVATED CLOTTING TIME 142 sec TESTED AT [address] ([facility] (test yfag=934) [place] [address] [id number] 16:58:00 Test Item Value Reference Range Comments ACTIVATED CLOTTING TIME 230 sec TESTED AT [address] ([facility] (test vlbd=546) [place] [address] [id number] 16:58:00 Test Item Value Reference Range Comments ACTIVATED CLOTTING TIME 208 sec TESTED AT [address] ([facility]) (test bakx=169) [place] [address] [id number] 16:57:00 Test Item Value Reference Range Comments ACTIVATED CLOTTING TIME 268 sec TESTED AT [facility] [address] (BEAKER) (test bqtp=413) [place] [id number] 13:32:00 Test Item Value Reference Range Comments SODIUM (BEAKER) (test cxzw=934) 134 meq/L 136-145 POTASSIUM (BEAKER) (test wxtz=920) 3.9 meq/L 3.5-5.1 CHLORIDE (BEAKER) (test dxbj=909) 98 meq/L 98-107 CO2 (BEAKER) (test tmxb=918) 27 meq/L 22-29 POCT-GLUCOSE [id number] 12:08:00 Test Item Value Reference Range Comments POC-GLUCOSE METER (BEAKER) 80 mg/dL 70-110 [facility]ED [facility] [address] [facility] (test odrx=0929) [place] [address] [id number] 05:22:00 Test Item Value Reference Range Comments PHOSPHORUS (BEAKER) (test djdw=841) 3.1 mg/dL 2.3-4.7 [id number] 05:22:00 Test Item Value Reference Range Comments MAGNESIUM (BEAKER) (test aysu=976) 1.6 mg/dL 1.6-2.6 BASIC METABOLIC [id number] 05:22:00 Test Item Value Reference Range Comments SODIUM (BEAKER) (test 131 meq/L 136-145 uqyn=069) POTASSIUM (BEAKER) (test 3.2 meq/L 3.5-5.1 vvzs=771) CHLORIDE (BEAKER) (test 96 meq/L 98-107 sdte=220) CO2 (BEAKER) (test 25 meq/L 22-29 vtad=761) BLOOD UREA NITROGEN 9 mg/dL 7-21 (BEAKER) (test jpha=490) CREATININE (BEAKER) (test 0.61 mg/dL 0.57-1.25 fiba=394) GLUCOSE RANDOM (BEAKER) 63 mg/dL 70-105 (test fzgs=642) CALCIUM (BEAKER) (test 9.3 mg/dL 8.4-10.2 evrb=222) EGFR (BEAKER) (test 131 mL/min/1.73 sq m ESTIMATED GFR IS NOT lxpz=1321) ACCURATE CREATININE CLEARANCE IN PREDICTING GLOMERULAR FILTRATION RATE. ESTIMATED GFR IS NOT APPLICABLE FOR DIALYSIS PATIENTS. [id number] 05:21:00 Test Item Value Reference Range Comments PROTIME (BEAKER) (test vjoi=930) 14.6 seconds 11.7-14.7 INR (BEAKER) (test qfyl=192) 1.2 <=5.9 PARTIAL THROMBOPLASTIN TIME (BEAKER) (test 39.3 seconds 22.5-36.0 mivp=706) RECOMMENDED COUMADIN/WARFARIN INR THERAPY RANGESSTANDARD DOSE: 2.0 - 3.0 Includes: PROPHYLAXIS forvenous thrombosis, systemic embolization; TREATMENT for venous thrombosis and/or pulmonary embolus.HIGH RISK: Target INR is 2.5-3.5 for patients with mechanical heart valves.CBC W/PLT COUNT & AUTO [id number] 05:03:00 Test Item Value Reference Range Comments WHITE BLOOD CELL COUNT (BEAKER) (test pscw=858) 10.2 K/ L 3.5-10.5 RED BLOOD CELL COUNT (BEAKER) (test pjmt=743) 3.69 M/ L 4.63-6.08 HEMOGLOBIN (BEAKER) (test soil=206) 12.4 GM/DL 13.7-17.5 HEMATOCRIT (BEAKER) (test salx=617) 35.2 % 40.1-51.0 MEAN CORPUSCULAR VOLUME (BEAKER) (test cdsq=846) 95.4 fL 79.0-92.2 MEAN CORPUSCULAR HEMOGLOBIN (BEAKER) (test 33.6 pg 25.7-32.2 iekk=465) MEAN CORPUSCULAR HEMOGLOBIN CONC (BEAKER) (test 35.2 GM/DL 32.3-36.5 lomv=852) RED CELL DISTRIBUTION WIDTH (BEAKER) (test 12.1 % 11.6-14.4 nhiw=478) PLATELET COUNT (BEAKER) (test blgj=140) 389 K/CU MM 150-450 MEAN PLATELET VOLUME (BEAKER) (test yqgi=448) 9.9 fL 9.4-12.4 NUCLEATED RED BLOOD CELLS (BEAKER) (test 0 /100 WBC 0-0 lzrj=979) NEUTROPHILS RELATIVE PERCENT (BEAKER) (test 69 % ijeh=120) LYMPHOCYTES RELATIVE PERCENT (BEAKER) (test 18 % gyhi=901) MONOCYTES RELATIVE PERCENT (BEAKER) (test 10 % ysha=440) EOSINOPHILS RELATIVE PERCENT (BEAKER) (test 1 % vmdr=605) BASOPHILS RELATIVE PERCENT (BEAKER) (test 1 % zwvj=797) NEUTROPHILS ABSOLUTE COUNT (BEAKER) (test 7.01 K/ L 1.78-5.38 ermy=238) LYMPHOCYTES ABSOLUTE COUNT (BEAKER) (test 1.85 K/ L 1.32-3.57 palp=935) MONOCYTES ABSOLUTE COUNT (BEAKER) (test 1.06 K/ L 0.30-0.82 pamx=827) EOSINOPHILS ABSOLUTE COUNT (BEAKER) (test 0.13 K/ L 0.04-0.54 curi=074) BASOPHILS ABSOLUTE COUNT (BEAKER) (test 0.07 K/ L 0.01-0.08 vyyt=699) IMMATURE GRANULOCYTES-RELATIVE PERCENT (BEAKER) 0 % 0-1 (test ioqv=2439) POCT-GLUCOSE [id number] 16:38:00 Test Item Value Reference Range Comments POC-GLUCOSE METER (BEAKER) 106 mg/dL 70-110 TESTED AT [facility] [address] [facility] (test qqwe=5878) [facility] [address] [id number] 06:15:00 Test Item Value Reference Range Comments PARTIAL THROMBOPLASTIN TIME (BEAKER) (test 40.6 seconds 22.5-36.0 gpcp=663) PROTHROMBIN [id number] 06:14:00 Test Item Value Reference Range Comments PROTIME (BEAKER) (test olpv=553) 15.5 seconds 11.7-14.7 INR (BEAKER) (test rtcs=822) 1.2 <=5.9 RECOMMENDED COUMADIN/WARFARIN INR THERAPY RANGESSTANDARD DOSE: 2.0 - 3.0 Includes: PROPHYLAXIS forvenous thrombosis, systemic embolization; TREATMENT for venous thrombosis and/or pulmonary embolus.HIGH RISK: Target INR is 2.5-3.5 for patients with mechanical heart valves.PROTHROMBIN [id number] 07:07: 00 Test Item Value Reference Range Comments PROTIME (BEAKER) (test iysu=964) 15.4 seconds 11.7-14.7 INR (BEAKER) (test eawv=118) 1.2 <=5.9 RECOMMENDED COUMADIN/WARFARIN INR THERAPY RANGESSTANDARD DOSE: 2.0 - 3.0 Includes: PROPHYLAXIS forvenous thrombosis, systemic embolization; TREATMENT for venous thrombosis and/or pulmonary embolus.HIGH RISK: Target INR is 2.5-3.5 for patients with mechanical heart valves.[id number] 07:07:00 Test Item Value Reference Range Comments PARTIAL THROMBOPLASTIN TIME (BEAKER) (test 33.4 seconds 22.5-36.0 cjyx=737) RAD, CHEST, 1 VIEW, NON [id number] 01:35:00Reason for exam:->preopShould this be performed at the bedside?->YesFINAL REPORT Comparison examination: None No pneumothorax, focal pulmonary consolidation, or significant pleural effusion. Normal cardiomediastinal contours. Demineralized skeleton. Multiple old healed left rib fractures. Normal soft tissues. Impression: No acute abnormality. Signed: Edmar Carmona MDReport Verified Date/Time: 06/28/2017 01:35:21 Reading Location: [address] Ortho Consult Reading Room Electronically signed by: EDMAR CARMONA M.D. on 06/28 01:35 AMBASIC METABOLIC [id number] 00:18:00 Test Item Value Reference Range Comments SODIUM (BEAKER) (test 133 meq/L 136-145 oilj=494) POTASSIUM (BEAKER) (test 3.8 meq/L 3.5-5.1 Specimen slightly ahia=600) hemolyzed CHLORIDE (BEAKER) (test 99 meq/L 98-107 mknv=975) CO2 (BEAKER) (test 25 meq/L 22-29 blrq=186) BLOOD UREA NITROGEN 5 mg/dL 7-21 (BEAKER) (test iqmq=282) CREATININE (BEAKER) (test 0.71 mg/dL 0.57-1.25 Specimen slightly znon=815) hemolyzed GLUCOSE RANDOM (BEAKER) 96 mg/dL 70-105 (test jxul=428) CALCIUM (BEAKER) (test 9.4 mg/dL 8.4-10.2 bhag=206) EGFR (BEAKER) (test 110 mL/min/1.73 sq m ESTIMATED GFR IS NOT hxtj=4535) ACCURATE CREATININE CLEARANCE IN PREDICTING GLOMERULAR FILTRATION RATE. ESTIMATED GFR IS NOT APPLICABLE FOR DIALYSIS PATIENTS. [id number] 00:08:00 Test Item Value Reference Range Comments PARTIAL THROMBOPLASTIN TIME (BEAKER) (test 38.7 seconds 22.5-36.0 mwnl=246) PROTHROMBIN [id number] 00:07:00 Test Item Value Reference Range Comments PROTIME (BEAKER) (test ifvx=543) 13.6 seconds 11.7-14.7 INR (BEAKER) (test ykih=258) 1.1 <=5.9 RECOMMENDED COUMADIN/WARFARIN INR THERAPY RANGESSTANDARD DOSE: 2.0 - 3.0 Includes: PROPHYLAXIS forvenous thrombosis, systemic embolization; TREATMENT for venous thrombosis and/or pulmonary embolus.HIGH RISK: Target INR is 2.5-3.5 for patients with mechanical heart valves.CBC W/PLT COUNT & AUTO [id number] 23:56:00 Test Item Value Reference Range Comments WHITE BLOOD CELL COUNT (BEAKER) (test ufth=610) 9.8 K/ L 3.5-10.5 RED BLOOD CELL COUNT (BEAKER) (test hypb=785) 4.08 M/ L 4.63-6.08 HEMOGLOBIN (BEAKER) (test rxxt=597) 13.7 GM/DL 13.7-17.5 HEMATOCRIT (BEAKER) (test wvgb=813) 40.0 % 40.1-51.0 MEAN CORPUSCULAR VOLUME (BEAKER) (test mpnv=731) 98.0 fL 79.0-92.2 MEAN CORPUSCULAR HEMOGLOBIN (BEAKER) (test 33.6 pg 25.7-32.2 vhed=698) MEAN CORPUSCULAR HEMOGLOBIN CONC (BEAKER) (test 34.3 GM/DL 32.3-36.5 kjrl=120) RED CELL DISTRIBUTION WIDTH (BEAKER) (test 12.6 % 11.6-14.4 fsof=921) PLATELET COUNT (BEAKER) (test akev=198) 408 K/CU MM 150-450 MEAN PLATELET VOLUME (BEAKER) (test umxs=798) 9.0 fL 9.4-12.4 NUCLEATED RED BLOOD CELLS (BEAKER) (test 0 /100 WBC 0-0 tadw=158) NEUTROPHILS RELATIVE PERCENT (BEAKER) (test 61 % nmph=601) LYMPHOCYTES RELATIVE PERCENT (BEAKER) (test 29 % brxw=428) MONOCYTES RELATIVE PERCENT (BEAKER) (test 8 % nenz=369) EOSINOPHILS RELATIVE PERCENT (BEAKER) (test 1 % araa=142) BASOPHILS RELATIVE PERCENT (BEAKER) (test 1 % ffhg=942) NEUTROPHILS ABSOLUTE COUNT (BEAKER) (test 5.98 K/ L 1.78-5.38 pnka=720) LYMPHOCYTES ABSOLUTE COUNT (BEAKER) (test 2.81 K/ L 1.32-3.57 prxa=350) MONOCYTES ABSOLUTE COUNT (BEAKER) (test 0.82 K/ L 0.30-0.82 rcto=202) EOSINOPHILS ABSOLUTE COUNT (BEAKER) (test 0.13 K/ L 0.04-0.54 jncr=291) BASOPHILS ABSOLUTE COUNT (BEAKER) (test 0.08 K/ L 0.01-0.08 pnbq=965) IMMATURE GRANULOCYTES-RELATIVE PERCENT (BEAKER) 0 % 0-1 (test qdzh=6394)
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
[2018-06-04] MEDS ORDERED: TETANUS & DIPHTHERIA TOX,ADULT 0.5 ML VIAL ONE (19:40)
[2018-06-04] MEDS ORDERED: NA CHLORIDE 0.9% 1,000 ML ONE (19:40)
[2018-06-04] MEDS ORDERED: THIAMINE 200 MG/2 ML INJ ONE (19:40)
[2018-06-04] MEDS ORDERED: CEFAZOLIN/SWI 1gm 1 GM/10 ML SYR ONE (19:41)
--- NOTE | 2018-06-04 19:44 | RAD REPORT ---
EXAM DESCRIPTION: RAD - Chest Single View - 06/04/2018 7:28 pm CLINICAL HISTORY: COUGH Chest pain. COMPARISON: Chest Pa And Lat (2 Views) dated 02/08/2018; Chest Single View dated 06/27/2017 FINDINGS: Portable technique limits examination quality. The lungs are emphysematous but grossly clear. The heart is normal in size. No displaced fractures.Ce rvical hardware plate noted. IMPRESSION: COPD.
--- NOTE | 2018-06-04 19:46 | RAD REPORT ---
EXAM DESCRIPTION: CT - CTFB CLINICAL HISTORY: FACIAL PAIN COMPARISON: No comparisons TECHNIQUE: Axial 2 mm thick images of the face were obtained with sagittal and coronal reconstructio n images. All CT scans are performed using dose optimization technique as appropriate and may include automated exposure control or mA/KV adjustment according to patient size. FINDINGS: Mildly comminuted nasal bone fracture is seen. The adjacent soft tissues are edematous and swollen.No additional facial bone fracture is identified.The mandible is intact. The globes and orbital contents are grossly unremarkable.The paranasal sinuses and mastoids are clear . Evidence of previous right uncinectomy and turbinectomy. IMPRESSION: Mildly comminuted nasal bone fracture.
[2018-06-04 19:47] LABS: Barbiturates NEGATIVE (NEGATIVE); Benzodiazepines NEGATIVE (NEGATIVE); Cocaine NEGATIVE (NEGATIVE); METHAMPHETAM NEGATIVE (NEGATIVE); Methadone NEGATIVE (NEGATIVE); Opiates NEGATIVE (NEGATIVE); Phencyclidine NEGATIVE (NEGATIVE); THC Cannibis NEGATIVE (NEGATIVE)
[2018-06-04 19:59] LABS: Absolute Lymphocytes (CBC) 2.7 K/uL (0.7-4.9); Absolute Monocytes 0.7 K/uL (0.1-1.3); Absolute Neutrophil 6.1 K/uL (1.8-8.0); Basophils % 0.9 % (0-1.3); Eosinophils % 1.6 % (0-4.4); Hematocrit 43.8 % (39.6-49.0); Lymphocytes % 27.5 % (15.3-44.8); MCH 33.6 pg (27.0-35.0); MCV 95.4 fL (80-100); MPV 7.6 fL (7.6-11.3); Monocytes % 6.8 % (3.3-12.3)
[2018-06-04 20:11] LABS: Protime INR 0.97
[2018-06-04 20:16] LABS: Urine Blood TRACE (NEG); Urine Glucose NEGATIVE (NEG); Urine Protein NEGATIVE (NEG); Urine Specific Gravity <1.005 (1.005-1.030); Urine pH 5.5 (5.0-7.0)
[2018-06-04 20:32] LABS: ALT/SGPT 25 U/L (12-78); AST/SGOT 30 U/L (15-37); Albumin 3.4 g/dL (3.4-5.0); Alkaline Phosphatase 163 U/L (45-117); BUN Blood Urea Nitrogen 2 mg/dL (7-18); Bicarbonate 26 mmol/L (21-32); Bilirubin Direct 0.1 mg/dL (0-0.2); Bilirubin Total 0.3 mg/dL (0.2-1.0); Glucose Level 82 mg/dL (74-106); Magnesium 2.3 mg/dL (1.8-2.4); NT PRO-BNP 528 pg/mL (<125); Potassium 4.2 mmol/L (3.5-5.1); Protein, Total 7.8 g/dL (6.4-8.2); Sodium Level 131 mmol/L (136-145); Troponin (Emerg Dept Use Only) < 0.02 ng/mL (0.0-0.045)
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
[2018-06-04 22:50] VITALS: TEMP 98
[2018-06-04 22:55] VITALS: BP 140/59; O2SAT 98
--- NOTE | 2018-06-05 06:50 | EKG ---
Test Date: 2018-06-04 Test Time: 19:52:22 Manager Customer Service: DAVID MEASUREMENT RESULTS: Intervals: Rate: 53 NC: 160 QRSD: 102 QT: 514 QTc: 482 [place]: P: 59 NC: 160 QRS: 46 T: 56 INTERPRETIVE STATEMENTS: Sinus bradycardia Incomplete right bundle branch block Septal infarct, age undetermined Abnormal ECG Compared to ECG 06/27/2017 15:30:51 Incomplete right bundle-branch block now present Myocardial infarct finding now present Sinus rhythm no longer present ST (T wave) deviation no longer present Electronically Signed On 06-05-18 06:50:15 CDT by Olman Kurtz
== END 2018-06-04 22:17 | disposition home or self-care (01) ==
LOC: ER 18:16
DX: S01.81XA Laceration without foreign body of other part of head, initial encounter (principal); F10.129 Alcohol abuse with intoxication, unspecified; W18.00XA Striking against unspecified object with subsequent fall, initial encounter; Y93.89 Activity, other specified; Y92.9 Unspecified place or not applicable; Z23 Encounter for immunization; Z87.820 Personal history of traumatic brain injury; Z79.82 Long term (current) use of aspirin; I10 Essential (primary) hypertension
CPT/HCPCS: 36415; 70450; 70486; 71045; 71250; 72125; 76377; 80053; 80307 ×8; 80320; 80329 ×2; 81003; 82248; 83735; 83880; 84484; 85025; 85610; 85730; 90714; 93005; J0690; J3411; J7030; 96361; 96365; 96368; 99284

== ENCOUNTER 2019-10-12 10:59 | Inpatient (IN) | payer OTHER ==
--- OUTSIDE RECORDS SUMMARY | 2019-10-12 11:04 | XMS REPORT ---
:1945 [facility] Address [address] [place] [address] Care Team Providers Name Role Phone STEPHANIE BONE Unavailable Unavailable EMORYBARBER Unavailable Unavailable Problems This patient has no known problems. Allergies, Adverse Reactions, Alerts This patient has no known allergies or adverse reactions. Medications This patient has no known medications. Results Test Description Test Time Test Comments Text Results Atomic Results Result Comments TISSUE EXAM 2017-07-30 11:00:00 Surgical Pathology Report Case: [id number] Authorizing Provider: Stephanie Bone MD Collected: 07/22/2017 1348 Ordering Location: [facility] PERIOPERATIVE Received: 07/23/2017 0851 SERVICES Pathologist: Marquis Carolina MD Specimen: Leg, Right, RIGHT ABOVE KNEE AMPUTATION BONE AND SOFT TISSUE, RIGHT LEG, AMPUTATION: -GANGRENOUS NECROSIS -BONE AND SOFT TISSUE MARGINS VIABLE Signing Pathologist Direct Phone Line: [phone] signed by Marquis Carolina MD on 07/30/2017 at 11:00 [id number] leg acute ischemiaRight above-knee amputation The specimen is received in a biohazard bag labeled with the patient's information and labeled "right above-knee amputation" and consists of a right jzlqb-hxd-smni amputation with exposed femur measuring 7 cm [...] (BEAKER) (test 100 mg/dL 70-110 TESTED AT [facility] [address] [facility] mhyi=2268) [facility] [address] [id number] 09:25:00 Test Item Value Reference Range Comments PHOSPHORUS (BEAKER) (test kelg=415) 2.8 mg/dL 2.3-4.7 [id number] 09:25:00 Test Item Value Reference Range Comments MAGNESIUM (BEAKER) (test bich=174) 1.9 mg/dL 1.6-2.6 BASIC METABOLIC [id number] 09:25:00 Test Item Value Reference Range Comments SODIUM (BEAKER) (test 129 meq/L 136-145 thzr=438) POTASSIUM (BEAKER) (test 4.5 meq/L 3.5-5.1 zjof=264) CHLORIDE (BEAKER) (test 98 meq/L 98-107 lokf=002) CO2 (BEAKER) (test 23 meq/L 22-29 bgge=769) BLOOD UREA NITROGEN 10 mg/dL 7-21 (BEAKER) (test qdbw=210) CREATININE (BEAKER) (test 0.57 mg/dL 0.57-1.25 hart=872) GLUCOSE RANDOM (BEAKER) 92 mg/dL 70-105 (test mzdb=985) CALCIUM (BEAKER) (test 8.7 mg/dL 8.4-10.2 huge=737) EGFR (BEAKER) (test 141 mL/min/1.73 sq m ESTIMATED GFR IS NOT odkr=2686) ACCURATE CREATININE CLEARANCE IN PREDICTING GLOMERULAR FILTRATION RATE. ESTIMATED GFR IS NOT APPLICABLE FOR DIALYSIS PATIENTS. POCT-GLUCOSE [id number] 08:41:00 Test Item Value Reference Range Comments POC-GLUCOSE METER (BEAKER) 94 mg/dL 70-110 TESTED AT [address] (test mugx=0892) [facility] [address] CBC (HEMOGRAM ONLY)2017-07-25 07:20:00 Test Item Value Reference Range Comments WHITE BLOOD CELL COUNT (BEAKER) (test necp=639) 10.3 K/ L 3.5-10.5 RED BLOOD CELL COUNT (BEAKER) (test cokt=413) 3.19 M/ L 4.63-6.08 HEMOGLOBIN (BEAKER) (test fpuo=714) 10.0 GM/DL 13.7-17.5 HEMATOCRIT (BEAKER) (test fcil=251) 30.3 % 40.1-51.0 MEAN CORPUSCULAR VOLUME (BEAKER) (test wunt=241) 95.0 fL 79.0-92.2 MEAN CORPUSCULAR HEMOGLOBIN (BEAKER) (test 31.3 pg 25.7-32.2 igpi=080) MEAN CORPUSCULAR HEMOGLOBIN CONC (BEAKER) (test 33.0 GM/DL 32.3-36.5 hfky=942) RED CELL DISTRIBUTION WIDTH (BEAKER) (test 13.8 % 11.6-14.4 nsct=942) PLATELET COUNT (BEAKER) (test tlcs=495) 576 K/CU MM 150-450 MEAN PLATELET VOLUME (BEAKER) (test mhfd=814) 9.2 fL 9.4-12.4 NUCLEATED RED BLOOD CELLS (BEAKER) (test 0 /100 WBC 0-0 aqie=832) POCT-GLUCOSE [id number] 22:44:00 Test Item Value Reference Range Comments POC-GLUCOSE METER (BEAKER) 118 mg/dL 70-110 TESTED AT [address] (test iang=4512) [facility] [address] POCT-GLUCOSE [id number] 17:45:00 Test Item Value Reference Range Comments POC-GLUCOSE METER (BEAKER) 96 mg/dL 70-110 TESTED AT [address] (test ycwy=8604) [place] [id number] POCT-GLUCOSE [id number] 12:54:00 Test Item Value Reference Range Comments POC-GLUCOSE METER (BEAKER) 94 mg/dL 70-110 TESTED AT [facility] [address] [facility] (test hfsx=4180) [facility] [address] POCT-GLUCOSE [id number] 07:59:00 Test Item Value Reference Range Comments POC-GLUCOSE METER (BEAKER) 123 mg/dL 70-110 TESTED AT [facility] [address] [facility] (test lmoa=4652) [facility] [address] [id number] 07:44:00 Test Item Value Reference Range Comments MAGNESIUM (BEAKER) (test fadg=041) 1.8 mg/dL 1.6-2.6 [id number] 07:44:00 Test Item Value Reference Range Comments PHOSPHORUS (BEAKER) (test zlfm=808) 3.3 mg/dL 2.3-4.7 BASIC METABOLIC [id number] 07:44:00 Test Item Value Reference Range Comments SODIUM (BEAKER) (test 132 meq/L 136-145 wohr=520) POTASSIUM (BEAKER) (test 3.7 meq/L 3.5-5.1 tsym=740) CHLORIDE (BEAKER) (test 100 meq/L 98-107 mazm=562) CO2 (BEAKER) (test 26 meq/L 22-29 dgzf=581) BLOOD UREA NITROGEN 5 mg/dL 7-21 (BEAKER) (test nbuw=913) CREATININE (BEAKER) (test 0.56 mg/dL 0.57-1.25 bxrh=767) GLUCOSE RANDOM (BEAKER) 87 mg/dL 70-105 (test ssll=779) CALCIUM (BEAKER) (test 8.6 mg/dL 8.4-10.2 iymf=662) EGFR (BEAKER) (test 144 mL/min/1.73 sq m ESTIMATED GFR IS NOT aazi=0958) ACCURATE CREATININE CLEARANCE IN PREDICTING GLOMERULAR FILTRATION RATE. ESTIMATED GFR IS NOT APPLICABLE FOR DIALYSIS PATIENTS. CBC (HEMOGRAM ONLY)2017-07-24 07:38:00 Test Item Value Reference Range Comments WHITE BLOOD CELL COUNT (BEAKER) (test gebd=781) 10.1 K/ L 3.5-10.5 RED BLOOD CELL COUNT (BEAKER) (test nopk=710) 3.07 M/ L 4.63-6.08 HEMOGLOBIN (BEAKER) (test ybtd=951) 9.7 GM/DL 13.7-17.5 HEMATOCRIT (BEAKER) (test blte=907) 28.9 % 40.1-51.0 MEAN CORPUSCULAR VOLUME (BEAKER) (test epoa=707) 94.1 fL 79.0-92.2 MEAN CORPUSCULAR HEMOGLOBIN (BEAKER) (test 31.6 pg 25.7-32.2 kmjy=195) MEAN CORPUSCULAR HEMOGLOBIN CONC (BEAKER) (test 33.6 GM/DL 32.3-36.5 hvqp=080) RED CELL DISTRIBUTION WIDTH (BEAKER) (test 14.0 % 11.6-14.4 rvib=133) PLATELET COUNT (BEAKER) (test conh=182) 576 K/CU MM 150-450 MEAN PLATELET VOLUME (BEAKER) (test ofnq=160) 9.4 fL 9.4-12.4 NUCLEATED RED BLOOD CELLS (BEAKER) (test 0 /100 WBC 0-0 ndrj=733) POCT-GLUCOSE [id number] 21:18:00 Test Item Value Reference Range Comments POC-GLUCOSE METER (BEAKER) 122 mg/dL 70-110 TESTED AT [address] (test wwbf=1783) [place] [address] POCT-GLUCOSE [id number] 17:07:00 Test Item Value Reference Range Comments POC-GLUCOSE METER (BEAKER) 99 mg/dL 70-110 TESTED AT [address] (test lkug=9603) [place] [address] POCT-GLUCOSE [id number] 11:53:00 Test Item Value Reference Range Comments POC-GLUCOSE METER (BEAKER) 123 mg/dL 70-110 TESTED AT [address] (test nzxr=5810) [place] [address] POCT-GLUCOSE [id number] 08:08:00 Test Item Value Reference Range Comments POC-GLUCOSE METER (BEAKER) 124 mg/dL 70-110 TESTED AT [address] (test pmch=3838) [place] [address] [id number] 06:48:00 Test Item Value Reference Range Comments MAGNESIUM (BEAKER) (test 1.8 mg/dL 1.6-2.6 Specimen slightly hemolyzed atmz=929) [id number] 06:48:00 Test Item Value Reference Range Comments PHOSPHORUS (BEAKER) (test 3.5 mg/dL 2.3-4.7 Specimen slightly hemolyzed fbin=427) BASIC METABOLIC [id number] 06:48:00 Test Item Value Reference Range Comments SODIUM (BEAKER) (test 129 meq/L 136-145 yppj=725) POTASSIUM (BEAKER) (test 4.0 meq/L 3.5-5.1 Specimen slightly wmgc=755) hemolyzed CHLORIDE (BEAKER) (test 98 meq/L 98-107 lmzv=079) CO2 (BEAKER) (test 23 meq/L 22-29 uxrh=808) BLOOD UREA NITROGEN 5 mg/dL 7-21 (BEAKER) (test vjzs=881) CREATININE (BEAKER) (test 0.57 mg/dL 0.57-1.25 Specimen slightly khpx=853) hemolyzed GLUCOSE RANDOM (BEAKER) 123 mg/dL 70-105 (test ouqa=852) CALCIUM (BEAKER) (test 8.8 mg/dL 8.4-10.2 vvtk=414) EGFR (BEAKER) (test 141 mL/min/1.73 sq m ESTIMATED GFR IS NOT yyxi=0746) ACCURATE CREATININE CLEARANCE IN PREDICTING GLOMERULAR FILTRATION RATE. ESTIMATED GFR IS NOT APPLICABLE FOR DIALYSIS PATIENTS. CBC (HEMOGRAM ONLY)2017-07-23 06:23:00 Test Item Value Reference Range Comments WHITE BLOOD CELL COUNT (BEAKER) (test gnuc=946) 14.6 K/ L 3.5-10.5 RED BLOOD CELL COUNT (BEAKER) (test tmfu=348) 3.43 M/ L 4.63-6.08 HEMOGLOBIN (BEAKER) (test orju=357) 10.9 GM/DL 13.7-17.5 HEMATOCRIT (BEAKER) (test oouw=269) 32.2 % 40.1-51.0 MEAN CORPUSCULAR VOLUME (BEAKER) (test iliv=371) 93.9 fL 79.0-92.2 MEAN CORPUSCULAR HEMOGLOBIN (BEAKER) (test 31.8 pg 25.7-32.2 ethx=506) MEAN CORPUSCULAR HEMOGLOBIN CONC (BEAKER) (test 33.9 GM/DL 32.3-36.5 enew=034) RED CELL DISTRIBUTION WIDTH (BEAKER) (test 13.7 % 11.6-14.4 iwzz=547) PLATELET COUNT (BEAKER) (test ciah=614) 565 K/CU MM 150-450 MEAN PLATELET VOLUME (BEAKER) (test jspr=751) 9.5 fL 9.4-12.4 NUCLEATED RED BLOOD CELLS (BEAKER) (test 0 /100 WBC 0-0 mtan=318) POCT-GLUCOSE [id number] 07:35:00 Test Item Value Reference Range Comments POC-GLUCOSE METER (BEAKER) 106 mg/dL 70-110 TESTED AT [facility] [address] [facility] (test utif=3664) [facility] [address] [id number] 06:24:00 Test Item Value Reference Range Comments PHOSPHORUS (BEAKER) (test lysj=540) 3.3 mg/dL 2.3-4.7 [id number] 06:24:00 Test Item Value Reference Range Comments MAGNESIUM (BEAKER) (test kyxd=874) 1.9 mg/dL 1.6-2.6 BASIC METABOLIC [id number] 06:24:00 Test Item Value Reference Range Comments SODIUM (BEAKER) (test 131 meq/L 136-145 xhxg=018) POTASSIUM (BEAKER) (test 4.4 meq/L 3.5-5.1 vfze=337) CHLORIDE (BEAKER) (test 99 meq/L 98-107 oizt=710) CO2 (BEAKER) (test 24 meq/L 22-29 bvak=759) BLOOD UREA NITROGEN 3 mg/dL 7-21 (BEAKER) (test vsxc=898) CREATININE (BEAKER) (test 0.60 mg/dL 0.57-1.25 hxdp=901) GLUCOSE RANDOM (BEAKER) 101 mg/dL 70-105 (test nryf=701) CALCIUM (BEAKER) (test 8.7 mg/dL 8.4-10.2 orkh=985) EGFR (BEAKER) (test 133 mL/min/1.73 sq m ESTIMATED GFR IS NOT bgjs=9710) ACCURATE CREATININE CLEARANCE IN PREDICTING GLOMERULAR FILTRATION RATE. ESTIMATED GFR IS NOT APPLICABLE FOR DIALYSIS PATIENTS. CBC (HEMOGRAM ONLY)2017-07-22 06:15:00 Test Item Value Reference Range Comments WHITE BLOOD CELL COUNT (BEAKER) (test tgoc=919) 10.7 K/ L 3.5-10.5 RED BLOOD CELL COUNT (BEAKER) (test pozt=495) 3.54 M/ L 4.63-6.08 HEMOGLOBIN (BEAKER) (test jmsu=570) 11.2 GM/DL 13.7-17.5 HEMATOCRIT (BEAKER) (test lubw=844) 33.0 % 40.1-51.0 MEAN CORPUSCULAR VOLUME (BEAKER) (test rjuu=997) 93.2 fL 79.0-92.2 MEAN CORPUSCULAR HEMOGLOBIN (BEAKER) (test 31.6 pg 25.7-32.2 dhyk=081) MEAN CORPUSCULAR HEMOGLOBIN CONC (BEAKER) (test 33.9 GM/DL 32.3-36.5 zfdm=023) RED CELL DISTRIBUTION WIDTH (BEAKER) (test 13.7 % 11.6-14.4 qsex=416) PLATELET COUNT (BEAKER) (test bhcr=286) 548 K/CU MM 150-450 MEAN PLATELET VOLUME (BEAKER) (test tcjs=303) 8.9 fL 9.4-12.4 NUCLEATED RED BLOOD CELLS (BEAKER) (test 0 /100 WBC 0-0 mtem=743) POCT-GLUCOSE [id number] 21:17:00 Test Item Value Reference Range Comments POC-GLUCOSE METER (BEAKER) 121 mg/dL 70-110 TESTED AT [address] (test flyz=3805) [place] [address] POCT-GLUCOSE [id number] 17:44:00 Test Item Value Reference Range Comments POC-GLUCOSE METER (BEAKER) 128 mg/dL 70-110 TESTED AT [address] (test ujqo=1064) [place] [address] POCT-GLUCOSE [id number] 12:33:00 Test Item Value Reference Range Comments POC-GLUCOSE METER (BEAKER) 107 mg/dL 70-110 TESTED AT [address] (test trch=0692) [place] [address] CBC (HEMOGRAM ONLY)2017-07-21 08:20:00 Test Item Value Reference Range Comments WHITE BLOOD CELL COUNT (BEAKER) (test yjek=852) 12.1 K/ L 3.5-10.5 RED BLOOD CELL COUNT (BEAKER) (test gmcm=110) 3.67 M/ L 4.63-6.08 HEMOGLOBIN (BEAKER) (test kfrk=539) 11.6 GM/DL 13.7-17.5 HEMATOCRIT (BEAKER) (test ilek=919) 34.6 % 40.1-51.0 MEAN CORPUSCULAR VOLUME (BEAKER) (test dtxa=840) 94.3 fL 79.0-92.2 MEAN CORPUSCULAR HEMOGLOBIN (BEAKER) (test 31.6 pg 25.7-32.2 xndc=641) MEAN CORPUSCULAR HEMOGLOBIN CONC (BEAKER) (test 33.5 GM/DL 32.3-36.5 bnvj=067) RED CELL DISTRIBUTION WIDTH (BEAKER) (test 13.9 % 11.6-14.4 rybz=568) PLATELET COUNT (BEAKER) (test rrin=563) 566 K/CU MM 150-450 MEAN PLATELET VOLUME (BEAKER) (test azet=439) 9.4 fL 9.4-12.4 NUCLEATED RED BLOOD CELLS (BEAKER) (test 0 /100 WBC 0-0 digd=729) [id number] 07:52:00 Test Item Value Reference Range Comments PHOSPHORUS (BEAKER) (test jbiy=561) 3.3 mg/dL 2.3-4.7 [id number] 07:52:00 Test Item Value Reference Range Comments MAGNESIUM (BEAKER) (test gcit=313) 1.7 mg/dL 1.6-2.6 BASIC METABOLIC [id number] 07:52:00 Test Item Value Reference Range Comments SODIUM (BEAKER) (test 129 meq/L 136-145 peiu=948) POTASSIUM (BEAKER) (test 4.1 meq/L 3.5-5.1 dcja=080) CHLORIDE (BEAKER) (test 97 meq/L 98-107 nzrg=347) CO2 (BEAKER) (test 25 meq/L 22-29 ouoc=374) BLOOD UREA NITROGEN 4 mg/dL 7-21 (BEAKER) (test lxpn=894) CREATININE (BEAKER) (test 0.62 mg/dL 0.57-1.25 azhz=707) GLUCOSE RANDOM (BEAKER) 90 mg/dL 70-105 (test uzqt=787) CALCIUM (BEAKER) (test 8.7 mg/dL 8.4-10.2 wcol=473) EGFR (BEAKER) (test 128 mL/min/1.73 sq m ESTIMATED GFR IS NOT abln=5378) ACCURATE CREATININE CLEARANCE IN PREDICTING GLOMERULAR FILTRATION RATE. ESTIMATED GFR IS NOT APPLICABLE FOR DIALYSIS PATIENTS. POCT-GLUCOSE [id number] 22:43:00 Test Item Value Reference Range Comments POC-GLUCOSE METER (BEAKER) 99 mg/dL 70-110 TESTED AT [place] [id number] [facility] (test ubfj=8425) [facility] [address] POCT-GLUCOSE [id number] 12:13:00 Test Item Value Reference Range Comments POC-GLUCOSE METER (BEAKER) 97 mg/dL 70-110 TESTED AT [address] (test ngvq=7576) [facility] [address] [id number] 06:22:00 Test Item Value Reference Range Comments PHOSPHORUS (BEAKER) (test njzu=777) 3.5 mg/dL 2.3-4.7 [id number] 06:22:00 Test Item Value Reference Range Comments MAGNESIUM (BEAKER) (test flmj=097) 1.8 mg/dL 1.6-2.6 BASIC METABOLIC [id number] 06:22:00 Test Item Value Reference Range Comments SODIUM (BEAKER) (test 132 meq/L 136-145 alzu=715) POTASSIUM (BEAKER) (test 4.2 meq/L 3.5-5.1 unpd=081) CHLORIDE (BEAKER) (test 101 meq/L 98-107 dmam=495) CO2 (BEAKER) (test 23 meq/L 22-29 qnky=333) BLOOD UREA NITROGEN 7 mg/dL 7-21 (BEAKER) (test nrsf=680) CREATININE (BEAKER) (test 0.60 mg/dL 0.57-1.25 lkli=609) GLUCOSE RANDOM (BEAKER) 95 mg/dL 70-105 (test rbem=779) CALCIUM (BEAKER) (test 8.5 mg/dL 8.4-10.2 mhyw=614) EGFR (BEAKER) (test 133 mL/min/1.73 sq m ESTIMATED GFR IS NOT qqqv=9077) ACCURATE CREATININE CLEARANCE IN PREDICTING GLOMERULAR FILTRATION RATE. ESTIMATED GFR IS NOT APPLICABLE FOR DIALYSIS PATIENTS. CBC (HEMOGRAM ONLY)2017-07-20 05:43:00 Test Item Value Reference Range Comments WHITE BLOOD CELL COUNT (BEAKER) (test zdzc=698) 10.9 K/ L 3.5-10.5 RED BLOOD CELL COUNT (BEAKER) (test mqes=025) 3.58 M/ L 4.63-6.08 HEMOGLOBIN (BEAKER) (test mjdp=735) 11.2 GM/DL 13.7-17.5 HEMATOCRIT (BEAKER) (test rnyw=485) 33.6 % 40.1-51.0 MEAN CORPUSCULAR VOLUME (BEAKER) (test quao=459) 93.9 fL 79.0-92.2 MEAN CORPUSCULAR HEMOGLOBIN (BEAKER) (test 31.3 pg 25.7-32.2 ovtn=952) MEAN CORPUSCULAR HEMOGLOBIN CONC (BEAKER) (test 33.3 GM/DL 32.3-36.5 lluy=483) RED CELL DISTRIBUTION WIDTH (BEAKER) (test 14.0 % 11.6-14.4 wsxw=981) PLATELET COUNT (BEAKER) (test drnp=237) 532 K/CU MM 150-450 MEAN PLATELET VOLUME (BEAKER) (test anjj=925) 9.3 fL 9.4-12.4 NUCLEATED RED BLOOD CELLS (BEAKER) (test 0 /100 WBC 0-0 ogam=388) POCT-GLUCOSE [id number] 20:13:00 Test Item Value Reference Range Comments POC-GLUCOSE METER (BEAKER) 113 mg/dL 70-110 TESTED AT [address] (test rrfl=5028) [facility] [address] POCT-GLUCOSE [id number] 08:04:00 Test Item Value Reference Range Comments POC-GLUCOSE METER (BEAKER) 101 mg/dL 70-110 TESTED AT [address] (test kenv=5702) [facility] [address] [id number] 05:24:00 Test Item Value Reference Range Comments PHOSPHORUS (BEAKER) (test gsgd=827) 3.4 mg/dL 2.3-4.7 [id number] 05:24:00 Test Item Value Reference Range Comments MAGNESIUM (BEAKER) (test lrbn=511) 1.8 mg/dL 1.6-2.6 BASIC METABOLIC [id number] 05:24:00 Test Item Value Reference Range Comments SODIUM (BEAKER) (test 128 meq/L 136-145 vvpd=376) POTASSIUM (BEAKER) (test 4.1 meq/L 3.5-5.1 clvj=921) CHLORIDE (BEAKER) (test 96 meq/L 98-107 vxqh=047) CO2 (BEAKER) (test 23 meq/L 22-29 dqig=830) BLOOD UREA NITROGEN 4 mg/dL 7-21 (BEAKER) (test mkiz=097) CREATININE (BEAKER) (test 0.64 mg/dL 0.57-1.25 ipru=088) GLUCOSE RANDOM (BEAKER) 105 mg/dL 70-105 (test nzbd=243) CALCIUM (BEAKER) (test 9.1 mg/dL 8.4-10.2 xnip=750) EGFR (BEAKER) (test 124 mL/min/1.73 sq m ESTIMATED GFR IS NOT ityo=6127) ACCURATE CREATININE CLEARANCE IN PREDICTING GLOMERULAR FILTRATION RATE. ESTIMATED GFR IS NOT APPLICABLE FOR DIALYSIS PATIENTS. CBC (HEMOGRAM ONLY)2017-07-19 05:20:00 Test Item Value Reference Range Comments WHITE BLOOD CELL COUNT (BEAKER) (test wgsi=494) 11.1 K/ L 3.5-10.5 RED BLOOD CELL COUNT (BEAKER) (test kjav=096) 3.72 M/ L 4.63-6.08 HEMOGLOBIN (BEAKER) (test dckw=411) 11.7 GM/DL 13.7-17.5 HEMATOCRIT (BEAKER) (test tvta=619) 34.5 % 40.1-51.0 MEAN CORPUSCULAR VOLUME (BEAKER) (test vguf=524) 92.7 fL 79.0-92.2 MEAN CORPUSCULAR HEMOGLOBIN (BEAKER) (test 31.5 pg 25.7-32.2 htzi=597) MEAN CORPUSCULAR HEMOGLOBIN CONC (BEAKER) (test 33.9 GM/DL 32.3-36.5 owgk=039) RED CELL DISTRIBUTION WIDTH (BEAKER) (test 14.2 % 11.6-14.4 jjvq=420) PLATELET COUNT (BEAKER) (test dcdd=057) 519 K/CU MM 150-450 MEAN PLATELET VOLUME (BEAKER) (test cndv=389) 9.1 fL 9.4-12.4 NUCLEATED RED BLOOD CELLS (BEAKER) (test 0 /100 WBC 0-0 tltv=587) POCT-GLUCOSE [id number] 22:11:00 Test Item Value Reference Range Comments POC-GLUCOSE METER (BEAKER) 98 mg/dL 70-110 TESTED AT [place] [id number] [facility] (test ufsu=9005) [facility] [address] POCT-GLUCOSE [id number] 07:39:00 Test Item Value Reference Range Comments POC-GLUCOSE METER (BEAKER) 96 mg/dL 70-110 TESTED AT [address] (test qkrv=8525) [facility] [address] [id number] 05:43:00 Test Item Value Reference Range Comments PHOSPHORUS (BEAKER) (test pkbd=485) 3.3 mg/dL 2.3-4.7 [id number] 05:43:00 Test Item Value Reference Range Comments MAGNESIUM (BEAKER) (test vxiu=415) 1.9 mg/dL 1.6-2.6 BASIC METABOLIC [id number] 05:43:00 Test Item Value Reference Range Comments SODIUM (BEAKER) (test 130 meq/L 136-145 wceh=643) POTASSIUM (BEAKER) (test 4.1 meq/L 3.5-5.1 tsvi=831) CHLORIDE (BEAKER) (test 98 meq/L 98-107 qlef=425) CO2 (BEAKER) (test 24 meq/L 22-29 vmwn=414) BLOOD UREA NITROGEN 4 mg/dL 7-21 (BEAKER) (test xgfc=564) CREATININE (BEAKER) (test 0.60 mg/dL 0.57-1.25 hwki=117) GLUCOSE RANDOM (BEAKER) 100 mg/dL 70-105 (test xtzj=520) CALCIUM (BEAKER) (test 8.7 mg/dL 8.4-10.2 qvun=785) EGFR (BEAKER) (test 133 mL/min/1.73 sq m ESTIMATED GFR IS NOT pkcn=1734) ACCURATE CREATININE CLEARANCE IN PREDICTING GLOMERULAR FILTRATION RATE. ESTIMATED GFR IS NOT APPLICABLE FOR DIALYSIS PATIENTS. CBC (HEMOGRAM ONLY)2017-07-18 05:15:00 Test Item Value Reference Range Comments WHITE BLOOD CELL COUNT (BEAKER) (test vqyu=561) 11.9 K/ L 3.5-10.5 RED BLOOD CELL COUNT (BEAKER) (test nlgn=617) 3.72 M/ L 4.63-6.08 HEMOGLOBIN (BEAKER) (test tukh=969) 11.8 GM/DL 13.7-17.5 HEMATOCRIT (BEAKER) (test zmxl=591) 34.4 % 40.1-51.0 MEAN CORPUSCULAR VOLUME (BEAKER) (test vviv=752) 92.5 fL 79.0-92.2 MEAN CORPUSCULAR HEMOGLOBIN (BEAKER) (test 31.7 pg 25.7-32.2 kyte=937) MEAN CORPUSCULAR HEMOGLOBIN CONC (BEAKER) (test 34.3 GM/DL 32.3-36.5 hgay=159) RED CELL DISTRIBUTION WIDTH (BEAKER) (test 14.6 % 11.6-14.4 kbkq=277) PLATELET COUNT (BEAKER) (test gkwt=184) 519 K/CU MM 150-450 MEAN PLATELET VOLUME (BEAKER) (test jqlc=492) 9.2 fL 9.4-12.4 NUCLEATED RED BLOOD CELLS (BEAKER) (test 0 /100 WBC 0-0 gkwg=719) POCT-GLUCOSE [id number] 20:53:00 Test Item Value Reference Range Comments POC-GLUCOSE METER (BEAKER) 113 mg/dL 70-110 TESTED AT [address] (test grdk=8518) [facility] [id number] MYOCARD IMAGING, MULTI, PHARM, [id number] 20:10:00FINAL REPORT PROCEDURE: Rest/Stress MYOCARDIAL PERFUSION SPECT with regadenoson\\XA9\\ CPT CODE: 28145 INDICATION: Preoperative evaluation, PAD HISTORY:Cardiac risk factors: [...] Normal extracardiac tracer distribution. 6. No previous [facility] study for comparison. Signed: Jeanie Carolina MDReport Verified Date/Time: 07/17/2017 20:10:02 Reading Location: [address] Reading Room POCT-GLUCOSE [id number] 14: 53:00 Test Item Value Reference Range Comments POC-GLUCOSE METER (BEAKER) 93 mg/dL 70-110 TESTED AT [address] (test bwth=3517) [facility] [address] POCT-GLUCOSE [id number] 08:04:00 Test Item Value Reference Range Comments POC-GLUCOSE METER (BEAKER) 109 mg/dL 70-110 TESTED AT [address] (test knci=0760) [facility] [address] [id number] 04:51:00 Test Item Value Reference Range Comments PHOSPHORUS (BEAKER) (test glbq=825) 3.3 mg/dL 2.3-4.7 [id number] 04:51:00 Test Item Value Reference Range Comments MAGNESIUM (BEAKER) (test hbkk=123) 1.8 mg/dL 1.6-2.6 BASIC METABOLIC [id number] 04:51:00 Test Item Value Reference Range Comments SODIUM (BEAKER) (test 131 meq/L 136-145 bzyg=378) POTASSIUM (BEAKER) (test 3.8 meq/L 3.5-5.1 sxzi=907) CHLORIDE (BEAKER) (test 98 meq/L 98-107 qglc=220) CO2 (BEAKER) (test 24 meq/L 22-29 ykri=363) BLOOD UREA NITROGEN 5 mg/dL 7-21 (BEAKER) (test hjur=570) CREATININE (BEAKER) (test 0.59 mg/dL 0.57-1.25 cpir=506) GLUCOSE RANDOM (BEAKER) 98 mg/dL 70-105 (test ypwj=016) CALCIUM (BEAKER) (test 8.8 mg/dL 8.4-10.2 ovho=901) EGFR (BEAKER) (test 136 mL/min/1.73 sq m ESTIMATED GFR IS NOT rmzh=0854) ACCURATE CREATININE CLEARANCE IN PREDICTING GLOMERULAR FILTRATION RATE. ESTIMATED GFR IS NOT APPLICABLE FOR DIALYSIS PATIENTS. CBC (HEMOGRAM ONLY)2017-07-17 04:33:00 Test Item Value Reference Range Comments WHITE BLOOD CELL COUNT (BEAKER) (test stio=080) 11.4 K/ L 3.5-10.5 RED BLOOD CELL COUNT (BEAKER) (test xetj=931) 3.61 M/ L 4.63-6.08 HEMOGLOBIN (BEAKER) (test autg=145) 11.3 GM/DL 13.7-17.5 HEMATOCRIT (BEAKER) (test oqed=148) 33.2 % 40.1-51.0 MEAN CORPUSCULAR VOLUME (BEAKER) (test bklm=851) 92.0 fL 79.0-92.2 MEAN CORPUSCULAR HEMOGLOBIN (BEAKER) (test 31.3 pg 25.7-32.2 qeex=717) MEAN CORPUSCULAR HEMOGLOBIN CONC (BEAKER) (test 34.0 GM/DL 32.3-36.5 qeov=191) RED CELL DISTRIBUTION WIDTH (BEAKER) (test 14.7 % 11.6-14.4 duvs=660) PLATELET COUNT (BEAKER) (test qkhg=499) 498 K/CU MM 150-450 MEAN PLATELET VOLUME (BEAKER) (test qxwv=838) 9.2 fL 9.4-12.4 NUCLEATED RED BLOOD CELLS (BEAKER) (test 0 /100 WBC 0-0 rdev=835) POCT-GLUCOSE [id number] 21:21:00 Test Item Value Reference Range Comments POC-GLUCOSE METER (BEAKER) 120 mg/dL 70-110 TESTED AT [facility] [address] [facility] (test wihe=8696) [facility] [address] BASIC METABOLIC [id number] 19:38:00 Test Item Value Reference Range Comments SODIUM (BEAKER) (test 131 meq/L 136-145 pbli=813) POTASSIUM (BEAKER) (test 4.1 meq/L 3.5-5.1 wblb=844) CHLORIDE (BEAKER) (test 98 meq/L 98-107 snoy=349) CO2 (BEAKER) (test 27 meq/L 22-29 gmjm=951) BLOOD UREA NITROGEN 6 mg/dL 7-21 (BEAKER) (test bflj=553) CREATININE (BEAKER) (test 0.61 mg/dL 0.57-1.25 mzqn=884) GLUCOSE RANDOM (BEAKER) 98 mg/dL 70-105 (test bmlw=672) CALCIUM (BEAKER) (test 8.9 mg/dL 8.4-10.2 ckgj=398) EGFR (BEAKER) (test 131 mL/min/1.73 sq m ESTIMATED GFR IS NOT sgxu=4874) ACCURATE CREATININE CLEARANCE IN PREDICTING GLOMERULAR FILTRATION RATE. ESTIMATED GFR IS NOT APPLICABLE FOR DIALYSIS PATIENTS. [id number] 19:25:00 Test Item Value Reference Range Comments PARTIAL THROMBOPLASTIN TIME (BEAKER) (test 35.0 seconds 22.5-36.0 ddca=925) CBC (HEMOGRAM ONLY)2017-07-16 19:13:00 Test Item Value Reference Range Comments WHITE BLOOD CELL COUNT (BEAKER) (test kofs=924) 12.7 K/ L 3.5-10.5 RED BLOOD CELL COUNT (BEAKER) (test wlop=371) 3.65 M/ L 4.63-6.08 HEMOGLOBIN (BEAKER) (test gxvy=679) 11.5 GM/DL 13.7-17.5 HEMATOCRIT (BEAKER) (test ejoc=225) 33.5 % 40.1-51.0 MEAN CORPUSCULAR VOLUME (BEAKER) (test nuyn=349) 91.8 fL 79.0-92.2 MEAN CORPUSCULAR HEMOGLOBIN (BEAKER) (test 31.5 pg 25.7-32.2 edzg=337) MEAN CORPUSCULAR HEMOGLOBIN CONC (BEAKER) (test 34.3 GM/DL 32.3-36.5 tzyj=037) RED CELL DISTRIBUTION WIDTH (BEAKER) (test 14.8 % 11.6-14.4 ilrq=889) PLATELET COUNT (BEAKER) (test qdio=532) 495 K/CU MM 150-450 MEAN PLATELET VOLUME (BEAKER) (test jxie=298) 9.0 fL 9.4-12.4 NUCLEATED RED BLOOD CELLS (BEAKER) (test 0 /100 WBC 0-0 palk=722) POCT-GLUCOSE [id number] 07:50:00 Test Item Value Reference Range Comments POC-GLUCOSE METER (BEAKER) 109 mg/dL 70-110 TESTED AT [facility] [address] [facility] (test erru=5644) [facility] [address] [id number] 07:16:00 Test Item Value Reference Range Comments PARTIAL THROMBOPLASTIN TIME (BEAKER) (test 101.3 seconds 22.5-36.0 wmtt=877) [id number] 05:32:00 Test Item Value Reference Range Comments MAGNESIUM (BEAKER) (test 1.8 mg/dL 1.6-2.6 Specimen slightly hemolyzed mnye=276) [id number] 05:32:00 Test Item Value Reference Range Comments PHOSPHORUS (BEAKER) (test 3.7 mg/dL 2.3-4.7 Specimen slightly hemolyzed chei=881) BASIC METABOLIC [id number] 05:32:00 Test Item Value Reference Range Comments SODIUM (BEAKER) (test 132 meq/L 136-145 pvft=638) POTASSIUM (BEAKER) (test 3.9 meq/L 3.5-5.1 Specimen slightly amob=252) hemolyzed CHLORIDE (BEAKER) (test 99 meq/L 98-107 ibee=014) CO2 (BEAKER) (test 25 meq/L 22-29 xmas=422) BLOOD UREA NITROGEN 4 mg/dL 7-21 (BEAKER) (test mlee=029) CREATININE (BEAKER) (test 0.60 mg/dL 0.57-1.25 Specimen slightly miop=280) hemolyzed GLUCOSE RANDOM (BEAKER) 102 mg/dL 70-105 (test xjpq=489) CALCIUM (BEAKER) (test 8.8 mg/dL 8.4-10.2 yjxk=422) EGFR (BEAKER) (test 133 mL/min/1.73 sq m ESTIMATED GFR IS NOT xigz=0463) ACCURATE CREATININE CLEARANCE IN PREDICTING GLOMERULAR FILTRATION RATE. ESTIMATED GFR IS NOT APPLICABLE FOR DIALYSIS PATIENTS. CBC (HEMOGRAM ONLY)2017-07-16 05:14:00 Test Item Value Reference Range Comments WHITE BLOOD CELL COUNT (BEAKER) (test fakw=181) 10.4 K/ L 3.5-10.5 RED BLOOD CELL COUNT (BEAKER) (test hsic=414) 3.29 M/ L 4.63-6.08 HEMOGLOBIN (BEAKER) (test xwjb=425) 10.8 GM/DL 13.7-17.5 HEMATOCRIT (BEAKER) (test uvkw=929) 30.7 % 40.1-51.0 MEAN CORPUSCULAR VOLUME (BEAKER) (test txki=570) 93.3 fL 79.0-92.2 MEAN CORPUSCULAR HEMOGLOBIN (BEAKER) (test 32.8 pg 25.7-32.2 clll=768) MEAN CORPUSCULAR HEMOGLOBIN CONC (BEAKER) (test 35.2 GM/DL 32.3-36.5 hgla=388) RED CELL DISTRIBUTION WIDTH (BEAKER) (test 13.2 % 11.6-14.4 crou=634) PLATELET COUNT (BEAKER) (test nsma=779) 529 K/CU MM 150-450 MEAN PLATELET VOLUME (BEAKER) (test jpvt=610) 9.4 fL 9.4-12.4 NUCLEATED RED BLOOD CELLS (BEAKER) (test 0 /100 WBC 0-0 uxjt=553) POCT-GLUCOSE [id number] 20:54:00 Test Item Value Reference Range Comments POC-GLUCOSE METER (BEAKER) 114 mg/dL 70-110 TESTED AT [address] (test rcff=0928) [facility] [address] POCT-GLUCOSE [id number] 17:52:00 Test Item Value Reference Range Comments POC-GLUCOSE METER (BEAKER) 113 mg/dL 70-110 TESTED AT [address] (test xczd=1990) [facility] [address] POCT-GLUCOSE [id number] 17:50:00 Test Item Value Reference Range Comments POC-GLUCOSE METER (BEAKER) 136 mg/dL 70-110 TESTED AT [address] (test nxac=3968) [facility] [address] [id number] 14:38:00 Test Item Value Reference Range Comments PARTIAL THROMBOPLASTIN TIME (BEAKER) (test 90.2 seconds 22.5-36.0 amug=101) [id number] 09:03:00 Test Item Value Reference Range Comments PARTIAL THROMBOPLASTIN TIME (BEAKER) (test 77.5 seconds 22.5-36.0 vqvy=673) POCT-GLUCOSE [id number] 08:06:00 Test Item Value Reference Range Comments POC-GLUCOSE METER (BEAKER) 89 mg/dL 70-110 TESTED AT [address] (test qnjo=6938) [facility] [address] BASIC METABOLIC [id number] 01:59:00 Test Item Value Reference Range Comments SODIUM (BEAKER) (test 133 meq/L 136-145 jfbs=055) POTASSIUM (BEAKER) (test 3.9 meq/L 3.5-5.1 bzap=695) CHLORIDE (BEAKER) (test 99 meq/L 98-107 asyo=031) CO2 (BEAKER) (test 23 meq/L 22-29 mkhe=681) BLOOD UREA NITROGEN 4 mg/dL 7-21 (BEAKER) (test hnog=427) CREATININE (BEAKER) (test 0.59 mg/dL 0.57-1.25 ajvl=356) GLUCOSE RANDOM (BEAKER) 94 mg/dL 70-105 (test hmmi=554) CALCIUM (BEAKER) (test 8.8 mg/dL 8.4-10.2 prbl=368) EGFR (BEAKER) (test 136 mL/min/1.73 sq m ESTIMATED GFR IS NOT idoo=1942) ACCURATE CREATININE CLEARANCE IN PREDICTING GLOMERULAR FILTRATION RATE. ESTIMATED GFR IS NOT APPLICABLE FOR DIALYSIS PATIENTS. [id number] 01:58:00 Test Item Value Reference Range Comments PHOSPHORUS (BEAKER) (test whka=226) 3.7 mg/dL 2.3-4.7 [id number] 01:58:00 Test Item Value Reference Range Comments MAGNESIUM (BEAKER) (test mcpz=103) 1.8 mg/dL 1.6-2.6 [id number] 01:54:00 Test Item Value Reference Range Comments PARTIAL THROMBOPLASTIN TIME (BEAKER) (test 58.6 seconds 22.5-36.0 lvdc=437) CBC (HEMOGRAM ONLY)2017-07-15 01:46:00 Test Item Value Reference Range Comments WHITE BLOOD CELL COUNT (BEAKER) (test kyaq=661) 11.0 K/ L 3.5-10.5 RED BLOOD CELL COUNT (BEAKER) (test wfau=705) 3.49 M/ L 4.63-6.08 HEMOGLOBIN (BEAKER) (test cpey=218) 11.5 GM/DL 13.7-17.5 HEMATOCRIT (BEAKER) (test wvbi=320) 33.1 % 40.1-51.0 MEAN CORPUSCULAR VOLUME (BEAKER) (test ehvk=014) 94.8 fL 79.0-92.2 MEAN CORPUSCULAR HEMOGLOBIN (BEAKER) (test 33.0 pg 25.7-32.2 lfez=469) MEAN CORPUSCULAR HEMOGLOBIN CONC (BEAKER) (test 34.7 GM/DL 32.3-36.5 pcsr=497) RED CELL DISTRIBUTION WIDTH (BEAKER) (test 13.2 % 11.6-14.4 vxdp=269) PLATELET COUNT (BEAKER) (test xeio=849) 495 K/CU MM 150-450 MEAN PLATELET VOLUME (BEAKER) (test lmxo=457) 9.1 fL 9.4-12.4 NUCLEATED RED BLOOD CELLS (BEAKER) (test 0 /100 WBC 0-0 xxbm=742) [id number] 23:30:00 Test Item Value Reference Range Comments PARTIAL THROMBOPLASTIN TIME (BEAKER) (test 116.8 seconds 22.5-36.0 lrhm=979) POCT-GLUCOSE [id number] 21:26:00 Test Item Value Reference Range Comments POC-GLUCOSE METER (BEAKER) 101 mg/dL 70-110 TESTED AT [facility] [address] [facility] (test xfeg=9684) [facility] [address] POCT-GLUCOSE [id number] 18:14:00 Test Item Value Reference Range Comments POC-GLUCOSE METER (BEAKER) 82 mg/dL 70-110 TESTED AT [address] (test xvxx=6875) [facility] [address] [id number] 15:43:00 Test Item Value Reference Range Comments PARTIAL THROMBOPLASTIN TIME (BEAKER) (test 65.7 seconds 22.5-36.0 mrgj=406) POCT-GLUCOSE [id number] 12:44:00 Test Item Value Reference Range Comments POC-GLUCOSE METER (BEAKER) 121 mg/dL 70-110 TESTED AT [address] (test imbx=3778) [place] [id number] POCT-GLUCOSE [id number] 08:26:00 Test Item Value Reference Range Comments POC-GLUCOSE METER (BEAKER) 99 mg/dL 70-110 TESTED AT [address] (test lwsc=9714) [facility] [address] [id number] 07:58:00 Test Item Value Reference Range Comments PHOSPHORUS (BEAKER) (test xdla=245) 2.4 mg/dL 2.3-4.7 [id number] 07:58:00 Test Item Value Reference Range Comments MAGNESIUM (BEAKER) (test zuaj=351) 1.6 mg/dL 1.6-2.6 BASIC METABOLIC [id number] 07:58:00 Test Item Value Reference Range Comments SODIUM (BEAKER) (test 131 meq/L 136-145 ptmr=577) POTASSIUM (BEAKER) (test 4.8 meq/L 3.5-5.1 oabz=601) CHLORIDE (BEAKER) (test 102 meq/L 98-107 jdxg=644) CO2 (BEAKER) (test 22 meq/L 22-29 bagn=764) BLOOD UREA NITROGEN 3 mg/dL 7-21 (BEAKER) (test aqdi=198) CREATININE (BEAKER) (test 0.58 mg/dL 0.57-1.25 vmfc=799) GLUCOSE RANDOM (BEAKER) 102 mg/dL 70-105 (test jaxm=849) CALCIUM (BEAKER) (test 8.8 mg/dL 8.4-10.2 bgen=232) EGFR (BEAKER) (test 139 mL/min/1.73 sq m ESTIMATED GFR IS NOT jytf=8444) ACCURATE CREATININE CLEARANCE IN PREDICTING GLOMERULAR FILTRATION RATE. ESTIMATED GFR IS NOT APPLICABLE FOR DIALYSIS PATIENTS. [id number] 07:22:00 Test Item Value Reference Range Comments PARTIAL THROMBOPLASTIN TIME (BEAKER) (test 64.2 seconds 22.5-36.0 ggeq=862) CBC (HEMOGRAM ONLY)2017-07-14 07:07:00 Test Item Value Reference Range Comments WHITE BLOOD CELL COUNT (BEAKER) (test qdxc=262) 10.5 K/ L 3.5-10.5 RED BLOOD CELL COUNT (BEAKER) (test cwow=706) 3.56 M/ L 4.63-6.08 HEMOGLOBIN (BEAKER) (test eoig=788) 11.8 GM/DL 13.7-17.5 HEMATOCRIT (BEAKER) (test ndsk=251) 34.6 % 40.1-51.0 MEAN CORPUSCULAR VOLUME (BEAKER) (test chpx=088) 97.2 fL 79.0-92.2 MEAN CORPUSCULAR HEMOGLOBIN (BEAKER) (test 33.1 pg 25.7-32.2 sgek=650) MEAN CORPUSCULAR HEMOGLOBIN CONC (BEAKER) (test 34.1 GM/DL 32.3-36.5 inqf=024) RED CELL DISTRIBUTION WIDTH (BEAKER) (test 13.2 % 11.6-14.4 hapm=665) PLATELET COUNT (BEAKER) (test fleo=802) 458 K/CU MM 150-450 MEAN PLATELET VOLUME (BEAKER) (test zzay=255) 9.2 fL 9.4-12.4 NUCLEATED RED BLOOD CELLS (BEAKER) (test 0 /100 WBC 0-0 zaqj=602) [id number] 22:44:00 Test Item Value Reference Range Comments PARTIAL THROMBOPLASTIN TIME (BEAKER) (test 47.9 seconds 22.5-36.0 cbyw=284) POCT-GLUCOSE [id number] 21:32:00 Test Item Value Reference Range Comments POC-GLUCOSE METER (BEAKER) 110 mg/dL 70-110 TESTED AT [address] (test klwt=4657) [facility] [address] POCT-GLUCOSE [id number] 18:25:00 Test Item Value Reference Range Comments POC-GLUCOSE METER (BEAKER) 109 mg/dL 70-110 TESTED AT [address] (test geex=2133) [facility] [address] [id number] 14:09:00 Test Item Value Reference Range Comments PARTIAL THROMBOPLASTIN TIME (BEAKER) (test 42.7 seconds 22.5-36.0 xbki=327) [id number] 10:34:00 Test Item Value Reference Range Comments PARTIAL THROMBOPLASTIN TIME (BEAKER) (test 124.2 seconds 22.5-36.0 mpxv=866) [id number] 01:47:00 Test Item Value Reference Range Comments PHOSPHORUS (BEAKER) (test yrdn=808) 2.5 mg/dL 2.3-4.7 [id number] 01:47:00 Test Item Value Reference Range Comments MAGNESIUM (BEAKER) (test yeau=420) 1.9 mg/dL 1.6-2.6 BASIC METABOLIC [id number] 01:47:00 Test Item Value Reference Range Comments SODIUM (BEAKER) (test 133 meq/L 136-145 vbex=235) POTASSIUM (BEAKER) (test 3.5 meq/L 3.5-5.1 zwvw=528) CHLORIDE (BEAKER) (test 101 meq/L 98-107 symi=735) CO2 (BEAKER) (test 26 meq/L 22-29 vgfl=211) BLOOD UREA NITROGEN 4 mg/dL 7-21 (BEAKER) (test tqoo=201) CREATININE (BEAKER) (test 0.53 mg/dL 0.57-1.25 mpvc=776) GLUCOSE RANDOM (BEAKER) 125 mg/dL 70-105 (test yezw=013) CALCIUM (BEAKER) (test 8.2 mg/dL 8.4-10.2 nxhz=890) EGFR (BEAKER) (test 154 mL/min/1.73 sq m ESTIMATED GFR IS NOT eowz=4166) ACCURATE CREATININE CLEARANCE IN PREDICTING GLOMERULAR FILTRATION RATE. ESTIMATED GFR IS NOT APPLICABLE FOR DIALYSIS PATIENTS. CBC (HEMOGRAM ONLY)2017-07-13 01:31:00 Test Item Value Reference Range Comments WHITE BLOOD CELL COUNT (BEAKER) (test eghl=275) 7.9 K/ L 3.5-10.5 RED BLOOD CELL COUNT (BEAKER) (test atdj=561) 3.16 M/ L 4.63-6.08 HEMOGLOBIN (BEAKER) (test zkqx=507) 10.4 GM/DL 13.7-17.5 HEMATOCRIT (BEAKER) (test hvmb=015) 30.1 % 40.1-51.0 MEAN CORPUSCULAR VOLUME (BEAKER) (test nbox=262) 95.3 fL 79.0-92.2 MEAN CORPUSCULAR HEMOGLOBIN (BEAKER) (test 32.9 pg 25.7-32.2 dogm=643) MEAN CORPUSCULAR HEMOGLOBIN CONC (BEAKER) (test 34.6 GM/DL 32.3-36.5 zqmo=630) RED CELL DISTRIBUTION WIDTH (BEAKER) (test 13.0 % 11.6-14.4 euna=356) PLATELET COUNT (BEAKER) (test xhnv=326) 417 K/CU MM 150-450 MEAN PLATELET VOLUME (BEAKER) (test kjqe=955) 8.9 fL 9.4-12.4 NUCLEATED RED BLOOD CELLS (BEAKER) (test 0 /100 WBC 0-0 rsvt=938) CREATINE KINASE (CK), TOTAL AND [id number] 23:45:00 Test Item Value Reference Range Comments CREATINE KINASE TOTAL (BEAKER) (test maph=390) 224 U/L 29-200 CREATINE KINASE-MB (BEAKER) (test nuon=683) 2.8 ng/mL 0.0-6.6 CREATINE KINASE-MB INDEX (BEAKER) (test mqrp=636) 1.3 % CK-MB Reference Range:<6.7 Normal6.7-10.0 Borderline>10.0 AbnormalTROPONIN [id number] 23:45:00 Test Item Value Reference Range Comments TROPONIN I (BEAKER) (test ksza=223) 0.03 ng/mL 0.00-0.03 Troponin I (TnI) levels [...] failure, acidosis, acute neurological disease, and persistent tachyarrhythmia.[id number] 23:39:00 Test Item Value Reference Range Comments MAGNESIUM (BEAKER) (test xjos=608) 1.5 mg/dL 1.6-2.6 BASIC METABOLIC [id number] 23:39:00 Test Item Value Reference Range Comments SODIUM (BEAKER) (test 135 meq/L 136-145 vpuq=510) POTASSIUM (BEAKER) (test 3.7 meq/L 3.5-5.1 uhlo=646) CHLORIDE (BEAKER) (test 100 meq/L 98-107 dfil=748) CO2 (BEAKER) (test 27 meq/L 22-29 cdwl=858) BLOOD UREA NITROGEN 4 mg/dL 7-21 (BEAKER) (test vuaa=743) CREATININE (BEAKER) (test 0.54 mg/dL 0.57-1.25 rmmd=933) GLUCOSE RANDOM (BEAKER) 117 mg/dL 70-105 (test fsaf=826) CALCIUM (BEAKER) (test 8.3 mg/dL 8.4-10.2 ivus=769) EGFR (BEAKER) (test 150 mL/min/1.73 sq m ESTIMATED GFR IS NOT zmfq=0991) ACCURATE CREATININE CLEARANCE IN PREDICTING GLOMERULAR FILTRATION RATE. ESTIMATED GFR IS NOT APPLICABLE FOR DIALYSIS PATIENTS. POCT-GLUCOSE [id number] 17:55:00 Test Item Value Reference Range Comments POC-GLUCOSE METER (BEAKER) 93 mg/dL 70-110 TESTED AT [address] (test rmbf=1244) [place] [address] POCT-GLUCOSE [id number] 17:24:00 Test Item Value Reference Range Comments POC-GLUCOSE METER (BEAKER) 101 mg/dL 70-110 TESTED AT [address] (test rbzs=3646) [place] [id number] POCT-GLUCOSE [id number] 06:58:00 Test Item Value Reference Range Comments POC-GLUCOSE METER (BEAKER) 116 mg/dL 70-110 TESTED AT [address] (test mqvy=8913) [place] [address] [id number] 06:07:00 Test Item Value Reference Range Comments PHOSPHORUS (BEAKER) (test zwvb=813) 2.3 mg/dL 2.3-4.7 [id number] 06:07:00 Test Item Value Reference Range Comments MAGNESIUM (BEAKER) (test cwej=979) 1.7 mg/dL 1.6-2.6 BASIC METABOLIC [id number] 06:07:00 Test Item Value Reference Range Comments SODIUM (BEAKER) (test 134 meq/L 136-145 otxz=570) POTASSIUM (BEAKER) (test 3.3 meq/L 3.5-5.1 hrwc=795) CHLORIDE (BEAKER) (test 98 meq/L 98-107 ocfv=518) CO2 (BEAKER) (test 28 meq/L 22-29 wuxa=344) BLOOD UREA NITROGEN 4 mg/dL 7-21 (BEAKER) (test evfy=669) CREATININE (BEAKER) (test 0.57 mg/dL 0.57-1.25 eiqo=953) GLUCOSE RANDOM (BEAKER) 94 mg/dL 70-105 (test oims=960) CALCIUM (BEAKER) (test 8.6 mg/dL 8.4-10.2 puzv=658) EGFR (BEAKER) (test 141 mL/min/1.73 sq m ESTIMATED GFR IS NOT tbqk=9339) ACCURATE CREATININE CLEARANCE IN PREDICTING GLOMERULAR FILTRATION RATE. ESTIMATED GFR IS NOT APPLICABLE FOR DIALYSIS PATIENTS. [id number] 05:55:00 Test Item Value Reference Range Comments PARTIAL THROMBOPLASTIN TIME (BEAKER) (test 81.2 seconds 22.5-36.0 bxvj=666) CBC (HEMOGRAM ONLY)2017-07-12 05:52:00 Test Item Value Reference Range Comments WHITE BLOOD CELL COUNT (BEAKER) (test ekmr=154) 10.9 K/ L 3.5-10.5 RED BLOOD CELL COUNT (BEAKER) (test miiu=828) 3.63 M/ L 4.63-6.08 HEMOGLOBIN (BEAKER) (test vixd=970) 11.8 GM/DL 13.7-17.5 HEMATOCRIT (BEAKER) (test epms=071) 35.3 % 40.1-51.0 MEAN CORPUSCULAR VOLUME (BEAKER) (test xejk=550) 97.2 fL 79.0-92.2 MEAN CORPUSCULAR HEMOGLOBIN (BEAKER) (test 32.5 pg 25.7-32.2 skza=179) MEAN CORPUSCULAR HEMOGLOBIN CONC (BEAKER) (test 33.4 GM/DL 32.3-36.5 ysns=823) RED CELL DISTRIBUTION WIDTH (BEAKER) (test 13.2 % 11.6-14.4 pzcc=962) PLATELET COUNT (BEAKER) (test vzfx=557) 406 K/CU MM 150-450 MEAN PLATELET VOLUME (BEAKER) (test fkjt=125) 9.5 fL 9.4-12.4 NUCLEATED RED BLOOD CELLS (BEAKER) (test 0 /100 WBC 0-0 kcey=329) POCT-GLUCOSE [id number] 23:45:00 Test Item Value Reference Range Comments POC-GLUCOSE METER (BEAKER) 110 mg/dL 70-110 TESTED AT [address] (test fnqz=9197) [place] [address] [id number] 21:27:00 Test Item Value Reference Range Comments PARTIAL THROMBOPLASTIN TIME (BEAKER) (test 75.7 seconds 22.5-36.0 bnwf=135) POCT-GLUCOSE [id number] 17:45:00 Test Item Value Reference Range Comments POC-GLUCOSE METER (BEAKER) 117 mg/dL 70-110 TESTED AT [address] (test qfbg=4156) [place] [address] [id number] 14:32:00 Test Item Value Reference Range Comments PARTIAL THROMBOPLASTIN TIME (BEAKER) (test 59.1 seconds 22.5-36.0 fkqz=038) POCT-GLUCOSE [id number] 12:34:00 Test Item Value Reference Range Comments POC-GLUCOSE METER (BEAKER) 104 mg/dL 70-110 TESTED AT [address] (test snqf=7588) [place] [address] [id number] 07:53:00 Test Item Value Reference Range Comments PHOSPHORUS (BEAKER) (test lrdz=865) 2.5 mg/dL 2.3-4.7 [id number] 07:53:00 Test Item Value Reference Range Comments MAGNESIUM (BEAKER) (test yakq=101) 1.7 mg/dL 1.6-2.6 BASIC METABOLIC [id number] 07:53:00 Test Item Value Reference Range Comments SODIUM (BEAKER) (test 134 meq/L 136-145 voxx=620) POTASSIUM (BEAKER) (test 3.6 meq/L 3.5-5.1 hphx=588) CHLORIDE (BEAKER) (test 99 meq/L 98-107 pgrh=646) CO2 (BEAKER) (test 26 meq/L 22-29 rxbi=353) BLOOD UREA NITROGEN 3 mg/dL 7-21 (BEAKER) (test lydw=613) CREATININE (BEAKER) (test 0.57 mg/dL 0.57-1.25 lsfb=822) GLUCOSE RANDOM (BEAKER) 98 mg/dL 70-105 (test qwwh=947) CALCIUM (BEAKER) (test 8.4 mg/dL 8.4-10.2 xfgo=338) EGFR (BEAKER) (test 141 mL/min/1.73 sq m ESTIMATED GFR IS NOT aoor=4200) ACCURATE CREATININE CLEARANCE IN PREDICTING GLOMERULAR FILTRATION RATE. ESTIMATED GFR IS NOT APPLICABLE FOR DIALYSIS PATIENTS. [id number] 07:31:00 Test Item Value Reference Range Comments PARTIAL THROMBOPLASTIN TIME (BEAKER) (test 65.4 seconds 22.5-36.0 tgtz=793) CBC (HEMOGRAM ONLY)2017-07-11 07:17:00 Test Item Value Reference Range Comments WHITE BLOOD CELL COUNT (BEAKER) (test mvuq=158) 10.9 K/ L 3.5-10.5 RED BLOOD CELL COUNT (BEAKER) (test hopm=939) 3.66 M/ L 4.63-6.08 HEMOGLOBIN (BEAKER) (test tgja=977) 12.0 GM/DL 13.7-17.5 HEMATOCRIT (BEAKER) (test mtvk=857) 36.3 % 40.1-51.0 MEAN CORPUSCULAR VOLUME (BEAKER) (test zbny=598) 99.2 fL 79.0-92.2 MEAN CORPUSCULAR HEMOGLOBIN (BEAKER) (test 32.8 pg 25.7-32.2 vbbi=428) MEAN CORPUSCULAR HEMOGLOBIN CONC (BEAKER) (test 33.1 GM/DL 32.3-36.5 cqra=855) RED CELL DISTRIBUTION WIDTH (BEAKER) (test 13.4 % 11.6-14.4 vnri=281) PLATELET COUNT (BEAKER) (test mbve=912) 373 K/CU MM 150-450 MEAN PLATELET VOLUME (BEAKER) (test oofl=620) 9.3 fL 9.4-12.4 NUCLEATED RED BLOOD CELLS (BEAKER) (test 0 /100 WBC 0-0 spgi=144) [id number] 00:35:00 Test Item Value Reference Range Comments PARTIAL THROMBOPLASTIN TIME (BEAKER) (test 112.1 seconds 22.5-36.0 iwqy=714) [id number] 19:22:00 Test Item Value Reference Range Comments PARTIAL THROMBOPLASTIN TIME (BEAKER) (test 62.3 seconds 22.5-36.0 zbvd=262) POCT-GLUCOSE [id number] 18:01:00 Test Item Value Reference Range Comments POC-GLUCOSE METER (BEAKER) 101 mg/dL 70-110 TESTED AT [address] (test xpuq=3080) [place] [id number] 17:27:00 Test Item Value Reference Range Comments PARTIAL THROMBOPLASTIN TIME (BEAKER) (test 132.8 seconds 22.5-36.0 rqrb=963) POCT-GLUCOSE [id number] 11:28:00 Test Item Value Reference Range Comments POC-GLUCOSE METER (BEAKER) 105 mg/dL 70-110 TESTED AT [address] (test fwhd=2987) [place] [id number] 09:30:00 Test Item Value Reference Range Comments PARTIAL THROMBOPLASTIN TIME (BEAKER) (test 47.3 seconds 22.5-36.0 lott=476) Prior to initiating [id number] 06:09:00 Test Item Value Reference Range Comments PHOSPHORUS (BEAKER) (test aggf=929) 1.8 mg/dL 2.3-4.7 [id number] 06:09:00 Test Item Value Reference Range Comments MAGNESIUM (BEAKER) (test fmgw=823) 1.9 mg/dL 1.6-2.6 BASIC METABOLIC [id number] 06:09:00 Test Item Value Reference Range Comments SODIUM (BEAKER) (test 133 meq/L 136-145 bfcw=279) POTASSIUM (BEAKER) (test 3.9 meq/L 3.5-5.1 wfjt=753) CHLORIDE (BEAKER) (test 103 meq/L 98-107 jupt=669) CO2 (BEAKER) (test 22 meq/L 22-29 reqx=113) BLOOD UREA NITROGEN 4 mg/dL 7-21 (BEAKER) (test iapz=108) CREATININE (BEAKER) (test 0.57 mg/dL 0.57-1.25 yoek=532) GLUCOSE RANDOM (BEAKER) 98 mg/dL 70-105 (test buxb=330) CALCIUM (BEAKER) (test 8.0 mg/dL 8.4-10.2 xizt=761) EGFR (BEAKER) (test 141 mL/min/1.73 sq m ESTIMATED GFR IS NOT kgqd=5895) ACCURATE CREATININE CLEARANCE IN PREDICTING GLOMERULAR FILTRATION RATE. ESTIMATED GFR IS NOT APPLICABLE FOR DIALYSIS PATIENTS. CBC (HEMOGRAM ONLY)2017-07-10 04:55:00 Test Item Value Reference Range Comments WHITE BLOOD CELL COUNT (BEAKER) (test gveo=600) 11.8 K/ L 3.5-10.5 RED BLOOD CELL COUNT (BEAKER) (test hyyv=560) 3.18 M/ L 4.63-6.08 HEMOGLOBIN (BEAKER) (test nzgn=703) 10.5 GM/DL 13.7-17.5 HEMATOCRIT (BEAKER) (test wedf=915) 30.3 % 40.1-51.0 MEAN CORPUSCULAR VOLUME (BEAKER) (test miek=077) 95.3 fL 79.0-92.2 MEAN CORPUSCULAR HEMOGLOBIN (BEAKER) (test 33.0 pg 25.7-32.2 qazy=490) MEAN CORPUSCULAR HEMOGLOBIN CONC (BEAKER) (test 34.7 GM/DL 32.3-36.5 betp=894) RED CELL DISTRIBUTION WIDTH (BEAKER) (test 13.1 % 11.6-14.4 teza=561) PLATELET COUNT (BEAKER) (test hvqm=273) 420 K/CU MM 150-450 MEAN PLATELET VOLUME (BEAKER) (test supx=011) 9.4 fL 9.4-12.4 NUCLEATED RED BLOOD CELLS (BEAKER) (test 0 /100 WBC 0-0 jcaw=993) [id number] 19:26:00 Test Item Value Reference Range Comments PHOSPHORUS (BEAKER) (test bxwa=209) 3.5 mg/dL 2.3-4.7 [id number] 19:26:00 Test Item Value Reference Range Comments MAGNESIUM (BEAKER) (test aqfo=078) 1.5 mg/dL 1.6-2.6 COMPREHENSIVE METABOLIC [id number] 19:26:00 Test Item Value Reference Range Comments TOTAL PROTEIN (BEAKER) 6.4 gm/dL 6.0-8.3 (test hkhx=017) ALBUMIN (BEAKER) (test 2.7 g/dL 3.5-5.0 dzjx=0874) ALKALINE PHOSPHATASE 121 U/L 40-150 (BEAKER) (test glcw=428) BILIRUBIN TOTAL (BEAKER) 0.5 mg/dL 0.2-1.2 (test gybs=335) SODIUM (BEAKER) (test 135 meq/L 136-145 hduy=849) POTASSIUM (BEAKER) (test 3.3 meq/L 3.5-5.1 khem=074) CHLORIDE (BEAKER) (test 106 meq/L 98-107 bqrn=628) CO2 (BEAKER) (test 22 meq/L 22-29 hmbv=960) BLOOD UREA NITROGEN 6 mg/dL 7-21 (BEAKER) (test vntu=149) CREATININE (BEAKER) (test 0.55 mg/dL 0.57-1.25 fwdp=986) GLUCOSE RANDOM (BEAKER) 108 mg/dL 70-105 (test tdpn=790) CALCIUM (BEAKER) (test 8.5 mg/dL 8.4-10.2 stey=567) AST (SGOT) (BEAKER) (test 27 U/L 5-34 dwju=533) ALT (SGPT) (BEAKER) (test 16 U/L 6-55 urwo=828) EGFR (BEAKER) (test 147 mL/min/1.73 sq ESTIMATED GFR IS NOT khkc=9860) m ACCURATE CREATININE CLEARANCE IN PREDICTING GLOMERULAR FILTRATION RATE. ESTIMATED GFR IS NOT APPLICABLE FOR DIALYSIS PATIENTS. CBC W/PLT COUNT & AUTO [id number] 19:24:00 Test Item Value Reference Range Comments WHITE BLOOD CELL COUNT (BEAKER) (test epcl=177) 15.2 K/ L 3.5-10.5 RED BLOOD CELL COUNT (BEAKER) (test wvbm=790) 3.37 M/ L 4.63-6.08 HEMOGLOBIN (BEAKER) (test pcif=835) 11.1 GM/DL 13.7-17.5 HEMATOCRIT (BEAKER) (test urvs=837) 32.7 % 40.1-51.0 MEAN CORPUSCULAR VOLUME (BEAKER) (test xmdl=011) 97.0 fL 79.0-92.2 MEAN CORPUSCULAR HEMOGLOBIN (BEAKER) (test 32.9 pg 25.7-32.2 ojvn=525) MEAN CORPUSCULAR HEMOGLOBIN CONC (BEAKER) (test 33.9 GM/DL 32.3-36.5 okig=571) RED CELL DISTRIBUTION WIDTH (BEAKER) (test 13.1 % 11.6-14.4 qlid=649) PLATELET COUNT (BEAKER) (test uzih=651) 428 K/CU MM 150-450 MEAN PLATELET VOLUME (BEAKER) (test bzga=307) 9.3 fL 9.4-12.4 NUCLEATED RED BLOOD CELLS (BEAKER) (test 0 /100 WBC 0-0 wzyq=767) NEUTROPHILS RELATIVE PERCENT (BEAKER) (test 80 % cbco=580) LYMPHOCYTES RELATIVE PERCENT (BEAKER) (test 14 % wpwg=810) MONOCYTES RELATIVE PERCENT (BEAKER) (test 4 % uksh=947) EOSINOPHILS RELATIVE PERCENT (BEAKER) (test 0 % anex=516) BASOPHILS RELATIVE PERCENT (BEAKER) (test 0 % wjdt=909) NEUTROPHILS ABSOLUTE COUNT (BEAKER) (test 12.19 K/ L 1.78-5.38 vtte=223) LYMPHOCYTES ABSOLUTE COUNT (BEAKER) (test 2.11 K/ L 1.32-3.57 vfua=671) MONOCYTES ABSOLUTE COUNT (BEAKER) (test 0.66 K/ L 0.30-0.82 hxad=508) EOSINOPHILS ABSOLUTE COUNT (BEAKER) (test 0.03 K/ L 0.04-0.54 gdeq=835) BASOPHILS ABSOLUTE COUNT (BEAKER) (test 0.06 K/ L 0.01-0.08 iqtq=149) IMMATURE GRANULOCYTES-RELATIVE PERCENT (BEAKER) 1 % 0-1 (test tume=2298) PROTHROMBIN [id number] 18:59:00 Test Item Value Reference Range Comments PROTIME (BEAKER) (test whjt=616) 14.6 seconds 11.7-14.7 INR (BEAKER) (test bkex=028) 1.1 <=5.9 RECOMMENDED COUMADIN/WARFARIN INR THERAPY RANGESSTANDARD DOSE: 2.0 - 3.0 Includes: PROPHYLAXIS forvenous thrombosis, systemic embolization; TREATMENT for venous thrombosis and/or pulmonary embolus.HIGH RISK: Target INR is 2.5-3.5 for patients with mechanical heart valves.[id number] 18:59:00 Test Item Value Reference Range Comments PARTIAL THROMBOPLASTIN TIME (BEAKER) (test 37.7 seconds 22.5-36.0 diwc=010) BLOOD GAS, [id number] 18:46:00 Test Item Value Reference Range Comments PH ARTERIAL (BEAKER) (test srkk=077) 7.34 7.35-7.45 PCO2 ARTERIAL (BEAKER) (test dbhb=881) 43 mmHg 35-45 PO2 ARTERIAL (BEAKER) (test umdk=634) 86 mmHg 80-90 O2 SATURATION ARTERIAL (BEAKER) (test vese=872) 96.0 % 96.0-97.0 HCO3 ARTERIAL (BEAKER) (test wjcc=446) 23 mmol/L 21-29 BASE EXCESS ARTERIAL (BEAKER) (test edlw=772) -3.2 mmol/L -2.0-3.0 PATIENT TEMPERATURE (BEAKER) (test qrkj=2062) 37.0 C FIO2 (BEAKER) (test ftgq=9145) 36.0 % POCT-GLUCOSE [id number] 18:10:00 Test Item Value Reference Range Comments POC-GLUCOSE METER (BEAKER) 116 mg/dL 70-110 TESTED AT [address] (test sbur=0112) [place] [address] [id number] 16:58:00 Test Item Value Reference Range Comments ACTIVATED CLOTTING TIME 142 sec TESTED AT [address] [facility] (test qfiq=141) [place] [address] [id number] 16:58:00 Test Item Value Reference Range Comments ACTIVATED CLOTTING TIME 230 sec TESTED AT [address] ([facility]) (test yusu=245) [place] [address] [id number] 16:58:00 Test Item Value Reference Range Comments ACTIVATED CLOTTING TIME 208 sec TESTED AT [address] ([facility]) (test ckwu=845) [place] [address] [id number] 16:57:00 Test Item Value Reference Range Comments ACTIVATED CLOTTING TIME 268 sec TESTED AT [facility] [address] (BEAKER) (test tkpj=180) [place] [address] [id number] 13:32:00 Test Item Value Reference Range Comments SODIUM (BEAKER) (test zhqw=083) 134 meq/L 136-145 POTASSIUM (BEAKER) (test klok=341) 3.9 meq/L 3.5-5.1 CHLORIDE (BEAKER) (test bxcn=063) 98 meq/L 98-107 CO2 (BEAKER) (test zlps=552) 27 meq/L 22-29 POCT-GLUCOSE [id number] 12:08:00 Test Item Value Reference Range Comments POC-GLUCOSE METER (BEAKER) 80 mg/dL 70-110 TESTED AT [place] [address] [facility] (test pukn=6443) [place] [address] [id number] 05:22:00 Test Item Value Reference Range Comments PHOSPHORUS (BEAKER) (test giqq=092) 3.1 mg/dL 2.3-4.7 [id number] 05:22:00 Test Item Value Reference Range Comments MAGNESIUM (BEAKER) (test iduw=788) 1.6 mg/dL 1.6-2.6 BASIC METABOLIC [id number] 05:22:00 Test Item Value Reference Range Comments SODIUM (BEAKER) (test 131 meq/L 136-145 wbdo=693) POTASSIUM (BEAKER) (test 3.2 meq/L 3.5-5.1 llar=687) CHLORIDE (BEAKER) (test 96 meq/L 98-107 wmzu=337) CO2 (BEAKER) (test 25 meq/L 22-29 vxdz=500) BLOOD UREA NITROGEN 9 mg/dL 7-21 (BEAKER) (test yfio=694) CREATININE (BEAKER) (test 0.61 mg/dL 0.57-1.25 rmcj=759) GLUCOSE RANDOM (BEAKER) 63 mg/dL 70-105 (test tlzx=602) CALCIUM (BEAKER) (test 9.3 mg/dL 8.4-10.2 mrej=530) EGFR (BEAKER) (test 131 mL/min/1.73 sq m ESTIMATED GFR IS NOT thfq=9572) ACCURATE CREATININE CLEARANCE IN PREDICTING GLOMERULAR FILTRATION RATE. ESTIMATED GFR IS NOT APPLICABLE FOR DIALYSIS PATIENTS. [id number] 05:21:00 Test Item Value Reference Range Comments PROTIME (BEAKER) (test riqz=337) 14.6 seconds 11.7-14.7 INR (BEAKER) (test ezmt=730) 1.2 <=5.9 PARTIAL THROMBOPLASTIN TIME (BEAKER) (test 39.3 seconds 22.5-36.0 lkry=871) RECOMMENDED COUMADIN/WARFARIN INR THERAPY RANGESSTANDARD DOSE: 2.0 - 3.0 Includes: PROPHYLAXIS forvenous thrombosis, systemic embolization; TREATMENT for venous thrombosis and/or pulmonary embolus.HIGH RISK: Target INR is 2.5-3.5 for patients with mechanical heart valves.CBC W/PLT COUNT & AUTO [id number] 05:03:00 Test Item Value Reference Range Comments WHITE BLOOD CELL COUNT (BEAKER) (test mczt=873) 10.2 K/ L 3.5-10.5 RED BLOOD CELL COUNT (BEAKER) (test tfvu=861) 3.69 M/ L 4.63-6.08 HEMOGLOBIN (BEAKER) (test ouzz=243) 12.4 GM/DL 13.7-17.5 HEMATOCRIT (BEAKER) (test uqwr=161) 35.2 % 40.1-51.0 MEAN CORPUSCULAR VOLUME (BEAKER) (test ziro=509) 95.4 fL 79.0-92.2 MEAN CORPUSCULAR HEMOGLOBIN (BEAKER) (test 33.6 pg 25.7-32.2 pvzl=556) MEAN CORPUSCULAR HEMOGLOBIN CONC (BEAKER) (test 35.2 GM/DL 32.3-36.5 dzhs=332) RED CELL DISTRIBUTION WIDTH (BEAKER) (test 12.1 % 11.6-14.4 dedi=002) PLATELET COUNT (BEAKER) (test qekm=613) 389 K/CU MM 150-450 MEAN PLATELET VOLUME (BEAKER) (test dsfb=771) 9.9 fL 9.4-12.4 NUCLEATED RED BLOOD CELLS (BEAKER) (test 0 /100 WBC 0-0 mwwi=142) NEUTROPHILS RELATIVE PERCENT (BEAKER) (test 69 % pvrw=488) LYMPHOCYTES RELATIVE PERCENT (BEAKER) (test 18 % mbqp=999) MONOCYTES RELATIVE PERCENT (BEAKER) (test 10 % ndep=826) EOSINOPHILS RELATIVE PERCENT (BEAKER) (test 1 % qund=715) BASOPHILS RELATIVE PERCENT (BEAKER) (test 1 % nucc=503) NEUTROPHILS ABSOLUTE COUNT (BEAKER) (test 7.01 K/ L 1.78-5.38 zutm=836) LYMPHOCYTES ABSOLUTE COUNT (BEAKER) (test 1.85 K/ L 1.32-3.57 sxoy=187) MONOCYTES ABSOLUTE COUNT (BEAKER) (test 1.06 K/ L 0.30-0.82 fkfs=351) EOSINOPHILS ABSOLUTE COUNT (BEAKER) (test 0.13 K/ L 0.04-0.54 pthv=630) BASOPHILS ABSOLUTE COUNT (BEAKER) (test 0.07 K/ L 0.01-0.08 zgtj=239) IMMATURE GRANULOCYTES-RELATIVE PERCENT (BEAKER) 0 % 0-1 (test auct=0455) POCT-GLUCOSE [id number] 16:38:00 Test Item Value Reference Range Comments POC-GLUCOSE METER (BEAKER) 106 mg/dL 70-110 TESTED AT [address] (test rdgm=3465) [facility] [address] [id number] 06:15:00 Test Item Value Reference Range Comments PARTIAL THROMBOPLASTIN TIME (BEAKER) (test 40.6 seconds 22.5-36.0 asaq=453) PROTHROMBIN TIME/[id number] 06:14:00 Test Item Value Reference Range Comments PROTIME (BEAKER) (test fizp=943) 15.5 seconds 11.7-14.7 INR (BEAKER) (test ffai=247) 1.2 <=5.9 RECOMMENDED COUMADIN/WARFARIN INR THERAPY RANGESSTANDARD DOSE: 2.0 - 3.0 Includes: PROPHYLAXIS forvenous thrombosis, systemic embolization; TREATMENT for venous thrombosis and/or pulmonary embolus.HIGH RISK: Target INR is 2.5-3.5 for patients with mechanical heart valves.PROTHROMBIN TIME/[id number] 07:07: 00 Test Item Value Reference Range Comments PROTIME (BEAKER) (test kprd=660) 15.4 seconds 11.7-14.7 INR (BEAKER) (test gicm=346) 1.2 <=5.9 RECOMMENDED COUMADIN/WARFARIN INR THERAPY RANGESSTANDARD DOSE: 2.0 - 3.0 Includes: PROPHYLAXIS forvenous thrombosis, systemic embolization; TREATMENT for venous thrombosis and/or pulmonary embolus.HIGH RISK: Target INR is 2.5-3.5 for patients with mechanical heart valves.[id number] 07:07:00 Test Item Value Reference Range Comments PARTIAL THROMBOPLASTIN TIME (BEAKER) (test 33.4 seconds 22.5-36.0 hcuu=715) RAD, CHEST, 1 VIEW, NON [id number] 01:35:00Reason for exam:->preopShould this be performed at the bedside?->YesFINAL REPORT Comparison examination: None No pneumothorax, focal pulmonary consolidation, or significant pleural effusion. Normal cardiomediastinal contours. Demineralized skeleton. Multiple old healed left rib fractures. Normal soft tissues. Impression: No acute abnormality. Signed: Edmar Carmona MDReport Verified Date/Time: 06/28/2017 01:35:21 Reading Location: [address] Ortho Consult Reading Room Electronically signed by: EDMAR CARMONA M.D. on 06/28 01:35 AMBASIC METABOLIC [id number] 00:18:00 Test Item Value Reference Range Comments SODIUM (BEAKER) (test 133 meq/L 136-145 tdse=811) POTASSIUM (BEAKER) (test 3.8 meq/L 3.5-5.1 Specimen slightly ejta=152) hemolyzed CHLORIDE (BEAKER) (test 99 meq/L 98-107 yygm=705) CO2 (BEAKER) (test 25 meq/L 22-29 adev=749) BLOOD UREA NITROGEN 5 mg/dL 7-21 (BEAKER) (test nfej=402) CREATININE (BEAKER) (test 0.71 mg/dL 0.57-1.25 Specimen slightly zmjx=909) hemolyzed GLUCOSE RANDOM (BEAKER) 96 mg/dL 70-105 (test ouwd=595) CALCIUM (BEAKER) (test 9.4 mg/dL 8.4-10.2 odty=051) EGFR (BEAKER) (test 110 mL/min/1.73 sq m ESTIMATED GFR IS NOT iwit=3316) ACCURATE CREATININE CLEARANCE IN PREDICTING GLOMERULAR FILTRATION RATE. ESTIMATED GFR IS NOT APPLICABLE FOR DIALYSIS PATIENTS. [id number] 00:08:00 Test Item Value Reference Range Comments PARTIAL THROMBOPLASTIN TIME (BEAKER) (test 38.7 seconds 22.5-36.0 wsyz=140) PROTHROMBIN TIME/[id number] 00:07:00 Test Item Value Reference Range Comments PROTIME (BEAKER) (test qbun=038) 13.6 seconds 11.7-14.7 INR (BEAKER) (test gwwc=631) 1.1 <=5.9 RECOMMENDED COUMADIN/WARFARIN INR THERAPY RANGESSTANDARD DOSE: 2.0 - 3.0 Includes: PROPHYLAXIS forvenous thrombosis, systemic embolization; TREATMENT for venous thrombosis and/or pulmonary embolus.HIGH RISK: Target INR is 2.5-3.5 for patients with mechanical heart valves.CBC W/PLT COUNT & AUTO [id number] 23:56:00 Test Item Value Reference Range Comments WHITE BLOOD CELL COUNT (BEAKER) (test ciio=170) 9.8 K/ L 3.5-10.5 RED BLOOD CELL COUNT (BEAKER) (test azsv=205) 4.08 M/ L 4.63-6.08 HEMOGLOBIN (BEAKER) (test spym=613) 13.7 GM/DL 13.7-17.5 HEMATOCRIT (BEAKER) (test ypnx=347) 40.0 % 40.1-51.0 MEAN CORPUSCULAR VOLUME (BEAKER) (test runt=521) 98.0 fL 79.0-92.2 MEAN CORPUSCULAR HEMOGLOBIN (BEAKER) (test 33.6 pg 25.7-32.2 akfo=254) MEAN CORPUSCULAR HEMOGLOBIN CONC (BEAKER) (test 34.3 GM/DL 32.3-36.5 imkh=544) RED CELL DISTRIBUTION WIDTH (BEAKER) (test 12.6 % 11.6-14.4 hglb=332) PLATELET COUNT (BEAKER) (test gksw=580) 408 K/CU MM 150-450 MEAN PLATELET VOLUME (BEAKER) (test dlso=369) 9.0 fL 9.4-12.4 NUCLEATED RED BLOOD CELLS (BEAKER) (test 0 /100 WBC 0-0 ftgo=449) NEUTROPHILS RELATIVE PERCENT (BEAKER) (test 61 % tgia=926) LYMPHOCYTES RELATIVE PERCENT (BEAKER) (test 29 % aihr=758) MONOCYTES RELATIVE PERCENT (BEAKER) (test 8 % bdiq=028) EOSINOPHILS RELATIVE PERCENT (BEAKER) (test 1 % uvyo=194) BASOPHILS RELATIVE PERCENT (BEAKER) (test 1 % wqin=955) NEUTROPHILS ABSOLUTE COUNT (BEAKER) (test 5.98 K/ L 1.78-5.38 thyi=549) LYMPHOCYTES ABSOLUTE COUNT (BEAKER) (test 2.81 K/ L 1.32-3.57 avps=323) MONOCYTES ABSOLUTE COUNT (BEAKER) (test 0.82 K/ L 0.30-0.82 rcql=796) EOSINOPHILS ABSOLUTE COUNT (BEAKER) (test 0.13 K/ L 0.04-0.54 lwtu=951) BASOPHILS ABSOLUTE COUNT (BEAKER) (test 0.08 K/ L 0.01-0.08 vodc=240) IMMATURE GRANULOCYTES-RELATIVE PERCENT (BEAKER) 0 % 0-1 (test nrtd=0861)
[2019-10-12] MEDS ORDERED: MORPHINE 2 MG/ML SYR ONE (11:47)
[2019-10-12] MEDS ORDERED: ONDANSETRON 4 MG/2 ML VIAL ONE (11:47)
[2019-10-12] MEDS ORDERED: NA CHLORIDE 0.9% 500 ML ONE (11:48)
[2019-10-12 11:50] LABS: Basophils % 1.2 % (0-1.3); Hematocrit 43.6 % (39.6-49.0); Lymphocytes % 24.5 % (15.3-44.8); RBC Red Blood Cell Count 4.54 M/uL (4.33-5.43)
[2019-10-12 11:55] LABS: Protime INR 0.96
[2019-10-12 12:01] LABS: BUN Blood Urea Nitrogen 7 mg/dL (7-18); Bicarbonate 29 mmol/L (21-32); Glucose Level 86 mg/dL (74-106); Potassium 3.8 mmol/L (3.5-5.1); Sodium Level 136 mmol/L (136-145)
--- NOTE | 2019-10-12 12:46 | RAD REPORT ---
EXAM DESCRIPTION: US - Lower Extremity Artery Uni Ltd - 10/12/2019 12:34 pm CLINICAL HISTORY: PAIN Left lower extremity pain and swelling COMPARISON: Lower Extremity Arterial Bilat dated 06/27/2017 FINDINGS: Doppler interrogation of the left lower extremity arterial system was performed. Moderate to severe multisegmental, multifocal atheromatous plaquing is present. No flow detected in the superficial femoral artery proximal and mid aspects most compatible with microsoft bi developer renae occlusion. Distal flow beginning at the distal SFA is visualized which is monophasic, likely rela dejuan to collateral reconstitution of flow. IMPRESSION: Chronically occluded left SFA is proximal and mid aspect noted. Flow reconstitution via collateralization is suspected between the level of the distal SFA. Flow largely monophasic and decea sed. Severe atherosclerosis.
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
[2019-10-12] MEDS ORDERED: VANCOMYCIN/NS 1 gm 1 GM/250 ML BAG IV ONE (13:30)
--- NOTE | 2019-10-12 14:38 | P.HP ---
Certification for Inpatient With expected LOS: >2 Midnights Patient will require the following post-hospital care: Correction Practitioner: I am a practitioner with admitting privileges, knowledge of patient current condition, hospital course, and medical plan of care. Services: Services provided to patient in accordance with Admission requirements found in Title 42 Section 412.3 of the Code of Federal Regulations Patient History Date of Service: 10/12/19 Reason for admission: left leg pain and swelling History of Present Illness: 74-year-old male past medical history of HTN, chronic tobacco use, history of AFib on chronic anticoagulation with Eliquis and on amiodarone, however state he does not take any meds now , history of PAD s/p failed salvage angioplasty of RLE and resultant BKA last year a a facility in [place] -he is unable to say where ; presented for worsening pain and swelling in his left leg since last 3 weeks , pain continue to worsen with movt and later at rest . He has been taking Tylenol #3, Which is a leftover from left shoulder injuries, a vehicle for left leg pain. He presented today because of worsening pattern of pain. He denies any fever or chills. He denies any nausea vomiting no diarrhea. He states he has never had any angiogram or workup of his left leg in the past. He has not been seen any physician including [facility] since the last 1 year. Review of his old records show patient is supposed to be on Eliquis and amiodarone Surgery planning for possible amputation Allergies No Known Allergies Allergy (Verified 07/25/17 19:17) Home medications list reviewed: Yes Home Medications: Acetaminophen 650 mg PO Q6HP PRN 07/25/17 Amiodarone HCl [Pacerone] 200 mg PO DAILY 07/25/17 Apixaban [Eliquis] 5 mg PO BID 07/25/17 Ascorbic Acid 500 mg PO BID 07/25/17 Aspirin [Aspirin EC 81 MG] 81 mg PO DAILY 07/25/17 Atorvastatin Calcium [Lipitor] 80 mg PO BEDTIME 07/25/17 Diphenhydramine [Benadryl*] 25 mg PO Q6HP PRN 07/25/17 Folic Acid 1 mg PO DAILY 07/25/17 Gabapentin [Neurontin*] 100 mg PO TID 07/25/17 Magnesium Oxide [Magnesium] 400 mg PO DAILY 07/25/17 Metoprolol Tartrate [Lopressor*] 50 mg PO BID 07/25/17 Multivitamin [Daily Multiple Vitamin] 1 each PO DAILY 07/25/17 Mupirocin Oint [Bactroban 2% Ointment*] 1 appl TOP DAILY 07/25/17 Tramadol HCl [Ultram] 50 mg PO Q6HP PRN 07/25/17 Zinc Sulfate [Zinc Sulfate*] 220 mg PO DAILY 07/25/17 Collagenase [Santyl Ointment*] 1 appl TOP DAILY #1 tube 08/10/17 Iron/FA/Vit B-Com W/C [Hemocyte Plus*] 1 tab PO DAILY WITH BREAKFAST #30 tab 04/19 Multivit,Ther Iron,Ca,FA & Min [Centrum Tablet*] 1 tab PO DAILY #30 tab - Past Medical/Surgical History Diabetic: No -: Afib -: PAD -: Blind L eye -: HTN -: R and L finger surgery -: R AKA -: L cataract surgery -: Neck surgery -: Brain injury - Family History Family History: Reviewed- Non-Contributory (No history of CAD) - Family History Father -: Heart disease, Hypertension, Stroke, Seizures, Blood disorders Mother -: Heart disease, Lung disease, GI disease, Seizures - Social History Smoking Status: Current every day smoker Counseled patient to stop smoking for: more than 10 minutes Smoking therapy provided: Yes Alcohol use: No CD- Drugs: No Caffeine use: Yes Review of Systems 10-point ROS is otherwise unremarkable Physical Examination - Physical Exam General: Alert, In no apparent distress, Oriented x3, Other (Thin built ) HEENT: Atraumatic, Normocephalic, PERRLA, Mucous membr. moist/pink Neck: Supple, 2+ carotid pulse no bruit, JVD not distended Respiratory: Clear to auscultation bilaterally, Normal air movement Cardiovascular: Regular rate/rhythm, Normal S1 S2, Edema (LLE) Gastrointestinal: Normal bowel sounds, Soft and benign, Non-distended, Tenderness (LLE ) Musculoskeletal: Swelling (extending from distal 1/3 of LLE to entrie foot , plantar surface gangrene of lateral 4thand 5th digit), Erythema, Tenderness, Warmth, Other (right AKA) Neurological: Normal speech, Sensation intact, Cranial nerves 3-12 intact External genitalia: No lesions - Studies Laboratory Data (last 24 hrs) 10/12/19 11:34: PT 11.3, INR 0.96, APTT 36.1 10/12/19 11:34: Sodium 136, Potassium 3.8, BUN 7, Creatinine 0.66, Glucose 86 10/12/19 11:34: WBC 8.1, Hgb 14.7, Hct 43.6, Plt Count 241 Imagings Data: Laboratory Last Values WBC 8.1 K/uL (4.3-10.9) 10/12/19 11:34 RBC 4.54 M/uL (4.33-5.43) 10/12/19 11:34 Hgb 14.7 g/dL (13.6-17.9) 10/12/19 11:34 Hct 43.6 % (39.6-49.0) 10/12/19 11:34 MCV 96.1 fL (80-100) 10/12/19 11:34 MCH 32.4 pg (27.0-35.0) 10/12/19 11:34 MCHC 33.7 g/dL (32.0-36.0) 10/12/19 11:34 RDW 13.8 % (12.1-15.2) 10/12/19 11:34 Plt Count 241 K/uL (152-406) 10/12/19 11:34 MPV 8.0 fL (7.6-11.3) 10/12/19 11:34 Neutrophils % 68.0 % (41.7-73.7) 10/12/19 11:34 Lymphocytes % 24.5 % (15.3-44.8) 10/12/19 11:34 Monocytes % 5.3 % (3.3-12.3) 10/12/19 11:34 Eosinophils % 1.0 % (0-4.4) 10/12/19 11:34 Basophils % 1.2 % (0-1.3) 10/12/19 11:34 Absolute Neutrophils 5.5 K/uL (1.8-8.0) 10/12/19 11:34 Absolute Lymphocytes 2.0 K/uL (0.7-4.9) 10/12/19 11:34 Absolute Monocytes 0.4 K/uL (0.1-1.3) 10/12/19 11:34 Absolute Eosinophils 0.1 K/uL (0-0.5) 10/12/19 11:34 Absolute Basophils 0.1 K/uL (0-0.5) 10/12/19 11:34 PT 11.3 SECONDS (9.5-12.5) 10/12/19 11:34 INR 0.96 10/12/19 11:34 APTT 36.1 SECONDS (24.3-36.9) 10/12/19 11:34 Sodium 136 mmol/L (136-145) 10/12/19 11:34 Potassium 3.8 mmol/L (3.5-5.1) 10/12/19 11:34 Chloride 104 mmol/L (98-107) 10/12/19 11:34 Carbon Dioxide 29 mmol/L (21-32) 10/12/19 11:34 BUN 7 mg/dL (7-18) 10/12/19 11:34 Creatinine 0.66 mg/dL (0.55-1.3) 10/12/19 11:34 Estimated GFR > 90 mL/min (=/>90) 10/12/19 11:34 Glucose 86 mg/dL (74-106) 10/12/19 11:34 Lactic Acid 1.3 mmol/L (0.4-2.0) 10/12/19 11:50 Calcium 9.0 mg/dL (8.5-10.1) 10/12/19 11:34 Procalcitonin < 0.05 ng/mL (<0.50) 10/12/19 11:34 EKG-NSR, right BBB Assessment and Plan Discharge Plan: Home - Advance Directives Does patient have a Living Will: No Does patient have a Durable POA for Healthcare: No Physician Review: Patient Assessed, Agree with Above Assessment and Plan Physician Review Additional Text: # left leg pain-with edema likely due to chronic arterial insufficiency with impending lateral 2 toe digits gangrene -Given right BKA , it may be best to salvage flow of the left leg prior to surgical amputation - will consider vascular eval and angiogram - will discuss with general surgery - start emprical abx for now -start pain control with prn morphine elevated extremity for edema # Right BKA -no stump issues # HTN -not taking any meds, restart low dose Toprol # hx of atrial fib -in sinus rhthym now , restart amiodarone but hold Eliquis pedning any intervention -will do lovenox q12 -consult cardiology for eval # DVT prop- on A/C Time Spent Managing Pts Care (In Minutes): 65
[2019-10-12] MEDS ORDERED: ACETAMINOPHEN 500 MG TAB PO PRN (14:54)
[2019-10-12] MEDS ORDERED: ALBUTEROL 2.5 MG/3 ML NEB SOL NEB PRN (14:54)
[2019-10-12] MEDS ORDERED: MORPHINE 2 MG/ML SYR IV PRN (14:54)
[2019-10-12] MEDS ORDERED: ONDANSETRON 4 MG/2 ML VIAL IV PRN (14:54)
[2019-10-12] MEDS ORDERED: FUROSEMIDE 40 MG/4 ML VIAL IV ONE (15:02)
[2019-10-12] MEDS ORDERED: HYDRALAZINE HCL 20 MG/ML VIAL IV PRN (15:02)
[2019-10-12] MEDS ORDERED: VANCOMYCIN 1.25 GM in NA CHLORIDE 0.9% 250 ML IVPB SCH (16:00)
--- NOTE | 2019-10-12 16:48 | EKG ---
Test Date: 2019-10-12 Test Time: 12:30:49 Database Administration Project Manager: LONNY MEASUREMENT RESULTS: Intervals: Rate: 64 AR: 162 QRSD: 94 QT: 416 QTc: 429 [place]: P: 80 AR: 162 QRS: 52 T: 72 INTERPRETIVE STATEMENTS: Normal sinus rhythm Incomplete right bundle branch block Septal infarct, age undetermined Abnormal ECG Compared to ECG 06/04/2018 19:52:22 Sinus bradycardia no longer present Myocardial infarct finding still present Electronically Signed On 10-12-19 16:47:15 HYDRO ELECTRIC STATION OPERATOR by Chapin Allen
[2019-10-12] MEDS: MORPHINE 2 MG/ML SYR IV PRN ×2 (17:00→23:11)
[2019-10-12 18:24] VITALS: BMI 17.7
[2019-10-12] MEDS: IPRATROPIUM BROM 0.5MG/2.5ML NEB SCH (19:50)
[2019-10-12] MEDS: GUAIFENESIN 600 MG SA TAB PO SCH (20:28)
[2019-10-12] MEDS: FAMOTIDINE 20 MG TAB PO SCH (20:29)
[2019-10-12] MEDS: Oxycodone HCl/Acetaminophen 1 TAB TAB PO PRN (20:29)
[2019-10-12] MEDS: METOPROLOL TAR 50 MG TAB PO SCH (20:29)
[2019-10-12] MEDS: ATORVASTATIN 80 MG TAB PO SCH (20:29)
[2019-10-12] MEDS: GABAPENTIN 100 MG CAP PO SCH (20:29)
[2019-10-12] MEDS: ENOXAPARIN 60 MG/0.6 ML SQ SCH (20:30)
--- NOTE | 2019-10-13 00:29 | CON ---
Date of Consultation: 10/12/2019 Reason For Consult: Gangrenous changes of the left foot. History Of Present Illness: This is the case of a 74-year-old patient with a history of atrial fibri llation, hypertension, history of severe peripheral vascular disease to the point that he had a right above-knee amputation on the right side. Now he comes with symptoms similar to the one he has on ri [facility] side, this time on the left foot. At this time he just noticed the pain and blueness of his toes . His vascular surgeons are in [place], did an angioplasty he claims and also [facility] he does not remember exactly which leg or both. 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 Past Medical History: Cardiac disease as mentioned above. Severe peripheral vascular disease, hyper tension, atrial fibrillation. Past Surgical History: Include right above-knee amputation, left eye cataract. Neck and brain surge ry, he does not remember what kind of surgery was that. Angioplasty, angiograms. Family History: Includes heart disease, hypertension, stroke. He smoke. He does not drink alcohol. Review of Systems: 10-points, otherwise unremarkable. Physical Examination: General: Patient is awake and alert. HEENT: Pupils are equal and reactive, anicteric. Neck: Supple. Chest: Clear. Abdomen: Soft and depressible. Extremities: Patient has a right above-knee amputation, well healed. Left side shows no pulses, florence salis pedis and posterior tibialis. There are gangrenous changes of the toes and distal foot. Laboratory Data: Blood work shows WBC count of 8.1 with INR of 0.96. Potassium 3.8. Assessment: A 74-year-old patient, with gangrenous changes of the left foot area. Last time he said he waited a long time and ended up with above-knee amputation. He does not want to wait at this kathi e. He wants below-knee amputation. He knows he is going to get it since he has tried vascular surge ons to save his extremities and so far he has not been able to do so. The patient will need a medica l evaluation and cardiac clearance in order to proceed. I still explained to him the benefits, alter natives, and risks of left below-knee amputation which include, but not limited to infection, bleedin g, damage to adjacent structures, anesthesia complications, failure of the flaps, NH, even . He also understands this may not relieve any symptoms. He might need more than one surgical interventi on. We questioned him about atrial fibrillation and about peripheral vascular disease. He does not recall taking any blood thinners. We are going to try to check with the primary doctor to see if zoran t is true. KATALINA/KEMI Voice ID: [id number] Report ID: [id number]
[2019-10-13] MEDS: IPRATROPIUM BROM 0.5MG/2.5ML NEB SCH ×4 (01:35→20:00)
[2019-10-13] MEDS: VANCOMYCIN 1 GM in NA CHLORIDE 0.9% 250 ML IVPB SCH ×2 (01:43→13:57)
[2019-10-13] MEDS: METOPROLOL TAR 50 MG TAB PO SCH ×2 (05:39→17:05)
[2019-10-13] MEDS: MORPHINE 2 MG/ML SYR IV PRN ×3 (05:45→21:28)
[2019-10-13 06:39] LABS: Absolute Lymphocytes (CBC) 2.9 K/uL (0.7-4.9); Basophils % 1.1 % (0-1.3); Hematocrit 41.8 % (39.6-49.0); MPV 7.9 fL (7.6-11.3); RBC Red Blood Cell Count 4.37 M/uL (4.33-5.43)
[2019-10-13 06:55] LABS: ALT/SGPT 10 U/L (12-78); AST/SGOT 19 U/L (15-37); Albumin 3.4 g/dL (3.4-5.0); Alkaline Phosphatase 83 U/L (45-117); BUN Blood Urea Nitrogen 12 mg/dL (7-18); Bicarbonate 26 mmol/L (21-32); Bilirubin Total 0.6 mg/dL (0.2-1.0); Glucose Level 76 mg/dL (74-106); Potassium 3.7 mmol/L (3.5-5.1); Protein, Total 7.2 g/dL (6.4-8.2); Sodium Level 139 mmol/L (136-145)
[2019-10-13] MEDS: GUAIFENESIN 600 MG SA TAB PO SCH ×2 (08:19→21:28)
[2019-10-13] MEDS: GABAPENTIN 100 MG CAP PO SCH ×3 (08:19→21:27)
[2019-10-13] MEDS: FAMOTIDINE 20 MG TAB PO SCH ×2 (08:19→21:27)
[2019-10-13] MEDS: ENOXAPARIN 60 MG/0.6 ML SQ SCH (08:20)
[2019-10-13] MEDS: AMIODARONE HCL 200 MG TAB PO SCH (08:20)
[2019-10-13] MEDS: Oxycodone HCl/Acetaminophen 1 TAB TAB PO PRN (08:20)
[2019-10-13] MEDS: NICOTINE 21 MG/PAT TD SCH (08:21)
[2019-10-13] MEDS ORDERED: BUPIVACAINE 0.75% (PF) 2 ML SP ONE ×2 (10:10→12:54)
[2019-10-13] MEDS ORDERED: LIDOCAINE 2% MPF 5 ML VIAL ONE ×2 (10:14→10:28)
[2019-10-13] MEDS ORDERED: MIDAZOLAM HCL 2 MG/2 ML INJ ONE (10:14)
[2019-10-13] MEDS ORDERED: propofoL 200 MG/20 ML VIAL IV ONE (10:14)
[2019-10-13] MEDS ORDERED: FENTANYL CITR 100 MCG/2 ML ONE (10:14)
[2019-10-13] MEDS ORDERED: Phenylephrine HCl 10 MG/ML 1 ML VIAL ONE (10:33)
[2019-10-13] MEDS ORDERED: NS 0.9% VIAL 20 ML ONE (10:34)
[2019-10-13] MEDS ORDERED: EPHEDRINE SULF 50 MG/ML VIAL ONE (10:34)
[2019-10-13] MEDS ORDERED: Ringers Lactate 1,000 ML IV ONE (10:42)
--- NOTE | 2019-10-13 11:40 | CON ---
History Of Present Illness: Mr. Santoyo is 74, came to the hospital with pain in his left foot. He h as a previous right [id number] amputation. He has had vascular surgeons evaluate him at [facility] and there is no revascularization intervention available on that side. We do not have records of those doctors. Apparently seen at the [facility] once they transferred him to [facility] that was w hen he ended up with a right [id number] amputation. He is said to have atrial fibrillation, but he is in sinus rhythm now. His only medication listed is Tylenol. No prescription medicines. He is normotensive. Does not have evidence of diabetes or dyslipidemia. Does not smoke now. Denies havi ng chest pain or shortness of breath. His only complaint is lots of pain in the left foot. Physical Examination: General: He is 6 feet 1 inch, 134 pounds. Alert, oriented, pleasant, not in distress. Lungs: Clear. Heart: Regular rate and rhythm. Vital Signs: Temperature 97.4, blood pressure 133/68, O2 saturation is normal without any supplement al oxygen. Diagnostic Studies: His EKG showed sinus rhythm, incomplete right bundle, old inferior infarction. Impression: The patient is stable enough to undergo general anesthesia and amputation according to Sonali Kang. Doppler studies would indicate there is no opportunities for revascularization available consistent with his previous history. I do not recommend doing an angiogram before the amp utation. KYRA/KEMI Voice ID: [id number] Report ID: [id number]
[2019-10-13] MEDS: Ringers Lactate 1,000 ML IV ONE ×2 (12:06→12:09)
--- NOTE | 2019-10-13 12:06 | P.BOP ---
Preoperative diagnosis: Left foot gangrene Postoperative diagnosis: same Primary procedure: Left below knee amputation [employer]: BINA ROCHA (Jorge) Estimated blood loss: <100cc Specimen: foot Findings: as above Anesthesia: Spinal Complications: None Drain(s): EZEQUIEL drain Transferred to: Recovery Room Condition: Good
[2019-10-13] MEDS ORDERED: HYDROMORPHONE HCL 1 MG/ML INJ ONE (13:28)
[2019-10-13] MEDS ORDERED: ONDANSETRON 4 MG/2 ML VIAL ONE (13:28)
--- NOTE | 2019-10-13 19:23 | P.PN ---
Subjective Date of Service: 10/13/19 Chief Complaint: left leg pain and swelling Subjective: No new changes, Doing well Review of Systems General: Unremarkable Eyes: Unremarkable ENT: Unremarkable Respiratory: Unremarkable Cardiovascular: Unremarkable Musculoskeletal: Leg Pain, Foot Pain Neurological: Unremarkable Lymphatics: Unremarkable Physical Examination - Vital Signs Temperature: 97.4 F Blood Pressure: 142/63 Pulse: 61 Respirations: 16 Pulse Ox (%): 96 - Physical Exam General: Alert, In no apparent distress, Oriented x3, Cooperative HEENT: Atraumatic, Normocephalic, PERRLA, Mucous membr. moist/pink, EOMI Neck: Supple, 2+ carotid pulse no bruit, JVD not distended Respiratory: Clear to auscultation bilaterally, Normal air movement Cardiovascular: No edema, Normal pulses, Regular rate/rhythm, Normal S1 S2 Gastrointestinal: Normal bowel sounds, No ascites, No tenderness Musculoskeletal: No clubbing, No swelling, Tenderness, Other (cold to touch on the left leg) Integumentary: No rashes, No breakdown Neurological: Normal gait, Normal speech, Normal strength at 5/5 x4 extr, Normal tone, Normal affect Assessment And Plan - Current Problems (Diagnosis) (1) Ischemic leg Current Visit: Yes Status: Acute (2) HTN (hypertension), benign Current Visit: Yes Status: Acute (3) Afib Current Visit: Yes Status: Acute (4) Hx of AKA (above knee amputation) Onset Date: 09/06/17 Current Visit: No Status: Acute - Plan # left leg pain -stasis due to ischemic leg. He does not want revascularization this moment. -scheduled for BKA today. - continued emprical abx for now -start pain control with prn morphine # Right BKA -no stump issues # HTN -not taking any meds, restart low dose Toprol # hx of atrial fib -in sinus rhthym now , restart amiodarone but hold Eliquis pedning any intervention -DC lovenox q12 for surgery -consult cardiology for eval # DVT prop- on A/C Discharge Plan: [facility] - Code Status/Comfort Care Code Status: Full Code Physician Review: Patient Assessed, Agree with Above Assessment and Plan Critical Care: No
[2019-10-13] MEDS: ATORVASTATIN 80 MG TAB PO SCH (21:27)
[2019-10-13] MEDS: ENSURE ENLIVE 237 ML CAN PO SCH (21:28)
--- NOTE | 2019-10-13 23:58 | OP ---
Date of Procedure: 10/13/2019 Surgeon: Jarocho Kang MD Diagnosis: Left foot gangrene. Postoperative Diagnosis: Left foot gangrene. Procedures: Left below-knee amputation. Anesthesia: Spinal with sedation. Drains: EZEQUIEL #10. Indications: This is a case of a male who comes to us for left foot gangrene. He has history of amp utations in the past in the opposite foot, so he certainly relates it with that, but at this time he is going to go for left below-knee amputation with benefits, alternatives, and risks including, but n ot limited to infection, bleeding, damage to adjacent structures, anesthesia complication, flap failu re, [place], and even . He also understands this may not relieve the symptoms. He might need more t manzano one surgical intervention. He understood, signed the consent. Description Of Procedure: Patient was brought to the operating room, placed in supine position. Ane sthesia was given without complication. Left leg was prepped and draped in a sterile fashion. Befor e that, patient has spinal anesthesia by the anesthesiologist, please refer to their Op-report. The skin incision was then done about 12 cm below the tibial tuberosity extending medial and lateral arou nd the edge of the gastrocnemius muscle. The skin incision was extended distally to about 15 cm. Th e skin and subcutaneous tissue were incised down to fascia. Veins were identified and ligated. The fascia and muscle then divided with the Bovie cauterizer at the level of the anterior skin incision. The muscle of the anterior and lateral compartments were carefully divided. Anterior tibial vessel was identified and ligated. The tibia periosteum was incised circumferentially and using periosteal elevator we proceeded to strip the periosteum proximally for about 2 cm. The tibia was transected wi th the help of a Gigli saw and then the anterior area was beveled. The fibula was then exposed, diss ected circumferentially, and transected with a bone cutter about 2 cm proximal to the tibia. The amp utation was then completed transecting the soleus muscle obliquely and the grasped extremis muscle. Sharp bony edges were filed. The patient had an AmnioFill application and then a EZEQUIEL drain coming fro m the another site and secured in place with 3-0 nylon. The fascia of the anterior and posterior mus natalie flaps were approximated with Vicryl. Then, subcutaneous tissue approximated with 3-0 chromic and the skin with kai. Sponge count and instrument counts were correct. Patient tolerated the proc edure well. Patient was sent to recovery in stable condition. KATALINA/KEMI Voice ID: [id number] Report ID: [id number]
[2019-10-14] MEDS: VANCOMYCIN 1 GM in NA CHLORIDE 0.9% 250 ML IVPB SCH ×2 (01:46→12:39)
[2019-10-14] MEDS: IPRATROPIUM BROM 0.5MG/2.5ML NEB SCH ×4 (01:50→19:40)
[2019-10-14] MEDS: Oxycodone HCl/Acetaminophen 1 TAB TAB PO PRN (05:04)
[2019-10-14] MEDS: METOPROLOL TAR 50 MG TAB PO SCH ×2 (05:05→17:12)
[2019-10-14 06:02] LABS: Absolute Lymphocytes (CBC) 1.8 K/uL (0.7-4.9); Basophils % 0.5 % (0-1.3); Hematocrit 36.2 % (39.6-49.0); Lymphocytes % 17.4 % (15.3-44.8); MPV 8.2 fL (7.6-11.3); RBC Red Blood Cell Count 3.78 M/uL (4.33-5.43)
[2019-10-14 06:17] LABS: BUN Blood Urea Nitrogen 10 mg/dL (7-18); Bicarbonate 29 mmol/L (21-32); Glucose Level 128 mg/dL (74-106); Potassium 3.9 mmol/L (3.5-5.1); Sodium Level 136 mmol/L (136-145)
[2019-10-14] MEDS: ALBUTEROL 2.5 MG/3 ML NEB SOL NEB PRN ×3 (07:35→19:40)
[2019-10-14] MEDS: FAMOTIDINE 20 MG TAB PO SCH ×2 (07:59→20:55)
[2019-10-14] MEDS: GUAIFENESIN 600 MG SA TAB PO SCH ×2 (07:59→20:55)
[2019-10-14] MEDS: GABAPENTIN 100 MG CAP PO SCH ×3 (07:59→20:55)
[2019-10-14] MEDS: AMIODARONE HCL 200 MG TAB PO SCH (07:59)
[2019-10-14] MEDS: ENSURE ENLIVE 237 ML CAN PO SCH ×2 (08:00→21:01)
[2019-10-14] MEDS: NICOTINE 21 MG/PAT TD SCH (08:01)
[2019-10-14] MEDS: AMLODIPINE 5 MG TAB PO SCH (10:28)
--- NOTE | 2019-10-14 15:27 | P.PN ---
Subjective Date of Service: 10/14/19 Chief Complaint: left leg pain and swelling Subjective: No new changes, Doing well Review of Systems General: Unremarkable Eyes: Unremarkable ENT: Unremarkable Respiratory: Unremarkable Cardiovascular: Unremarkable Gastrointestinal: Unremarkable Musculoskeletal: Leg Pain Integumentary: Lesions Neurological: Unremarkable Physical Examination - Vital Signs Temperature: 98.9 F Blood Pressure: 121/60 Pulse: 64 Respirations: 18 Pulse Ox (%): 96 - Physical Exam General: Alert, In no apparent distress, Oriented x3, Cooperative HEENT: Atraumatic, Normocephalic, PERRLA, Mucous membr. moist/pink, EOMI Neck: Supple, 2+ carotid pulse no bruit, JVD not distended Respiratory: Clear to auscultation bilaterally, Normal air movement Cardiovascular: No edema, Normal pulses, Regular rate/rhythm, Normal S1 S2, No murmurs Gastrointestinal: Normal bowel sounds, Soft and benign, Non-distended, No tenderness Musculoskeletal: Other (right AKA. Left BKA. Surgical wound appears to be dry. No active bleed) Neurological: Normal speech, Normal strength at 5/5 x4 extr, Normal tone, Normal affect Assessment And Plan - Current Problems (Diagnosis) (1) Ischemic leg Current Visit: Yes Status: Acute (2) HTN (hypertension), benign Current Visit: Yes Status: Acute (3) Afib Current Visit: Yes Status: Acute (4) Hx of AKA (above knee amputation) Onset Date: 09/06/17 Current Visit: No Status: Acute - Plan 1. left leg pain -He does not want revascularization this moment. General surgeon performed left BKA. - continued emprical abx for now -start pain control with prn morphine -continue PT and OT 2. Right BKA -no stump issues 3. HTN -not taking any meds, restart low dose Toprol 4. hx of atrial fib -in sinus rhthym now , restart amiodarone but hold Eliquis pedning any intervention -DC lovenox q12 for surgery -consult cardiology for eval 5. Left shoulder pain. X-ray was ordered. On pain medications. DVT prop- on A/C This patient underwent left BKA. He needs PT and OT. gastroenterology manager was consulted for placement. Physician Review: Patient Assessed, Agree with Above Assessment and Plan
--- NOTE | 2019-10-14 15:53 | RAD REPORT ---
EXAM DESCRIPTION: RAD - Shoulder Left 2 View - 10/14/2019 3:41 pm CLINICAL HISTORY: Left shoulder pain FINDINGS: No acute fracture or dislocation is seen. Osteoporosis. Mild osteoarthritis AC joint
--- NOTE | 2019-10-14 17:05 | PN ---
Date of Progress Note: 10/14/2019 Subjective: Status post below-knee amputation. The patient doing well. No complaint. Objective: Chest: Clear. Abdomen: Soft and depressible. Intact surgical sites. Laboratory Data: Blood work shows WBC count of 10, hemoglobin of 12.3. Plan: Rehab, incentive spirometry. HM/MODL Voice ID: [id number] Report ID: [id number]
[2019-10-14] MEDS: ATORVASTATIN 80 MG TAB PO SCH (20:55)
[2019-10-14] MEDS: MORPHINE 2 MG/ML SYR IV PRN (20:56)
[2019-10-14] MEDS: ZOLPIDEM TARTRATE 5 MG TABLET PO PRN (20:59)
[2019-10-15] MEDS: VANCOMYCIN 1 GM in NA CHLORIDE 0.9% 250 ML IVPB SCH ×2 (00:36→12:35)
[2019-10-15] MEDS: IPRATROPIUM BROM 0.5MG/2.5ML NEB SCH ×4 (02:10→19:48)
[2019-10-15] MEDS: METOPROLOL TAR 50 MG TAB PO SCH ×2 (05:52→17:44)
[2019-10-15] MEDS: AMIODARONE HCL 200 MG TAB PO SCH (06:38)
[2019-10-15] MEDS: ALBUTEROL 2.5 MG/3 ML NEB SOL NEB PRN (07:46)
[2019-10-15] MEDS: GUAIFENESIN 600 MG SA TAB PO SCH ×2 (08:35→20:43)
[2019-10-15] MEDS: AMLODIPINE 5 MG TAB PO SCH (08:36)
[2019-10-15] MEDS: NICOTINE 21 MG/PAT TD SCH (08:36)
[2019-10-15] MEDS: GABAPENTIN 100 MG CAP PO SCH ×3 (08:36→20:43)
[2019-10-15] MEDS: FAMOTIDINE 20 MG TAB PO SCH ×2 (08:36→20:44)
[2019-10-15] MEDS: ENSURE ENLIVE 237 ML CAN PO SCH ×2 (08:37→20:44)
--- NOTE | 2019-10-15 08:52 | EKG ---
Test Date: 2019-10-15 Test Time: 06:21:39 Janitorial Tech: RT Lyon MEASUREMENT RESULTS: Intervals: Rate: 141 [place]: QRSD: 86 QT: 318 QTc: 487 [place]: P: [place]: QRS: -14 T: 71 INTERPRETIVE STATEMENTS: Atrial fibrillation with rapid ventricular response Nonspecific ST abnormality, probably digitalis effect Abnormal ECG Compared to ECG 10/12/2019 12:30:49 ST (T wave) deviation now present Sinus rhythm no longer present Incomplete right bundle-branch block no longer present Myocardial infarct finding no longer present Electronically Signed On 10-15-19 08:51:24 WAREHOUSE TEAM MEMBER by Chapin Allen
[2019-10-15] MEDS: LIDOCAINE 4% PATCH TOP SCH (09:46)
[2019-10-15] MEDS: MORPHINE 2 MG/ML SYR IV PRN (14:46)
--- NOTE | 2019-10-15 17:37 | P.PN ---
Subjective Date of Service: 10/15/19 Chief Complaint: left leg pain and swelling Subjective: No new changes, Doing well Review of Systems General: Weakness Eyes: Unremarkable ENT: Unremarkable Respiratory: Unremarkable Cardiovascular: Unremarkable Gastrointestinal: Unremarkable Musculoskeletal: Shoulder Pain, Leg Pain Integumentary: Lesions Neurological: Unremarkable Physical Examination - Vital Signs Temperature: 99 F Blood Pressure: 111/58 Pulse: 114 Respirations: 18 Pulse Ox (%): 97 - Physical Exam General: Alert, In no apparent distress, Oriented x3, Cooperative HEENT: Atraumatic, Normocephalic, PERRLA, Mucous membr. moist/pink, EOMI Neck: Supple, 2+ carotid pulse no bruit, JVD not distended Respiratory: Clear to auscultation bilaterally, Normal air movement, Diminished Cardiovascular: No edema, Normal pulses, Regular rate/rhythm, Normal S1 S2 Gastrointestinal: Normal bowel sounds, Soft and benign, Non-distended Musculoskeletal: No clubbing, No swelling, Other (left BKA surgical wound appears to be dry and clean) Integumentary: No rashes, No significant lesion Neurological: Normal speech, Normal strength at 5/5 x4 extr, Normal tone, Sensation intact Assessment And Plan - Current Problems (Diagnosis) (1) Ischemic leg Current Visit: Yes Status: Acute (2) HTN (hypertension), benign Current Visit: Yes Status: Acute (3) Afib Current Visit: Yes Status: Acute (4) Hx of AKA (above knee amputation) Onset Date: 09/06/17 Current Visit: No Status: Acute - Plan 1. Ischemic leg-left -He does not want revascularization this moment. General surgeon then performed left BKA. - continued emprical abx for now -C/W pain medication -continue PT and OT 2. A fib with RVR -patient experienced episodic a febrile with RVR -will give IV metoprolol 5 mg every 6 hr as needed for heart rate more than 120. -Continue metoprolol 50 mg b.i.d. -resumed Eliquis 5 mg b.i.d. -stunt person has been following this patient 3. HTN -not taking any meds, on BB now -Added Norvasc 5 mg 4. Right BKA -no stump issues 5. Left shoulder pain. -X-ray demonstrated osteoarthritis. On pain medications. DVT prop- on A/C This patient underwent left BKA. He needs PT and OT. solar manager was consulted for placement. Physician Review: Patient Assessed, Agree with Above Assessment and Plan
[2019-10-15] MEDS: METOPROLOL TARTRATE 5 MG/5 ML INJ IV PRN (17:52)
[2019-10-15] MEDS: ATORVASTATIN 80 MG TAB PO SCH (20:43)
[2019-10-15] MEDS: APIXABAN 5 MG TABLET PO SCH (20:43)
[2019-10-15] MEDS: ZOLPIDEM TARTRATE 5 MG TABLET PO PRN (20:52)
[2019-10-16] MEDS: VANCOMYCIN 1.25 GM in NA CHLORIDE 0.9% 250 ML IVPB SCH ×2 (01:32→12:39)
[2019-10-16] MEDS: IPRATROPIUM BROM 0.5MG/2.5ML NEB SCH ×2 (01:53→08:11)
[2019-10-16] MEDS: METOPROLOL TARTRATE 5 MG/5 ML INJ IV PRN ×3 (02:28→07:44)
[2019-10-16] MEDS ORDERED: DIGOXIN 0.25 MG/ML AMP IV ONE (03:24)
[2019-10-16] MEDS: METOPROLOL TAR 50 MG TAB PO SCH (06:33)
[2019-10-16] MEDS: GABAPENTIN 100 MG CAP PO SCH ×3 (08:24→22:14)
[2019-10-16] MEDS: FAMOTIDINE 20 MG TAB PO SCH ×2 (08:24→22:15)
[2019-10-16] MEDS: AMIODARONE HCL 200 MG TAB PO SCH (08:24)
[2019-10-16] MEDS: GUAIFENESIN 600 MG SA TAB PO SCH ×2 (08:24→22:15)
[2019-10-16] MEDS: LIDOCAINE 4% PATCH TOP SCH (08:24)
[2019-10-16] MEDS: APIXABAN 5 MG TABLET PO SCH ×2 (08:24→22:15)
[2019-10-16] MEDS: NICOTINE 21 MG/PAT TD SCH (08:25)
[2019-10-16] MEDS: ENSURE ENLIVE 237 ML CAN PO SCH ×2 (08:25→21:00)
[2019-10-16] MEDS ORDERED: DILTIAZEM HCL 125 MG/25 ML VIAL IVP ONE (08:29)
[2019-10-16] MEDS ORDERED: LEVALBUTEROL 0.63 MG/3 ML NEB NEB PRN (08:37)
[2019-10-16] MEDS ORDERED: dilTIAZem HCL 25 MG/5 ML VIAL IV ONE ×2 (08:45→18:45)
[2019-10-16] MEDS ORDERED: LIDOCAINE 4% PATCH TOP SCH (09:00)
--- NOTE | 2019-10-16 09:05 | P.PN ---
Subjective Date of Service: 10/16/19 Chief Complaint: left leg pain and swelling Subjective: No new changes, Doing well Review of Systems General: Weakness Eyes: Unremarkable ENT: Unremarkable Respiratory: Unremarkable Cardiovascular: Unremarkable Gastrointestinal: Unremarkable Genitourinary: Unremarkable Musculoskeletal: Shoulder Pain, Leg Pain Integumentary: Unremarkable Neurological: Unremarkable Physical Examination - Vital Signs Temperature: 98.1 F Blood Pressure: 124/58 Pulse: 127 Respirations: 18 Pulse Ox (%): 96 - Physical Exam General: Alert, In no apparent distress, Oriented x3, Cooperative HEENT: Atraumatic, Normocephalic, PERRLA, Mucous membr. moist/pink Neck: Supple, 2+ carotid pulse no bruit, JVD not distended Respiratory: Clear to auscultation bilaterally, Normal air movement Cardiovascular: No edema, Normal S1 S2, No murmurs, Irregular heart rate/rhythm (tachycardia) Gastrointestinal: Hypoactive, Soft and benign, W/out hepatosplenomegaly, No ascites, No tenderness, No masses, No rebound, No guarding Musculoskeletal: No clubbing, No swelling, Other (left BKA and surgical wound appears to be dry and clean) Integumentary: No rashes, No breakdown Neurological: Normal speech, Normal strength at 5/5 x4 extr, Normal tone, Sensation intact, Cranial nerves 3-12 intact, Normal reflexes 2+ Assessment And Plan - Current Problems (Diagnosis) (1) Ischemic leg Current Visit: Yes Status: Acute (2) HTN (hypertension), benign Current Visit: Yes Status: Acute (3) Afib Current Visit: Yes Status: Acute (4) Hx of AKA (above knee amputation) Onset Date: 09/06/17 Current Visit: No Status: Acute - Plan 1. Ischemic leg-left -He does not want revascularization this moment. General surgeon then performed left BKA. - continued emprical abx for now -C/W pain medication. pain is under control -continue PT and OT 2. A fib with RVR -patient continues to experience episodic A fib with RVR -will give IV metoprolol 5 mg every 6 hr as needed for heart rate more than 120. -Increased metoprolol to 100 mg bid. Resumed Eliquis 5 mg bid -DC Duoneb neb as it caused tachycardia. -finance consultant is on board 3. HTN -DC Norvasc as his BP is soft -On BB in the setting of a fib 4. Right BKA -no stump issues 5. Left shoulder pain. -X-ray demonstrated osteoarthritis. On pain medications. I put on lidoderm patch, which seems to help DVT prop- on A/C This patient underwent left BKA. He needs PT and OT. meat manager was consulted for placement. He can be discharged once placement is available - Code Status/Comfort Care Code Status Assessed: Yes Code Status: Full Code Physician Review: Patient Assessed, Agree with Above Assessment and Plan Physician Review Additional Text: # left leg pain-with edema likely due to chronic arterial insufficiency with impending lateral 2 toe digits gangrene -Given right BKA , it may be best to salvage flow of the left leg prior to surgical amputation - will consider vascular eval and angiogram - will discuss with general surgery - start emprical abx for now -start pain control with prn morphine elevated extremity for edema # Right BKA -no stump issues # HTN -not taking any meds, restart low dose Toprol # hx of atrial fib -in sinus rhthym now , restart amiodarone but hold Eliquis pedning any intervention -will do lovenox q12 -consult cardiology for eval # DVT prop- on A/C
--- NOTE | 2019-10-16 09:23 | EKG ---
Test Date: 2019-10-15 Test Time: 18:43:10 Corporate Physical Security Supervisor: KODY MEASUREMENT RESULTS: Intervals: Rate: 72 UT: 156 QRSD: 88 QT: 380 QTc: 416 [place]: P: 77 UT: 156 QRS: 48 T: 41 INTERPRETIVE STATEMENTS: Normal sinus rhythm Normal ECG Compared to ECG 10/15/2019 06:21:39 Atrial fibrillation no longer present ST (T wave) deviation no longer present Electronically Signed On 10-16-19 09:22:50 BODY STRAIGHTENER by Chapin Allen
--- NOTE | 2019-10-16 11:42 | EKG ---
Test Date: 2019-10-16 Test Time: 01:55:10 Tree Scout: MARKOS MEASUREMENT RESULTS: Intervals: Rate: 122 [place]: QRSD: 90 QT: 282 QTc: 401 [place]: P: [place]: QRS: 23 T: 55 INTERPRETIVE STATEMENTS: Atrial fibrillation with rapid ventricular response RSR' or QR pattern in V1 suggests right ventricular conduction delay Septal infarct, age undetermined Abnormal ECG Compared to ECG 10/15/2019 18:43:10 RSR' in V1 or V2 now present Myocardial infarct finding now present Sinus rhythm no longer present Electronically Signed On 10-16-19 11:40:58 GROUP HOME SUPERVISOR by Chapin Allen
--- NOTE | 2019-10-16 14:25 | PN ---
Mr. Santoyo had atrial fibrillation briefly yesterday. He is back in sinus rhythm. He should continu e his apixaban and amiodarone. He received both diltiazem and digoxin. When those are used in conju nction with metoprolol and amiodarone, he can end up with profound bradycardia, so we want to be care ful with that. It did work, however. He is in sinus rhythm again. I would try to avoid digoxin and Cardizem in Mr. Santoyo. KYRA/KEMI Voice ID: [id number] Report ID: [id number]
[2019-10-16 18:47] LABS: Magnesium 2.2 mg/dL (1.8-2.4); Phosphorus 2.8 mg/dL (2.5-4.9)
[2019-10-16] MEDS ORDERED: DILTIAZEM HCL 125 MG/25 ML VIAL IVP PRN (18:56)
[2019-10-16] MEDS ORDERED: METOPROLOL TAR 50 MG TAB PO SCH (21:00)
[2019-10-16] MEDS: ATORVASTATIN 80 MG TAB PO SCH (22:15)
[2019-10-17] MEDS: VANCOMYCIN 1.25 GM in NA CHLORIDE 0.9% 250 ML IVPB SCH ×2 (02:36→12:58)
[2019-10-17 03:34] VITALS: O2SAT 99
[2019-10-17 04:36] LABS: RBC Red Blood Cell Count 3.85 M/uL (4.33-5.43)
[2019-10-17 04:37] LABS: Absolute Lymphocytes (CBC) 2.2 K/uL (0.7-4.9); Basophils % 0.7 % (0-1.3); Hematocrit 37.5 % (39.6-49.0); Lymphocytes % 23.8 % (15.3-44.8); MPV 8.5 fL (7.6-11.3)
[2019-10-17 04:56] LABS: BUN Blood Urea Nitrogen 11 mg/dL (7-18); Bicarbonate 27 mmol/L (21-32); Glucose Level 97 mg/dL (74-106); Potassium 3.7 mmol/L (3.5-5.1); Sodium Level 138 mmol/L (136-145)
[2019-10-17] MEDS ORDERED: dilTIAZem HCL 25 MG/5 ML VIAL IV PRN (07:24)
[2019-10-17] MEDS: LIDOCAINE 4% PATCH TOP SCH (08:30)
[2019-10-17] MEDS: AMIODARONE HCL 200 MG TAB PO SCH (08:30)
[2019-10-17] MEDS: APIXABAN 5 MG TABLET PO SCH (08:30)
[2019-10-17] MEDS: GUAIFENESIN 600 MG SA TAB PO SCH (08:30)
[2019-10-17] MEDS: GABAPENTIN 100 MG CAP PO SCH ×2 (08:30→12:59)
[2019-10-17] MEDS: FAMOTIDINE 20 MG TAB PO SCH (08:30)
[2019-10-17] MEDS: ENSURE ENLIVE 237 ML CAN PO SCH (08:32)
[2019-10-17] MEDS ORDERED: METOPROLOL TAR 50 MG TAB PO SCH (09:00)
--- NOTE | 2019-10-17 14:27 | P.DS ---
Admission Date: 10/12/19 Discharge Date: 10/17/19 Disposition: TRANSFER TO SNF - REHAB Discharge Condition: GOOD Reason for Admission: left leg pain and swelling - Problems (1) Ischemic leg Current Visit: Yes Status: Acute (2) HTN (hypertension), benign Current Visit: Yes Status: Acute (3) Afib Current Visit: Yes Status: Acute (4) Hx of AKA (above knee amputation) Onset Date: 09/06/17 Current Visit: No Status: Acute Brief History of Present Illness: 74-year-old male past medical history of HTN, chronic tobacco use, history of AFib on chronic anticoagulation with Eliquis and on amiodarone, however state he does not take any meds now , history of PAD s/p failed salvage angioplasty of RLE and resultant BKA last year a a facility in [place] -he is unable to say where ; presented for worsening pain and swelling in his left leg since last 3 weeks , pain continue to worsen with movt and later at rest . He has been taking Tylenol #3, Which is a leftover from left shoulder injuries, a vehicle for left leg pain. He presented today because of worsening pattern of pain. He denies any fever or chills. He denies any nausea vomiting no diarrhea. He states he has never had any angiogram or workup of his left leg in the past. He has not been seen any physician including head of history since the last 1 year. Review of his old records show patient is supposed to be on Eliquis and amiodarone Hospital Course: Patient presented for left leg pain. He has a history of atrial fibrillation on chronic anticoagulation with Eliquis, PAD, status post right AKA. Patient did not want revascularization. General surgeon was consulted and performed left BKA. Patient recovered well from the procedure. The surgical wound appears to be clean and dry. Patient experienced several episode of atrial fibrillation with RVR. This was controlled by IV metoprolol. He has been taking metoprolol 50 mg b.i.d. NOW his heart rate is under control. He was approved for SNF placement. He was instructed to follow a general surgeon in 1 or 2 weeks to remove kai. He will follow head of history in 1 or 2 weeks. Vital Signs/Physical Exam: Temp Pulse Resp BP Pulse Ox 98.4 F 60 17 123/60 96 10/17/19 08:00 10/17/19 08:29 10/17/19 08:00 10/17/19 08:29 10/17/19 08:00 General: Alert, In no apparent distress, Oriented x3, Cooperative HEENT: Atraumatic, Normocephalic, PERRLA, Mucous membr. moist/pink Neck: Supple, 2+ carotid pulse no bruit, JVD not distended Respiratory: Clear to auscultation bilaterally, Normal air movement Cardiovascular: No edema, Normal pulses, Regular rate/rhythm, Normal S1 S2, Abnormal S3 Gastrointestinal: Normal bowel sounds, Hypoactive, Soft and benign, Non- distended Musculoskeletal: No clubbing, No swelling, Other (surgical wound appears to be clean and dry) Integumentary: No rashes, No breakdown, No significant lesion Neurological: Normal gait, Normal speech, Normal strength at 5/5 x4 extr, Normal tone, Sensation intact, Cranial nerves 3-12 intact, Normal reflexes 2+, Normal affect Laboratory Data at Discharge: WBC 9.4 K/uL (4.3-10.9) 10/17/19 04:13 Hgb 12.6 g/dL (13.6-17.9) L 10/17/19 04:13 Hct 37.5 % (39.6-49.0) L 10/17/19 04:13 Plt Count 221 K/uL (152-406) 10/17/19 04:13 PT 11.3 SECONDS (9.5-12.5) 10/12/19 11:34 INR 0.96 10/12/19 11:34 APTT 36.1 SECONDS (24.3-36.9) 10/12/19 11:34 Sodium 138 mmol/L (136-145) 10/17/19 04:13 Potassium 3.7 mmol/L (3.5-5.1) 10/17/19 04:13 BUN 11 mg/dL (7-18) 10/17/19 04:13 Creatinine 0.47 mg/dL (0.55-1.3) L 10/17/19 04:13 Glucose 97 mg/dL (74-106) 10/17/19 04:13 Phosphorus 2.8 mg/dL (2.5-4.9) 10/16/19 18:20 Magnesium 2.2 mg/dL (1.8-2.4) 10/16/19 18:20 Total Bilirubin 0.6 mg/dL (0.2-1.0) 10/13/19 06:21 AST 19 U/L (15-37) 10/13/19 06:21 ALT 10 U/L (12-78) L 10/13/19 06:21 Alkaline Phosphatase 83 U/L (45-117) 10/13/19 06:21 Home Medications: Amiodarone HCl [Cordarone*] 200 mg PO DAILY 30 Days tab 10/17/19 Apixaban [Eliquis] 5 mg PO BID 30 Days tablet 10/17/19 Atorvastatin Calcium [Lipitor] 80 mg PO BEDTIME 30 Days tab 10/17/19 Gabapentin [Neurontin*] 100 mg PO TID 30 Days cap 10/17/19 Metoprolol Tartrate [Lopressor*] 50 mg PO BID 30 Days tab 10/17/19 Tramadol HCl [Ultram] 50 mg PO Q6H PRN #30 tablet 10/17/19 clindamycin HCL [Clindamycin HCl] 300 mg PO TID #15 capsule 10/17/19 New Medications: Amiodarone HCl [Cordarone*] 200 mg PO DAILY 30 Days tab Apixaban [Eliquis] 5 mg PO BID 30 Days tablet Atorvastatin Calcium [Lipitor] 80 mg PO BEDTIME 30 Days tab clindamycin HCL [Clindamycin HCl] 300 mg PO TID #15 capsule Gabapentin [Neurontin*] 100 mg PO TID 30 Days cap Metoprolol Tartrate [Lopressor*] 50 mg PO BID 30 Days tab Tramadol HCl [Ultram] 50 mg PO Q6H PRN #30 tablet PRN Reason: pain Patient Discharge Instructions: 1. Please follow a general surgeon in 2 weeks. 2. Please follow head of history in 1 or 2 weeks. 3. Please call ED or PCP if having chest pain or palpitation. Diet: AHA Activity: Fall precautions (Pls follow up with surgeon in 1-2 weeks, Pls follow up with head of history in 2 weeks) Time spent managing pt's care (in minutes): 32
[2019-10-17 14:30] VITALS: BP 138/62; TEMP 98.8
--- NOTE | 2019-10-17 19:32 | PN ---
Date of Progress Note: 10/17/2019 Diagnosis: Status post left below-knee amputation. Subjective: Patient is doing well. Tolerating diet. No complaint. No fever. Objective: Chest: Clear. Abdomen: Soft and depressible. Stump looks intact . [place] are intact. EZEQUIEL was removed. No cyanosis. Plan: The patient will eventually be discharged. I believe to SNF. We just asked the patient to lee ve the kai removed in 2 weeks if it looks okay. Follow with my office if possible in a week from now. KATALINA/KEMI Voice ID: [id number] Report ID: [id number]
== END 2019-10-17 15:38 | DRG 241 ==
LOC: ER 10:59 → ERHOLD 14:56 → 2ND 17:12
PROVIDERS: ADMIT Internal Medicine; ATTEND Internal Medicine
PROC: 0Y6J0Z1 Detachment at Left Lower Leg, High, Open Approach (ICD-10-PCS; principal; 2019-10-13 10:30)
DX: I73.9 Peripheral vascular disease, unspecified (principal); I99.8 Other disorder of circulatory system; I10 Essential (primary) hypertension; I48.91 Unspecified atrial fibrillation; Z89.511 Acquired absence of right leg below knee
CPT/HCPCS: 36415; 80048; 80053; 80202; 83605; 83735; 84100; 84145; 85025; 85610; 85730; 87040; 88307; 93005; 93926; 94640; 96361; 96374; 96375; 97110; 97112; 97161; 97164; 97166; 97530; 99285; J1160; J1170; J1650; J1940; J2250; J2270; J2370; J2405; J2704; J3010; J3370; J7030; J7040; J7120